=== PATIENT | female | born 1940 | race Caucasian/White ===

== ENCOUNTER 2019-12-26 11:33 | Emergency (ER) | payer MEDICARE, SELFPAY ==
--- NOTE | ~2019-12-26 | XR_ITS ---
EXAMINATION: XR chest 2V DATE: 12/26/2019 12:11 INDICATION: Shortness of breath TECHNIQUE: frontal and lateral views of the chest were obtained. COMPARISON: Chest radiograph dated 05/04/2019 FINDINGS: Minimal streaky bibasilar atelectasis. Calcified nodule at the left lung base consistent with old gra nulomatous disease. No other airspace opacities, pulmonary edema, pleural effusion or pneumothorax. T he cardiomediastinal silhouette is normal. Atherosclerotic thoracic aorta. Mild scattered degenerativ e skeletal changes. IMPRESSION: 1. Minimal bibasilar atelectasis. Reviewed, dictated and finalized at location [facility].
[2019-12-26 11:30] VITALS: BP 100/83; PULSE 89; RESP 15; TEMP 36.7; O2SAT 96
--- NOTE | 2019-12-26 11:37 | ED.SOB ---
HPI - SOB/Dyspnea General Chief Complaint: Shortness of Breath/Dyspnea Stated Complaint: SOB Time Seen by Provider: 12/26/19 11:36 Source: patient and EMS Mode of arrival: EMS Limitations: no limitations History of Present Illness HPI Narrative: Patient is a 79-year-old female with a history of COPD who presents for evaluation of cough and shortness of breath. Patient reports dry cough over the past several days, states that she has been having increased shortness of breath from baseline, is unable to go up even a stair to without becoming severely dyspneic. Patient denies fever, chills, chest pain. No calf pain or lower extremity swelling. Patient states that she does have a history of severe COPD and follows with Dr. Vega. She states she was supposed to see her furnace door tender tomorrow but canceled the appointment since she has been feeling so short of breath. Patient is not currently on any antibiotic therapy. She has tried albuterol nebulizer therapy with improvement in her symptoms. Patient is not on any home oxygen. Related Data Home Medications Medication Instructions Recorded Confirmed blood-glucose meter #1 each 04/24/19 06/28/19 diphenhydramine HCl 25 mg tablet 25 mg PO Q6H PRN 04/24/19 06/28/19 lancets #50 each 04/24/19 06/28/19 lansoprazole 15 mg capsule,delayed 15 mg PO DAILY 04/24/19 06/28/19 release sertraline 100 mg tablet 100 mg PO BID tablet 04/24/19 06/28/19 buspirone 5 mg tablet 5 mg PO TID 07/24/19 Allergies Allergy/AdvReac Type Severity Reaction Status Date / Time cephalexin Allergy Unknown Unknown Verified 12/26/19 11:58 ciprofloxacin Allergy Unknown Unknown Verified 12/26/19 11:58 clindamycin Allergy Unknown Unknown Verified 12/26/19 11:58 influenza virus vaccine, Allergy Unknown Unknown Verified 12/26/19 11:58 specific Influenza Virus Vaccines Allergy Unknown Unknown Verified 12/26/19 11:58 levofloxacin Allergy Unknown Unknown Verified 12/26/19 11:58 Penicillins Allergy Unknown Unknown Verified 12/26/19 11:58 pneumococcal vaccine Allergy Unknown Unknown Verified 12/26/19 11:58 Sulfa (Sulfonamide Allergy Unknown Unknown Verified 12/26/19 11:58 Antibiotics) tetanus and diphtheria Allergy Unknown Unknown Verified 12/26/19 11:58 toxoids tetanus immune globulin Allergy Unknown Unknown Verified 12/26/19 11:58 Tetanus Vaccines and Toxoid Allergy Unknown Unknown Verified 12/26/19 11:58 metformin AdvReac Unknown Verified 12/26/19 11:58 Review of Systems Review of Systems: Narrative: CONSTITUTIONAL: Denies fever, chills, or sweats. ENT: Denies rhinorrhea, congestion, sore throat, or otalgia. CARDIOVASCULAR: Denies chest pain, palpitations, or edema. RESPIRATORY: Reports cough and shortness of breath GASTROINTESTINAL: Denies abdominal pain, nausea, vomiting, or diarrhea. GENITOURINARY: Denies dysuria or hematuria. SKIN: Denies rash or itching. MUSCULOSKELETAL: Denies back pain, joint pain, or myalgia. NEUROLOGIC: Denies headache, numbness, or weakness. [facility] Past Medical History Medical History Bladder cancer Cataract Chronic pain Colitis COPD (chronic obstructive pulmonary disease) Depression Hyperlipidemia Hypertension Hypothyroidism Osteoarthritis Pneumonia Seasonal allergies Type 2 diabetes mellitus Surgical History Surgical History History of cataract removal with insertion of prosthetic lens Family History Family History Mother Hypertension Patient's mother is Family history of thoracic aortic aneurysm Sibling Patient's sister is in good health Acute myocardial infarction Father Family history of diabetes mellitus in first degree relative Family history of malignant neoplasm of brain, Onset Age: 85 Malignant neoplasm of prostate Bone tumor Father Diabetes mellitus Social Histor
--- NOTE | 2019-12-26 11:41 | ECG_ITS ---
Measurements Intervals [place] Rate: 83 P: 63 KS: 150 QRS: -47 QRSD: 82 T: 62 QT: 378 QTc: 445 Interpretive Statements SINUS RHYTHM LEFT ANTERIOR FASCICULAR BLOCK BASELINE ARTIFACT- I, II, III, AVR, AVL, AVF, V6 ABNORMAL ECG Electronically Signed On 12-26-2019 12:43:47 CDT by Parish Del Valle D.O.
[2019-12-26 12:04] LABS: Basophils Absolute Auto 0.1 K/mm3 (0.0-0.1); Basophils Percent Auto 0.8 % (0.2-1.2); Eosinophils Absolute Auto 0.5 K/mm3 (0-0.3); Eosinophils Percent Auto 4.6 % (0-4.4); Hematocrit 40.3 % (37.0-47.0); Hemoglobin 13.3 g/dL (12.0-15.0); Immature Granulocyte Absolute 0.02 K/mm3 (0.00-0.031); Immature Granulocyte Percent A 0.2 % (0-0.5); Lymphocytes Percent Auto 15.9 % (18.3-44.2); Mean Corpuscular Hemoglobin 29.7 pg (26-34); Mean Platelet Volume 9.5 fl (7.4-10.4); Monocytes Absolute Auto 0.7 K/mm3 (0.1-0.6); Monocytes Percent Auto 7.1 % (2.6-8.5); Neutrophils Absolute Auto 7.2 K/mm3 (1.3-6.7); Neutrophils Percent Auto 71.4 % (45.5-73.1); Platelet Count Result 211 k/mm3 (150-375); Red Blood Count 4.48 M/mm3 (4.2-5.4); Red Cell Distribution Width 13.2 % (11.5-14.5); White Blood Count 10.1 K/mm3 (4.5-10.0)
[2019-12-26 12:22] LABS: Blood Urea Nitrogen 19 mg/dL (7-17); Calcium 9.2 mg/dL (8.4-10.2); Carbon Dioxide 25 mmol/L (22-30); Chloride 102 mmol/L (98-107); Estimated CRCL calculation 54 ml/min; Estimated Glomerular Filt Rate > 60; Glucose 193 mg/dL (65-105); Potassium 4.5 mmol/L (3.4-5.0); Sodium 137 mmol/L (137-145)
[2019-12-26 12:48] VITALS: PULSE 83; RESP 21
[2019-12-26 13:15] VITALS: BP 110/89; PULSE 92; RESP 22; O2SAT 94
[2019-12-26 14:19] VITALS: PULSE 84; RESP 20; O2SAT 91
--- NOTE | 2019-12-26 14:40 | PC.NURSE ---
Pt walked devine with 02 monitoring. Pt remained 90-94% while walking and talking. EDP provider made aware
[2019-12-26 14:53] VITALS: BP 118/90; PULSE 92; RESP 21; O2SAT 94
[2019-12-26 23:23] LABS: SARS-CoV-2 RNA PCR Negative
== END 2019-12-26 14:55 | disposition home or self-care (01) ==
PROVIDERS: Emergency Provider Emergency Medicine; PCP Internal Medicine
DX: J44.1 Chronic obstructive pulmonary disease with (acute) exacerbation (principal); Z85.51 Personal history of malignant neoplasm of bladder; Z20.828 Contact with and (suspected) exposure to other viral communicable diseases; E78.5 Hyperlipidemia, unspecified; F32.9 Major depressive disorder, single episode, unspecified; I10 Essential (primary) hypertension; E03.9 Hypothyroidism, unspecified; M19.90 Unspecified osteoarthritis, unspecified site; E11.9 Type 2 diabetes mellitus without complications; Z87.891 Personal history of nicotine dependence; Z98.49 Cataract extraction status, unspecified eye; Z96.1 Presence of intraocular lens; I44.4 Left anterior fascicular block; Z79.84 Long term (current) use of oral hypoglycemic drugs
CPT/HCPCS: 36415; 71046; 80048; 85025; 87635; 93005; 99284; C9803; U0003

== ENCOUNTER 2020-01-21 10:46 | Outpatient (CLI) | payer MEDICARE, SELFPAY ==
[2020-01-21 11:30] LABS: Hemoglobin A1C 7.9 % (<5.7)
== END 2020-01-21 10:47 | disposition home or self-care (01) ==
PROVIDERS: PCP Internal Medicine; Visit Provider Nurse Practitioner
DX: E11.9 Type 2 diabetes mellitus without complications (principal)
CPT/HCPCS: 36415; 83036

== ENCOUNTER 2020-01-24 10:14 | Emergency (ER) | payer MEDICARE, SELFPAY ==
--- NOTE | ~2020-01-24 | CT_ITS ---
EXAMINATION: CT cervical spine wo con DATE: 01/24/2020 11:20 INDICATION: Fall from bed. Head and neck pain. TECHNIQUE: Computed tomography (CT) of the cervical spine was performed without intravenous contrast. Automated exposure control and iterative reconstruction technique were employed. Exam dose: 399.64 mGy-cm total exam DLP. COMPARISON: 04/03/2019 cervical spine FINDINGS: There is straightening of the cervical spine. There is minimal anterolisthesis at C4-5. There is severe degenerative disc disease, posterior spurring and mild retrolisthesis at C5-6. There is severe degenerative disc disease at C6-7. Particular prominent uncovertebral joint spurring is noted on the right at C5-6 and C6-7 and moderate ly probably on the left at C5-6. There is degenerative change of the apophyseal joints. C1 and C2 are normally aligned and the odontoid process is intact. No fracture or dislocation or lock ed facet is evident. No prevertebral soft tissue swelling. IMPRESSION: Extensive degenerative changes; no fracture or dislocation or locked facet Reviewed, dictated and finalized at [facility]. Reviewed, dictated and finalized at location A. IMPRESSION: Extensive degenerative changes; no fracture or dislocation or lock ed facet
--- NOTE | ~2020-01-24 | CT_ITS ---
EXAMINATION: CT chest abdomen pelvis w con DATE: 01/24/2020 11:20 INDICATION: Left rib pain post fall TECHNIQUE: Computed tomography (CT) of the chest, abdomen, and pelvis was performed with 100 mL Omnip aque-350 intravenous contrast. Automated exposure control and iterative reconstruction technique were employed. The dose-length product was 1408.18 mGy-cm. COMPARISON: Chest CT dated 04/06/[address] abdomen and pelvis dated 07/22/2015 FINDINGS: CHEST CT: Small thin-walled cavitary lesion in the right middle lobe. Diffuse mild bronchial wall thickening. B ronchiectasis in the right lower lobe with significant improvement in now minimal tree-in-bud opaciti es likely related to chronic infection. Discoid atelectasis at the posterior sulcus of the right lowe r lobe and mild discoid atelectasis at the posterior right upper lobe. Calcified left lower lobe nodu le consistent with old granulomatous disease. No pulmonary edema, pleural effusion or pneumothorax. H eart size is normal. Atherosclerotic coronary artery calcification. No pericardial effusion. Aortic v alve calcification. Thoracic aorta is normal in caliber with no dissection or traumatic aortic injury . Small sliding-type hiatal hernia. No pathologically enlarged thoracic lymphadenopathy. Mild thoraci c dextrocurvature with mild to moderate spondylosis. No rib fractures identified although acute nondi splaced rib fractures can be occult even on CT. ABDOMEN/PELVIS CT: Multiple small hepatic and splenic calcifications consistent with old granulomatous disease. Subtle g allstone at the neck of the normal-appearing gallbladder. No wall thickening or pericholecystic infla mmatory change to suggest acute cholecystitis. Pancreas and bilateral adrenal glands are normal. Ther e are bilateral renal cysts the larger on the left measuring 1.6 cm. There is moderate colonic divert iculosis with a sigmoid predominance. There is no adjacent inflammatory change to suggest diverticul itis. Small bowel and appendix are normal. Bladder is normal. The uterus is not identified and has radha kohler been surgically resected. Bilateral adnexa are unremarkable. No free intraperitoneal gas or flui d. No pathologically enlarged abdominal or pelvic lymphadenopathy. There is calcified atherosclerosis of the aorta and many of the other arteries. Moderate lumbar spondylosis with grade 1 spondylolisthe sis at L3-L4 through L5-S1 no acute fractures identified. IMPRESSION: 1. No fracture or acute vascular or visceral organ injury in the chest, abdomen or pelvis. 2. Bronchiectasis and significant improvement in prior tree-in-bud pattern in the right lower lobe radha kholer sequela of chronic infection. 3. Small sliding-type hiatal hernia. 4. Moderate diverticulosis. Reviewed, dictated and finalized at location A. IMPRESSION: 1. No fracture or acute vascular or visceral organ injury in the chest, abdomen or pelvis. 2. Bronchiectasis and significant improvement in prior tree-in-bud pattern in t he right lower lobe likely sequela of chronic infection. 3. Small sliding-type hiatal hernia. 4. Moderate diverticulosis.
--- NOTE | ~2020-01-24 | CT_ITS ---
EXAMINATION: CT brain wo con DATE: 01/24/2020 11:20 INDICATION: Fall from bed, striking head on nightstand; head and neck and body injuries. Left rib toney n. TECHNIQUE: Computed tomography (CT) of the head was performed without intravenous contrast. The mA wa s adjusted according to patient size. Iterative reconstruction technique was employed. Exam dose: 60 5.33 mGy-cm total exam DLP. COMPARISON: 04/03/2019 CT brain FINDINGS: There is cerebral atherosclerosis. There is nonspecific diminished attenuation of the cereb ral white matter, likely due to chronic small vessel ischemic changes. No intracranial mass lesion or hemorrhage or cerebrovascular accident is evident. No midline shift or mass effect. No subdural or epidural hematoma. No fracture or bone destruction of the cranial vault. Bilateral hyperostosis frontalis interna, not l ikely of any clinical significance. Minimal mucoperiosteal thickening of the left sphenoid sinus. The paranasal sinuses and mastoid air c ells are otherwise unremarkable. IMPRESSION: No acute intracranial finding or skull fracture Cerebral atherosclerosis and chronic small vessel ischemic changes of the cerebral white matter No significant change since 04/03/2019 Reviewed, dictated and finalized at [facility]. Reviewed, dictated and finalized at location A. IMPRESSION: No acute intracranial finding or skull fracture Cerebral atherosclerosis and chronic small vessel ischemic changes of the cereb ral white matter No significant change since 04/03/2019
[2020-01-24 10:19] VITALS: BP 142/79; PULSE 75; RESP 20; TEMP 36.9; O2SAT 97
[2020-01-24 11:00] LABS: Basophils Absolute Auto 0.1 K/mm3 (0.0-0.1); Basophils Percent Auto 0.5 % (0.2-1.2); Eosinophils Absolute Auto 0.5 K/mm3 (0-0.3); Eosinophils Percent Auto 4.5 % (0-4.4); Hematocrit 39.3 % (37.0-47.0); Hemoglobin 13.1 g/dL (12.0-15.0); Immature Granulocyte Absolute 0.04 K/mm3 (0.00-0.031); Immature Granulocyte Percent A 0.4 % (0-0.5); Lymphocytes Absolute Auto 3.38 K/mm3 (0.9-3.2); Lymphocytes Percent Auto 30.1 % (18.3-44.2); Mean Corpuscular HGB Conc 33.3 g/dl (32-36); Mean Corpuscular Hemoglobin 30.1 pg (26-34); Mean Corpuscular Volume 90.3 fl (80-100); Mean Platelet Volume 9.8 fl (7.4-10.4); Monocytes Absolute Auto 1.3 K/mm3 (0.1-0.6); Monocytes Percent Auto 11.7 % (2.6-8.5); Neutrophils Absolute Auto 5.9 K/mm3 (1.3-6.7); Neutrophils Percent Auto 52.8 % (45.5-73.1); Platelet Count Result 206 k/mm3 (150-375); Red Blood Count 4.35 M/mm3 (4.2-5.4); Red Cell Distribution Width 13.2 % (11.5-14.5); White Blood Count 11.2 K/mm3 (4.5-10.0)
[2020-01-24] MEDS: SODIUM CHLORIDE 0.9% IV 500 ML 999 ML IV CONT (11:00)
[2020-01-24 11:03] VITALS: BP 138/76; PULSE 82; RESP 20; O2SAT 96
[2020-01-24 11:12] LABS: Prothrombin Time 13.2 Seconds (11.1-14.7)
[2020-01-24 11:13] LABS: Estimated CRCL calculation 61 ml/min; Estimated Glomerular Filt Rate > 60
[2020-01-24 11:13] LABS: Partial Thromboplastin Time 24.8 SECONDS (22.3-36.8)
[2020-01-24 11:17] LABS: Alanine Aminotransferase 28 U/L (4-35); Albumin Level 4.3 g/dL (3.5-5.1); Alkaline Phosphatase 64 U/L (38-126); Anion Gap 13.7 mmol/L (7-16); Aspartate Amino Transferase 37 U/L (14-36); Bilirubin,Total 0.5 mg/dL (0.2-1.3); Blood Urea Nitrogen 19 mg/dL (7-17); Calcium 9.2 mg/dL (8.4-10.2); Carbon Dioxide 24 mmol/L (22-30); Chloride 101 mmol/L (98-107); Estimated CRCL calculation 61 ml/min; Estimated Glomerular Filt Rate > 60; Glucose 147 mg/dL (65-105); Potassium 4.7 mmol/L (3.4-5.0); Sodium 134 mmol/L (137-145)
--- NOTE | 2020-01-24 11:37 | ED.ABDPAIN ---
HPI - Abdominal Pain General Chief Complaint: Fall Stated Complaint: L RIB PAIN S/P FALL Time Seen by Provider: 01/24/20 10:16 Source: patient Mode of arrival: ambulatory Limitations: no limitations History of Present Illness HPI narrative: Patient is a 79-year-old female who presents with family after sustaining a ground-level fall in the middle night after slipping when getting out of bed falling into a sharp object striking her in the left ribs patient has had severe pain in the left lateral lower rib region since also struck the head and had a parietal hematoma. Patient denies syncope loss of consciousness lightheadedness dizziness. Patient with pain that has been persistent since the fall was able to get up in a short period of time his family came quickly. Patient has taken Aleve with minimal improvement presents per private vehicle in no distress. Related Data Home Medications Medication Instructions Recorded Confirmed blood-glucose meter #1 each 04/24/19 01/21/20 lansoprazole 15 mg capsule,delayed 15 mg PO DAILY 04/24/19 01/21/20 release buspirone 5 mg tablet 5 mg PO TID 07/24/19 01/21/20 budesonide [Pulmicort] 0.5 mg INHALATION BID 01/24/20 fluticasone propionate [Flonase 2 spray INTRANASAL Q12HR 01/24/20 Allergy Relief] ipratropium-albuterol 3 ml INHALATION Q4H PRN 01/24/20 nebivolol [Bystolic] 10 mg PO DAILY 01/24/20 01/24/20 sertraline 200 mg PO DAILY 01/24/20 01/24/20 Allergies Allergy/AdvReac Type Severity Reaction Status Date / Time cephalexin Allergy Unknown Unknown Verified 01/24/20 10:29 ciprofloxacin Allergy Unknown Unknown Verified 01/24/20 10:29 clindamycin Allergy Unknown Unknown Verified 01/24/20 10:29 influenza virus vaccine, Allergy Unknown Unknown Verified 01/24/20 10:29 specific Influenza Virus Vaccines Allergy Unknown Unknown Verified 01/24/20 10:29 levofloxacin Allergy Unknown Unknown Verified 01/24/20 10:29 Penicillins Allergy Unknown Unknown Verified 01/24/20 10:29 pneumococcal vaccine Allergy Unknown Unknown Verified 01/24/20 10:29 Sulfa (Sulfonamide Allergy Unknown Unknown Verified 01/24/20 10:29 Antibiotics) tetanus and diphtheria Allergy Unknown Unknown Verified 01/24/20 10:29 toxoids tetanus immune globulin Allergy Unknown Unknown Verified 01/24/20 10:29 Tetanus Vaccines and Toxoid Allergy Unknown Unknown Verified 01/24/20 10:29 metformin AdvReac Unknown Verified 01/24/20 10:29 Review of Systems Review of Systems: All systems reviewed & are unremarkable except as noted in HPI and below PMFSH Past Medical History Medical History Bladder cancer Cataract Chronic pain Colitis COPD (chronic obstructive pulmonary disease) COPD with exacerbation Depression Hyperlipidemia Hypertension Hypothyroidism Osteoarthritis Pneumonia Seasonal allergies Type 2 diabetes mellitus Surgical History Surgical History History of cataract removal with insertion of prosthetic lens Family History Family History Mother Hypertension Patient's mother is Family history of thoracic aortic aneurysm Sibling Patient's sister is in good health Acute myocardial infarction Father Family history of diabetes mellitus in first degree relative Family history of malignant neoplasm of brain, Onset Age: 85 Malignant neoplasm of prostate Bone tumor Father Diabetes mellitus Social History Social History Smoking packs per day: 2 Smoking cigarettes per day: 40.0 Years smoked: 58 Smoking pack-years: 116.00 Smoking status: Former smoker Tobacco type: cigarettes Second hand tobacco smoke exposure: Yes Smoking end date: 03/19/19 Alcohol intake: never Substance use: never Substance use type: does not use Gender identity (if verbaliz
[2020-01-24 12:47] LABS: Add Urine Microscopic? YES; Appearance Urine Clear (Clear); Bacteria Urine Trace /hpf; Bilirubin Urine Negative (Negative); Blood Urine Negative (Negative); Color Urine Straw (Yellow); Glucose Urine UA Negative (Negative); Ketones Urine Negative (Negative); Leukocyte Esterase Ur Negative LEU/UL (Negative); Nitrate Urine Negative (Negative); Protein Urine Negative (Negative); RBC Urine 0-2 /hpf (0-2); Urobilinogen Urine Negative mg/dL (<2.0); WBC Urine 0-3 /hpf
[2020-01-24 12:53] LABS: Specific Grav Ur 1.031 (1.001-1.035)
[2020-01-24] MEDS: KETOROLAC 15 MG/ML VIAL (*BKC) 10 MG IV PUSH (13:10)
[2020-01-24 13:33] VITALS: BP 123/85; PULSE 73; RESP 16; TEMP 36.8; O2SAT 97
== END 2020-01-24 13:35 | disposition home or self-care (01) ==
PROVIDERS: Emergency Medicine Emergency Medical Services; Emergency Provider Emergency Medicine; PCP Internal Medicine
DX: S09.90XA Unspecified injury of head, initial encounter (principal); S21.102A Unspecified open wound of left front wall of thorax without penetration into thoracic cavity, initial encounter; J44.9 Chronic obstructive pulmonary disease, unspecified; E11.9 Type 2 diabetes mellitus without complications; E78.5 Hyperlipidemia, unspecified; I10 Essential (primary) hypertension; E03.9 Hypothyroidism, unspecified; M19.90 Unspecified osteoarthritis, unspecified site; Z79.84 Long term (current) use of oral hypoglycemic drugs; F32.9 Major depressive disorder, single episode, unspecified; Z85.51 Personal history of malignant neoplasm of bladder; Z98.49 Cataract extraction status, unspecified eye; Z96.1 Presence of intraocular lens; Z87.891 Personal history of nicotine dependence; W06.XXXA Fall from bed, initial encounter
CPT/HCPCS: 36415; 70450; 71260; 72125; 74177; 80053; 81001; 85025; 85610; 85730; 96365; 96375; 99284; A9270; J0131; J1885; J7040; Q9967

== ENCOUNTER 2020-02-04 13:21 | Emergency (ER) | payer MEDICARE, SELFPAY ==
--- NOTE | ~2020-02-04 | XR_ITS ---
EXAMINATION: XR wrist LT min 3V EXAM DATE: 02/04/2020 13:52 INDICATION: Initial encounter following injury, with pain of the wrist bilaterally. TECHNIQUE: Left wrist frontal, frontal with ulnar deviation, oblique and lateral projections obtained and reviewed. There is no prior study for comparison. FINDINGS: Left wrist scapholunate joint space is maintained. There is mild to moderate 1st carpometac arpal primary osteoarthritis. There are no acute fractures or dislocations identified. There is no s ubcutaneous gas. The soft tissue is unremarkable. There are no radiopaque foreign bodies. IMPRESSION: 1. XR wrist LT min 3V exam without acute osseous findings. Reviewed, dictated and finalized at location B.
--- NOTE | ~2020-02-04 | XR_ITS ---
EXAMINATION: XR wrist RT min 3V EXAM DATE: 02/04/2020 13:52 INDICATION: Initial encounter following injury, with pain of the wrists. TECHNIQUE: Right wrist frontal, frontal with ulnar deviation, oblique and lateral projections obtain ed and reviewed. Comparison is made to prior examination from 03/08/2017. FINDINGS: Right wrist scapholunate joint space is maintained. There are no acute fractures or disloca tions identified. There is no subcutaneous gas. The soft tissue is unremarkable. There are no rad iopaque foreign bodies. IMPRESSION: 1. XR wrist RT min 3V exam without acute osseous findings. Reviewed, dictated and finalized at location B.
--- NOTE | 2020-02-04 13:26 | ED.EXTPRO ---
HPI - Extremity Problem General Chief complaint: Extremity Problem,Nontraumatic Stated complaint: Pain in both hands Source: patient and RN notes reviewed Mode of arrival: ambulatory Limitations: no limitations History of Present Illness HPI Narrative: The left handed patient, on several medications, presents with hand pain. The patient slipped last night, without falling, landing upright striking furnishings with her bilateral palms. She complains of mild pain and bruising of her proximal hand/distal wrist at the thenar eminences. No bleeding, deformity, snuffbox tenderness; symptoms are mild, worse with motion. Related Data Home Medications Medication Instructions Recorded Confirmed blood-glucose meter #1 each 04/24/19 01/21/20 lansoprazole 15 mg capsule,delayed 15 mg PO DAILY 04/24/19 01/21/20 release buspirone 5 mg tablet 5 mg PO TID 07/24/19 01/21/20 budesonide [Pulmicort] 0.5 mg INHALATION BID 01/24/20 fluticasone propionate [Flonase 2 spray INTRANASAL Q12HR 01/24/20 Allergy Relief] ipratropium-albuterol 3 ml INHALATION Q4H PRN 01/24/20 nebivolol [Bystolic] 10 mg PO DAILY 01/24/20 01/24/20 sertraline 200 mg PO DAILY 01/24/20 01/24/20 Allergies Allergy/AdvReac Type Severity Reaction Status Date / Time cephalexin Allergy Unknown Unknown Verified 01/24/20 10:29 ciprofloxacin Allergy Unknown Unknown Verified 01/24/20 10:29 clindamycin Allergy Unknown Unknown Verified 01/24/20 10:29 influenza virus vaccine, Allergy Unknown Unknown Verified 01/24/20 10:29 specific Influenza Virus Vaccines Allergy Unknown Unknown Verified 01/24/20 10:29 levofloxacin Allergy Unknown Unknown Verified 01/24/20 10:29 Penicillins Allergy Unknown Unknown Verified 01/24/20 10:29 pneumococcal vaccine Allergy Unknown Unknown Verified 01/24/20 10:29 Sulfa (Sulfonamide Allergy Unknown Unknown Verified 01/24/20 10:29 Antibiotics) tetanus and diphtheria Allergy Unknown Unknown Verified 01/24/20 10:29 toxoids tetanus immune globulin Allergy Unknown Unknown Verified 01/24/20 10:29 Tetanus Vaccines and Toxoid Allergy Unknown Unknown Verified 01/24/20 10:29 metformin AdvReac Unknown Verified 01/24/20 10:29 Review of Systems Review of Systems: Narrative: During history it is apparent patient has chronic, mild cough for which she says she missed her nebulizer treatment today, and saw her breeding manager with chest x-ray last week General/Constitutional: No weight loss,fever Eyes: N0: Redness,discharge Ears/Nose/Throat: No: Epistaxis,ear discharge Respiratory: Denies: Hemoptysis Gastrointestinal: No Vomiting, Bleeding-rectal Skin: No Lumps, eruption Neurologic: No Focal Weakness,Sz Hematologic: Denies: Petechiae/Purpura Psychiatric: No: Suicida ideationl All Other Systems: Reviewed and Negative PMFSH Social History Social History Smoking packs per day: 2 Smoking cigarettes per day: 40.0 Years smoked: 58 Smoking pack-years: 116.00 Smoking status: Former smoker Tobacco type: cigarettes Second hand tobacco smoke exposure: Yes Smoking end date: 03/19/19 Alcohol intake: never Substance use: never Substance use type: does not use Gender identity (if verbalized by the patient): Female Spiritual care concerns: No Agree to blood products: Yes Comments At time of signature, agree with nursing past medical, surgical, social and family history. There is no relevant family history pertinent to the presenting complaint Exam Narrative: Exam Narrative: General Appearance: Well appearing, Well nourished, No distress EYE: PERRLA, EOMI, Conjunctiva clear Ears: External ear normal Nose: Normal nose, Nares clear Neck: Supple Respiratory: Airway patent, No respiratory distress MS-hand: Normal strength (mostly intact, limited flexion/extension by pain), Tenderness prox thumb MC at thenar eminence , with mild decreased ROM, Swelling/ bruising bila
[2020-02-04 13:29] VITALS: BP 154/125; PULSE 80; RESP 30; TEMP 37.2; O2SAT 98
== END 2020-02-04 14:23 | disposition home or self-care (01) ==
PROVIDERS: Emergency Provider Emergency Medicine; PCP Internal Medicine
DX: S60.222A Contusion of left hand, initial encounter (principal); S60.221A Contusion of right hand, initial encounter; W18.41XA Slipping, tripping and stumbling without falling due to stepping on object, initial encounter; Z87.891 Personal history of nicotine dependence; E78.00 Pure hypercholesterolemia, unspecified; I10 Essential (primary) hypertension; J44.9 Chronic obstructive pulmonary disease, unspecified; K21.9 Gastro-esophageal reflux disease without esophagitis; M19.90 Unspecified osteoarthritis, unspecified site; E11.9 Type 2 diabetes mellitus without complications; F41.9 Anxiety disorder, unspecified; F32.9 Major depressive disorder, single episode, unspecified
CPT/HCPCS: 73110; 99214; G0463

== ENCOUNTER 2020-08-01 22:31 | Emergency (ER) | payer MEDICARE, SELFPAY ==
--- NOTE | ~2020-08-01 | XR_ITS ---
XR chest 1V portable DATE: 08/01/2020 23:34 INDICATION: Shortness of breath TECHNIQUE: Portable AP chest on August 01, 2020 at 2335 COMPARISON: 12/25/2019 PA and lateral chest 01/24/2020 CT chest abdomen pelvis FINDINGS: Normal heart size. Is aortic calcification and mild unfolding. No hilar or mediastinal enla rgement. Bilateral hyperinflation. There is mild infiltrate and/atelectasis in the lower lung zones. No pleural effusion or pulmonary vascular congestion or pneumothorax. Diffuse osteopenia. IMPRESSION: Patchy bilateral lower lung infiltrate and/atelectasis Bilateral hyperinflation Reviewed, dictated and finalized at location A. [employer]
[2020-08-01 22:31] VITALS: BP 141/72; PULSE 101; RESP 20; TEMP 36.7; O2SAT 96
--- NOTE | 2020-08-01 22:57 | ECG_ITS ---
Measurements Intervals [place] Rate: 103 P: 72 DC: 139 QRS: -80 QRSD: 82 T: 69 QT: 345 QTc: 453 Interpretive Statements SINUS TACHYCARDIA LEFT AXIS DEVIATION BORDERLINE R WAVE PROGRESSION, ANTERIOR LEADS BORDERLINE ECG Electronically Signed On 08-02-2020 8:10:27 PREPRESS PROOFER by Parish Del Valle D.O.
--- NOTE | 2020-08-01 22:58 | ED.SOB ---
HPI - SOB/Dyspnea General Chief Complaint: Shortness of Breath/Dyspnea Stated Complaint: high bs and SOB Time Seen by Provider: 08/01/20 22:42 Source: patient Mode of arrival: EMS Limitations: no limitations History of Present Illness HPI Narrative: A 79-year-old female comes into the emergency department with complaints of shortness of breath and pain. Patient states that she has a history of spastic colon and sometimes this can cause pain. She also notes that she has a history of COPD and has been taking breathing treatments for this. She notes that she has been using multiple breathing treatments a day, attributing this to the extreme cold weather. She denies any cough, body aches, headaches or fever/chills. Patient states that she cannot recall when the last time she was tested for Covid. She is not aware that she has been around anybody with Covid. Patient denies any chest pain. She also notes that her blood sugars have been elevated and that this was the other reason for coming in. She stated that when she was picked up her blood pressures were noted to be very high as well. Related Data Home Medications Medication Instructions Recorded Confirmed lansoprazole 15 mg capsule,delayed 15 mg PO DAILY 04/24/19 05/05/20 release buspirone 5 mg tablet 5 mg PO TID 07/24/19 05/05/20 fluticasone propionate [Flonase 2 spray INTRANASAL Q12HR 01/24/20 05/05/20 Allergy Relief] ipratropium-albuterol 3 ml INHALATION Q4H PRN 01/24/20 05/05/20 sertraline 200 mg PO DAILY 01/24/20 05/05/20 Allergies Allergy/AdvReac Type Severity Reaction Status Date / Time cephalexin Allergy Unknown Unknown Verified 05/05/20 10:28 ciprofloxacin Allergy Unknown Unknown Verified 05/05/20 10:28 clindamycin Allergy Unknown Unknown Verified 05/05/20 10:28 influenza virus vaccine, Allergy Unknown Unknown Verified 05/05/20 10:28 specific Influenza Virus Vaccines Allergy Unknown Unknown Verified 05/05/20 10:28 levofloxacin Allergy Unknown Unknown Verified 05/05/20 10:28 Penicillins Allergy Unknown Unknown Verified 05/05/20 10:28 pneumococcal vaccine Allergy Unknown Unknown Verified 05/05/20 10:28 Sulfa (Sulfonamide Allergy Unknown Unknown Verified 05/05/20 10:28 Antibiotics) tetanus and diphtheria Allergy Unknown Unknown Verified 05/05/20 10:28 toxoids tetanus immune globulin Allergy Unknown Unknown Verified 05/05/20 10:28 Tetanus Vaccines and Toxoid Allergy Unknown Unknown Verified 05/05/20 10:28 metformin AdvReac Unknown Verified 05/05/20 10:28 Review of Systems Review of Systems: Narrative: CONSTITUTIONAL: Denies fever, chills, or sweats. EYES: Denies visual changes, redness, or discharge. ENT: Denies rhinorrhea, congestion, sore throat, or otalgia. CARDIOVASCULAR: Denies chest pain, palpitations, or edema. RESPIRATORY: Denies cough or dyspnea. GASTROINTESTINAL: Denies abdominal pain, nausea, vomiting, or diarrhea. GENITOURINARY: Denies dysuria or hematuria. SKIN: Denies rash or itching. MUSCULOSKELETAL: Denies back pain, joint pain, or myalgia. NEUROLOGIC: Denies headache, numbness, dizziness, or weakness. PSYCHIATRIC: Denies anxiety or depression. [facility] Past Medical History Medical History (Updated 08/02/20 @ 00:07 by Francisco Knott DO) Bladder cancer Cataract Chronic pain Colitis COPD (chronic obstructive pulmonary disease) COPD with exacerbation Depression Hyperlipidemia Hypertension Hypothyroidism Osteoarthritis Pneumonia Seasonal allergies Type 2 diabetes mellitus Surgical History Surgical History History of cataract removal with insertion of prosthetic lens Family History Family History Mother Hypertension Patient's mother is Family history of thoracic aortic aneurysm Sibling Patient's sister is in good health Acute myocardial infarction Father Family history of diabetes mellitus in first degre
[2020-08-01] MEDS: methylPREDNISolone SOD SUCC 125 MG VIAL IV PUSH (23:09)
[2020-08-01] MEDS: ALBUTEROL SULFATE NEB 2.5 MG/0.5 ML INH 5 MG INHALATION (23:26)
[2020-08-01] MEDS: IPRATROPIUM BR 0.02% INH SOLN 0.5 MG/2.5 ML VIAL INHALATION (23:26)
[2020-08-01 23:27] VITALS: PULSE 102; RESP 16
[2020-08-01 23:33] LABS: Basophils Absolute Auto 0.1 K/mm3 (0.0-0.1); Basophils Percent Auto 0.7 % (0.2-1.2); Eosinophils Absolute Auto 0.5 K/mm3 (0-0.3); Eosinophils Percent Auto 5.4 % (0-4.4); Hematocrit 40.4 % (37.0-47.0); Hemoglobin 13.3 g/dL (12.0-15.0); Immature Granulocyte Absolute 0.02 K/mm3 (0.00-0.031); Immature Granulocyte Percent A 0.2 % (0-0.5); Lymphocytes Absolute Auto 2.81 K/mm3 (0.9-3.2); Lymphocytes Percent Auto 30.5 % (18.3-44.2); Mean Corpuscular HGB Conc 32.9 g/dl (32-36); Mean Corpuscular Hemoglobin 29.8 pg (26-34); Mean Corpuscular Volume 90.6 fl (80-100); Monocytes Percent Auto 10.4 % (2.6-8.5); Neutrophils Absolute Auto 4.9 K/mm3 (1.3-6.7); Neutrophils Percent Auto 52.8 % (45.5-73.1); Platelet Count Result 198 k/mm3 (150-375); Red Blood Count 4.46 M/mm3 (4.2-5.4); Red Cell Distribution Width 13.4 % (11.5-14.5); White Blood Count 9.2 K/mm3 (4.5-10.0)
[2020-08-01 23:34] VITALS: PULSE 104; RESP 14
[2020-08-01 23:43] LABS: Alanine Aminotransferase 25 U/L (4-35); Alkaline Phosphatase 81 U/L (38-126); Anion Gap 6 mmol/L (8-16); Aspartate Amino Transferase 33 U/L (14-36); Bilirubin,Total 0.5 mg/dL (0.2-1.3); Blood Urea Nitrogen 19 mg/dL (7-17); Calcium 9.3 mg/dL (8.4-10.2); Carbon Dioxide 27 mmol/L (22-30); Chloride 102 mmol/L (98-107); Estimated CRCL calculation 69 ml/min; Estimated Glomerular Filt Rate > 60; Glucose 384 mg/dL (65-105); Potassium 4.4 mmol/L (3.4-5.0); Sodium 135 mmol/L (137-145)
[2020-08-02 00:23] VITALS: BP 136/84; PULSE 102; RESP 20; TEMP 36.7; O2SAT 98
== END 2020-08-02 00:23 | disposition home or self-care (01) ==
PROVIDERS: Emergency Provider Emergency Medicine; PCP Internal Medicine
DX: J44.1 Chronic obstructive pulmonary disease with (acute) exacerbation (principal); E11.65 Type 2 diabetes mellitus with hyperglycemia; E78.5 Hyperlipidemia, unspecified; I10 Essential (primary) hypertension; E03.9 Hypothyroidism, unspecified; Z85.51 Personal history of malignant neoplasm of bladder; M19.90 Unspecified osteoarthritis, unspecified site; F32.9 Major depressive disorder, single episode, unspecified; Z98.49 Cataract extraction status, unspecified eye; Z96.1 Presence of intraocular lens; Z87.891 Personal history of nicotine dependence; R00.0 Tachycardia, unspecified; R94.31 Abnormal electrocardiogram [ECG] [EKG]; Z79.84 Long term (current) use of oral hypoglycemic drugs
CPT/HCPCS: 36415; 71045; 80053; 85025; 93005; 94640; 96374; 99284; J2930

== ENCOUNTER 2020-09-01 11:34 | Outpatient (CLI) | payer MEDICARE, SELFPAY ==
[2020-09-01 12:00] LABS: Basophils Absolute Auto 0.1 K/mm3 (0.0-0.1); Basophils Percent Auto 0.8 % (0.2-1.2); Eosinophils Absolute Auto 0.6 K/mm3 (0-0.3); Eosinophils Percent Auto 6.2 % (0-4.4); Hematocrit 43.4 % (37.0-47.0); Hemoglobin 14.2 g/dL (12.0-15.0); Immature Granulocyte Absolute 0.03 K/mm3 (0.00-0.031); Immature Granulocyte Percent A 0.3 % (0-0.5); Lymphocytes Absolute Auto 2.61 K/mm3 (0.9-3.2); Mean Corpuscular HGB Conc 32.7 g/dl (32-36); Mean Corpuscular Hemoglobin 29.3 pg (26-34); Mean Corpuscular Volume 89.5 fl (80-100); Mean Platelet Volume 9.5 fl (7.4-10.4); Monocytes Absolute Auto 0.9 K/mm3 (0.1-0.6); Monocytes Percent Auto 8.9 % (2.6-8.5); Neutrophils Absolute Auto 5.5 K/mm3 (1.3-6.7); Neutrophils Percent Auto 56.8 % (45.5-73.1); Platelet Count Result 211 k/mm3 (150-375); Red Blood Count 4.85 M/mm3 (4.2-5.4); Red Cell Distribution Width 13.4 % (11.5-14.5); White Blood Count 9.7 K/mm3 (4.5-10.0)
[2020-09-01 12:13] LABS: Alanine Aminotransferase 23 U/L (4-35); Albumin Level 4.4 g/dL (3.5-5.1); Alkaline Phosphatase 71 U/L (38-126); Anion Gap 7 mmol/L (8-16); Aspartate Amino Transferase 31 U/L (14-36); Bilirubin,Total 0.5 mg/dL (0.2-1.3); Blood Urea Nitrogen 17 mg/dL (7-17); Calcium 9.6 mg/dL (8.4-10.2); Carbon Dioxide 29 mmol/L (22-30); Chloride 103 mmol/L (98-107); Cholesterol 162 mg/dL (0-200); Estimated Glomerular Filt Rate 60; Glucose 258 mg/dL (65-105); HDL Direct 53 mg/dL; Potassium 4.3 mmol/L (3.4-5.0); Sodium 139 mmol/L (137-145); Triglycerides 179 mg/dL (<150)
[2020-09-01 12:23] LABS: LDL Cholesterol Direct 81 mg/dL
[2020-09-01 17:51] LABS: Hemoglobin A1C 9.7 % (<5.7)
== END 2020-09-01 11:35 | disposition home or self-care (01) ==
LOC: ANHLAB 17:32
PROVIDERS: Nurse Practitioner; PCP Internal Medicine; Visit Provider Nurse Practitioner
DX: E78.5 Hyperlipidemia, unspecified (principal); I10 Essential (primary) hypertension; E11.9 Type 2 diabetes mellitus without complications
CPT/HCPCS: 36415; 80053; 80061; 83036; 85025

== ENCOUNTER 2021-01-25 10:09 | Emergency (ER) | payer MEDICARE, SELFPAY ==
--- NOTE | 2021-01-25 10:14 | ED.GENADULT ---
HPI - General Adult General Chief complaint: Extremity Injury, Upper Stated complaint: pos finger infection Time Seen by Provider: 01/25/21 10:13 Source: patient Mode of arrival: ambulatory Limitations: no limitations History of Present Illness HPI narrative: Pleasant 80 y/o female. PMHx YOHANA, MDD, GERD, HTN, DM. Presents to [facility] this AM with acute complaints of possible finger infection . Pt reports increased erythema and tenderness located to her RT pointer finger. She denies acute upper extremity injury or trauma. Client reports to have been picking at a hang nail prior to manifestation onset. No fever, myalgia. No bony or joint pain. She has not yet sought out medical evaluation until today, now. She reports 'soaking her finger at home', with minimal relief. Client is w/o additional acute c/o illnesses upon PE. Related Data Home Medications Medication Instructions Recorded Confirmed lansoprazole 15 mg capsule,delayed 15 mg PO DAILY 04/24/19 01/25/21 release buspirone 5 mg tablet 5 mg PO TID 07/24/19 01/25/21 fluticasone propionate [Flonase 2 spray INTRANASAL Q12HR 01/24/20 01/25/21 Allergy Relief] sertraline 200 mg PO DAILY 01/24/20 01/25/21 Allergies Allergy/AdvReac Type Severity Reaction Status Date / Time cephalexin Allergy Unknown Unknown Verified 01/25/21 10:15 ciprofloxacin Allergy Unknown Unknown Verified 01/25/21 10:15 clindamycin Allergy Unknown Unknown Verified 01/25/21 10:15 influenza virus vaccine, Allergy Unknown Unknown Verified 01/25/21 10:15 specific Influenza Virus Vaccines Allergy Unknown Unknown Verified 01/25/21 10:15 levofloxacin Allergy Unknown Unknown Verified 01/25/21 10:15 Penicillins Allergy Unknown Unknown Verified 01/25/21 10:15 pneumococcal vaccine Allergy Unknown Unknown Verified 01/25/21 10:15 Sulfa (Sulfonamide Allergy Unknown Unknown Verified 01/25/21 10:15 Antibiotics) tetanus and diphtheria Allergy Unknown Unknown Verified 01/25/21 10:15 toxoids tetanus immune globulin Allergy Unknown Unknown Verified 01/25/21 10:15 Tetanus Vaccines and Toxoid Allergy Unknown Unknown Verified 01/25/21 10:15 metformin AdvReac Unknown Verified 01/25/21 10:15 Review of Systems Review of Systems: CONSTITUTIONAL: Denies fever, chills, sweats. EYES: Denies visual changes, redness, discharge. ENT: Denies rhinorrhea, congestion, sore throat, otalgia. CARDIOVASCULAR: Denies chest pain, palpitations, edema. RESPIRATORY: Denies dyspnea, wheezing, cough GASTROINTESTINAL: Denies abdominal pain, nausea, vomiting, diarrhea. GENITOURINARY: Denies dysuria, hematuria, abnormal discharge SKIN: Denies rash or itching. Finger redness. MUSCULOSKELETAL: Denies acute back pain, joint pain, or myalgia. NEUROLOGIC: Denies numbness, or focal weakness. PSYCHIATRIC: Denies anxiety or depression. All systems reviewed & are unremarkable except as noted in HPI and below PMFSH Past Medical History Medical History (Updated 01/25/21 @ 10:38 by STEPHANIE Nava) Bladder cancer Cataract Chronic pain Colitis COPD (chronic obstructive pulmonary disease) COPD with exacerbation Depression Hyperlipidemia Hypertension Hypothyroidism Osteoarthritis Pneumonia Seasonal allergies Type 2 diabetes mellitus Surgical History Surgical History History of cataract removal with insertion of prosthetic lens Family History Family History Mother Hypertension Patient's mother is Family history of thoracic aortic aneurysm Sibling Patient's sister is in good health Acute myocardial infarction Father Family history of diabetes mellitus in first degree relative Family history of malignant neoplasm of brain, Onset Age: 85 Malignant neoplasm of prostate Bone tumor Father Diabetes mellitus Social History Social History (Reviewed 01/25/21 @ 10:18 b
[2021-01-25 10:15] VITALS: BP 122/89; PULSE 91; RESP 20; TEMP 36.3; O2SAT 96
[2021-01-25 10:22] VITALS: BP 122/89; PULSE 91; RESP 20; TEMP 36.3; O2SAT 96
[2021-01-25] MEDS: LIDOCAINE, EPINEPHRINE, TETRACAINE VISCOUS SOLN 3 ML TOPICAL (10:48)
== END 2021-01-25 10:46 | disposition home or self-care (01) ==
PROVIDERS: Emergency Provider Nurse Practitioner Adult Health; PCP Internal Medicine
DX: L03.011 Cellulitis of right finger (principal); Z87.891 Personal history of nicotine dependence; J44.9 Chronic obstructive pulmonary disease, unspecified; F32.9 Major depressive disorder, single episode, unspecified; E78.5 Hyperlipidemia, unspecified; E03.9 Hypothyroidism, unspecified; M19.90 Unspecified osteoarthritis, unspecified site; E11.9 Type 2 diabetes mellitus without complications; Z98.49 Cataract extraction status, unspecified eye; Z96.1 Presence of intraocular lens
CPT/HCPCS: 10160; 99213; G0463

== ENCOUNTER 2021-04-23 10:14 | Outpatient (CLI) | payer MEDICARE, SELFPAY ==
[2021-04-23 11:01] LABS: Hemoglobin A1C 7.6 % (<5.7)
[2021-04-23 11:05] LABS: Anion Gap 9 mmol/L (8-16); Blood Urea Nitrogen 21 mg/dL (7-17); Calcium 9.9 mg/dL (8.4-10.2); Carbon Dioxide 28 mmol/L (22-30); Chloride 103 mmol/L (98-107); Estimated Glomerular Filt Rate 60; Glucose 166 mg/dL (65-110); Potassium 4.5 mmol/L (3.4-5.0); Sodium 140 mmol/L (137-145)
[2021-04-23 11:18] LABS: Creatinine Urine 65.9 mg/dL
[2021-04-23 11:23] LABS: MALB Creatinine Ratio 10.9 mg/g (0-30); Microalbumin Urine Random 7.2 mg/L (0-16.7)
== END 2021-04-23 10:15 | disposition home or self-care (01) ==
PROVIDERS: PCP Internal Medicine; Visit Provider Clinical Nurse Specialist
DX: E11.9 Type 2 diabetes mellitus without complications (principal)
CPT/HCPCS: 36415; 80048; 82043; 83036

== ENCOUNTER 2021-05-03 16:56 | Emergency (ER) | payer MEDICARE, SELFPAY ==
--- NOTE | 2021-05-03 16:58 | ED.SKABFB ---
HPI - Skin/Abscess/Foreign Bdy General Chief complaint: Skin/Abscess/Foreign Body Stated complaint: rash Time Seen by Provider: 05/03/21 16:58 Source: patient and RN notes reviewed History of Present Illness HPI narrative: Patient is an 80-year-old female who presents the urgent care with complaints of a rash. Patient states that she noticed it on her right arm yesterday which is now spread to her abdomen, legs and bilateral arms. Patient states that her dentist put her on clindamycin last , which was noted on her allergy medication, and she developed the rest as of yesterday. Patient has not taken anything [id number] for her symptoms. States that she was prescribed Flagyl after the clindamycin gave her severe diarrhea and she has not yet taken the Flagyl. No other complaints. Distress noted. Patient aware of the plan of care. Some parts of this dictation were generated by voice recognition software and may contain typographical and/or grammatical inaccuracies. Related Data Home Medications Medication Instructions Recorded Confirmed lansoprazole 15 mg capsule,delayed 15 mg PO DAILY 04/24/19 05/03/21 release buspirone 5 mg tablet 5 mg PO TID 07/24/19 05/03/21 fluticasone propionate [Flonase 2 spray INTRANASAL Q12HR 01/24/20 05/03/21 Allergy Relief] sertraline 200 mg PO DAILY 01/24/20 05/03/21 Allergies Allergy/AdvReac Type Severity Reaction Status Date / Time cephalexin Allergy Unknown Unknown Verified 05/03/21 16:59 ciprofloxacin Allergy Unknown Unknown Verified 05/03/21 16:59 clindamycin Allergy Unknown Unknown Verified 05/03/21 16:59 influenza virus vaccine, Allergy Unknown Unknown Verified 05/03/21 16:59 specific Influenza Virus Vaccines Allergy Unknown Unknown Verified 05/03/21 16:59 levofloxacin Allergy Unknown Unknown Verified 05/03/21 16:59 Penicillins Allergy Unknown Unknown Verified 05/03/21 16:59 pneumococcal vaccine Allergy Unknown Unknown Verified 05/03/21 16:59 Sulfa (Sulfonamide Allergy Unknown Unknown Verified 05/03/21 16:59 Antibiotics) tetanus and diphtheria Allergy Unknown Unknown Verified 05/03/21 16:59 toxoids tetanus immune globulin Allergy Unknown Unknown Verified 05/03/21 16:59 Tetanus Vaccines and Toxoid Allergy Unknown Unknown Verified 05/03/21 16:59 metformin AdvReac Unknown Verified 05/03/21 16:59 Review of Systems Review of Systems: CONSTITUTIONAL: Denies fever, chills, or sweats. EYES: Denies visual changes, redness, or discharge. ENT: Denies rhinorrhea, congestion, sore throat, or otalgia. CARDIOVASCULAR: Denies chest pain, palpitations, or edema. RESPIRATORY: Denies cough or dyspnea. GASTROINTESTINAL: Denies abdominal pain, nausea, vomiting, or diarrhea. GENITOURINARY: Denies dysuria or hematuria. SKIN: Reports of an itchy red rash throughout the body MUSCULOSKELETAL: Denies back pain, joint pain, or myalgia. NEUROLOGIC: Denies headache, numbness, or weakness. All other systems reviewed are negative, except as documented in HPI. [facility] Past Medical History Medical History (Updated 05/03/21 @ 17:13 by ISMAEL Wetzel) Bladder cancer Cataract Chronic pain Colitis COPD (chronic obstructive pulmonary disease) COPD with exacerbation Depression Hyperlipidemia Hypertension Hypothyroidism Osteoarthritis Pneumonia Seasonal allergies Type 2 diabetes mellitus Surgical History Surgical History History of cataract removal with insertion of prosthetic lens Family History Family History Mother Hypertension Patient's mother is Family history of thoracic aortic aneurysm Sibling Patient's sister is in good health Acute myocardial infarction Father Family history of diabetes mellitus in first degree relative Family history of malignant neoplasm of brain, Onset Age: 85 Malignant neoplasm of prostate Bone tumor Father Oseas
[2021-05-03 17:00] VITALS: BP 135/88; PULSE 89; RESP 16; TEMP 36.6; O2SAT 95
== END 2021-05-03 17:22 | disposition home or self-care (01) ==
PROVIDERS: Emergency Provider Nurse Practitioner Family; PCP Internal Medicine
DX: R21 Rash and other nonspecific skin eruption (principal); T78.40XA Allergy, unspecified, initial encounter; J44.9 Chronic obstructive pulmonary disease, unspecified; E78.5 Hyperlipidemia, unspecified; I10 Essential (primary) hypertension; E03.9 Hypothyroidism, unspecified; M19.90 Unspecified osteoarthritis, unspecified site; E11.9 Type 2 diabetes mellitus without complications; Z85.51 Personal history of malignant neoplasm of bladder; Z98.49 Cataract extraction status, unspecified eye; Z96.1 Presence of intraocular lens; F32.A Depression, unspecified
CPT/HCPCS: 99213; G0463

== ENCOUNTER 2021-05-24 17:30 | Emergency (ER) | payer MEDICARE, SELFPAY ==
--- NOTE | ~2021-05-24 | XR_ITS ---
EXAMINATION: XR chest 2V EXAM DATE: 05/24/2021 22:05 INDICATION: Lt Side Chest Pain, left upper quadrant Pain,X30 Mins,Hx Bladder Cancer, COPD. TECHNIQUE: Frontal and lateral projections of the chest obtained and reviewed. Comparison is made to prior examination from 08/29/2020. FINDINGS: The lungs are clear. There are no pleural effusions. The cardiomediastinal silhouette i s within normal limits. There is no pneumothorax suspected. The bones and soft tissues are unremark able. IMPRESSION: No acute cardiopulmonary findings. Reviewed, dictated and finalized at location A. [employer]
[2021-05-24 17:34] VITALS: BP 143/73; PULSE 94; RESP 18; TEMP 36.1; O2SAT 96
--- NOTE | 2021-05-24 17:40 | ECG_ITS ---
Measurements Intervals [place] Rate: 83 P: 66 UT: 134 QRS: -32 QRSD: 90 T: 59 QT: 377 QTc: 445 Interpretive Statements SINUS RHYTHM LEFT AXIS DEVIATION BORDERLINE R WAVE PROGRESSION, ANTERIOR LEADS BASELINE ARTIFACT- III BORDERLINE ECG Electronically Signed On 05-24-2021 20:06:02 [employer] by Parish Del Valle D.O.
--- NOTE | 2021-05-24 20:58 | ED.ABDPAIN ---
HPI - Abdominal Pain General Chief Complaint: Abdominal Pain Stated Complaint: pain under left breast Time Seen by Provider: 05/24/21 20:58 Source: patient Mode of arrival: ambulatory Limitations: no limitations History of Present Illness HPI narrative: Patient is an 80 year old female history of COPD, Type II DM, Spinal stenosis, presenting for evaluation of left lower chest pain. Stabbing in nature, located underneath left breast. No inciting events; no recent heavy bending or lifting. Patient was at rest when the pain began. Patient does report pain wrapping around to left back. Pt called EMS due to severity of the pain. Exacerbating factors worsened with touch. Patient denies rash. She has a chronic cough, which is not worse than normal. No vomiting or abdominal pain. No back pain or flank pain. No calf swelling or calf pain. No rashes. Related Data Home Medications Medication Instructions Recorded Confirmed lansoprazole 15 mg capsule,delayed 15 mg PO DAILY 04/24/19 05/03/21 release buspirone 5 mg tablet 5 mg PO TID 07/24/19 05/03/21 fluticasone propionate [Flonase 2 spray INTRANASAL Q12HR 01/24/20 05/03/21 Allergy Relief] sertraline 200 mg PO DAILY 01/24/20 05/03/21 Allergies Allergy/AdvReac Type Severity Reaction Status Date / Time cephalexin Allergy Unknown Unknown Verified 05/24/21 21:52 ciprofloxacin Allergy Unknown Unknown Verified 05/24/21 21:52 clindamycin Allergy Unknown Unknown Verified 05/24/21 21:52 influenza virus vaccine, Allergy Unknown Unknown Verified 05/24/21 21:52 specific Influenza Virus Vaccines Allergy Unknown Unknown Verified 05/24/21 21:52 levofloxacin Allergy Unknown Unknown Verified 05/24/21 21:52 Penicillins Allergy Unknown Unknown Verified 05/24/21 21:52 pneumococcal vaccine Allergy Unknown Unknown Verified 05/24/21 21:52 Sulfa (Sulfonamide Allergy Unknown Unknown Verified 05/24/21 21:52 Antibiotics) tetanus and diphtheria Allergy Unknown Unknown Verified 05/24/21 21:52 toxoids tetanus immune globulin Allergy Unknown Unknown Verified 05/24/21 21:52 Tetanus Vaccines and Toxoid Allergy Unknown Unknown Verified 05/24/21 21:52 metformin AdvReac Unknown Verified 05/24/21 21:52 Review of Systems Review of Systems: CONSTITUTIONAL: Denies fever, chills, or sweats. EYES: Denies visual changes, redness, or discharge. ENT: Denies rhinorrhea, congestion, sore throat, or otalgia. CARDIOVASCULAR: Reports left chest pain, denies palpitations RESPIRATORY: Reports chronic cough without dyspnea. GASTROINTESTINAL: Denies abdominal pain, nausea, vomiting, or diarrhea. GENITOURINARY: Denies dysuria or hematuria. SKIN: Denies rash or itching. MUSCULOSKELETAL: Denies back pain, joint pain, or myalgia. NEUROLOGIC: Denies headache, numbness, or weakness. [facility] Past Medical History Medical History (Updated 05/25/21 @ 00:39 by Ignacia Tenorio MD) Bladder cancer Cataract Chronic pain Colitis COPD (chronic obstructive pulmonary disease) COPD with exacerbation Depression Hyperlipidemia Hypertension Hypothyroidism Osteoarthritis Pneumonia Seasonal allergies Type 2 diabetes mellitus Surgical History Surgical History History of cataract removal with insertion of prosthetic lens Family History Family History Mother Hypertension Patient's mother is Family history of thoracic aortic aneurysm Sibling Patient's sister is in good health Acute myocardial infarction Father Family history of diabetes mellitus in first degree relative Family history of malignant neoplasm of brain, Onset Age: 85 Malignant neoplasm of prostate Bone tumor Father Diabetes mellitus Social History Social History Smoking packs per day: 2 Smoking cigarettes per day: 40.0 Years smoked: 58 Smoking pack-years: 116.00 S
[2021-05-24 21:52] VITALS: BP 134/77; PULSE 85; RESP 18; O2SAT 96
[2021-05-24] MEDS: SODIUM CHLORIDE 0.9% IV 1,000 ML 999 ML IV CONT (21:54)
[2021-05-24] MEDS: KETOROLAC (*BKC) 60 MG/2 ML VIAL 15 MG IM (21:54)
[2021-05-24 22:38] LABS: Basophils Absolute Auto 0.1 K/mm3 (0.0-0.1); Basophils Percent Auto 0.6 % (0.2-1.2); Eosinophils Absolute Auto 0.1 K/mm3 (0-0.3); Eosinophils Percent Auto 1.3 % (0-4.4); Hematocrit 39.3 % (37.0-47.0); Hemoglobin 13.3 g/dL (12.0-15.0); Immature Granulocyte Absolute 0.03 K/mm3 (0.00-0.031); Immature Granulocyte Percent A 0.3 % (0-0.5); Lymphocytes Absolute Auto 2.73 K/mm3 (0.9-3.2); Mean Corpuscular HGB Conc 33.8 g/dl (32-36); Mean Corpuscular Hemoglobin 31.1 pg (26-34); Mean Corpuscular Volume 91.8 fl (80-100); Mean Platelet Volume 9.8 fl (7.4-10.4); Monocytes Absolute Auto 0.9 K/mm3 (0.1-0.6); Neutrophils Absolute Auto 5.3 K/mm3 (1.3-6.7); Neutrophils Percent Auto 57.8 % (45.5-73.1); Platelet Count Result 169 k/mm3 (150-375); Red Blood Count 4.28 M/mm3 (4.2-5.4); Red Cell Distribution Width 13.2 % (11.5-14.5); White Blood Count 9.1 K/mm3 (4.5-10.0)
[2021-05-24 22:41] LABS: Anion Gap 8 mmol/L (8-16); Blood Urea Nitrogen 23 mg/dL (7-17); Calcium 9.3 mg/dL (8.4-10.2); Carbon Dioxide 26 mmol/L (22-30); Chloride 103 mmol/L (98-107); Estimated CRCL calculation 48 ml/min; Estimated Glomerular Filt Rate > 60; Glucose 198 mg/dL (65-110); Potassium 4.2 mmol/L (3.4-5.0); Sodium 137 mmol/L (137-145)
[2021-05-24 22:44] LABS: D Dimer 0.42 ug/mL (<0.48)
[2021-05-24 22:52] LABS: INR 0.9; Prothrombin Time 12.5 Seconds (11.1-14.7)
[2021-05-24 22:53] LABS: Partial Thromboplastin Time 23.9 SECONDS (22.3-36.8); Troponin I < 0.012 ng/mL (0.000-0.034)
[2021-05-24] MEDS: ACETAMINOPHEN 500 MG TABLET 1000 MG PO (23:56)
[2021-05-24 23:59] VITALS: BP 137/68; PULSE 80; RESP 18; O2SAT 95
[2021-05-25 00:26] VITALS: TEMP 36.1
--- NOTE | 2021-05-25 00:29 | PC.NURSE ---
Pt refuses repeat troponin and is wishing to be discharged. Dr. Tenorio made aware.
--- NOTE | 2021-05-25 00:46 | PC.NURSE ---
Narinder, ERP student at bedside discussing plan of care. Pt was requesting IV be taken out and be discharged, and IV removed cath intact. Pt now states she wants the lab to be drawn.
--- NOTE | 2021-05-25 01:57 | PC.NURSE ---
Call to lab regarding troponin result we'll probably releasing it shortly .
[2021-05-25 01:58] LABS: Troponin I < 0.012 ng/mL (0.000-0.034)
== END 2021-05-25 02:17 | disposition home or self-care (01) ==
PROVIDERS: Emergency Provider Emergency Medicine; PCP Internal Medicine
DX: R07.89 Other chest pain (principal); J44.9 Chronic obstructive pulmonary disease, unspecified; E11.9 Type 2 diabetes mellitus without complications; E78.5 Hyperlipidemia, unspecified; E03.9 Hypothyroidism, unspecified; M19.90 Unspecified osteoarthritis, unspecified site; I10 Essential (primary) hypertension; F32.A Depression, unspecified; Z87.01 Personal history of pneumonia (recurrent); Z85.51 Personal history of malignant neoplasm of bladder; Z98.49 Cataract extraction status, unspecified eye; Z96.1 Presence of intraocular lens; Z87.891 Personal history of nicotine dependence; R94.31 Abnormal electrocardiogram [ECG] [EKG]
CPT/HCPCS: 36415; 71046; 80048; 84484; 85025; 85380; 85610; 85730; 93005; 96360; 96372; 99284; A9270; J1885; J7030

== ENCOUNTER 2021-06-04 05:00 | Emergency (ER) | payer MEDICARE, SELFPAY ==
[2021-06-04] VITALS (8 sets, daily range): BP systolic 94–126; BP diastolic 56–81; PULSE 76–88; RESP 16–22; TEMP 36.8; O2SAT 96–100
--- NOTE | ~2021-06-04 | CT_ITS ---
EXAMINATION: CT brain wo con, CT cervical spine wo con EXAM DATE: 06/04/2021 06:08 INDICATION: Left-sided head injury, possible syncope. TECHNIQUE: Spiral CT of the head was performed without contrast. Axial, coronal and sagittal images were reviewed. Spiral CT of the cervical spine was performed without contrast. Axial images were rev iewed. Coronal and sagittal reformatted images were also reviewed. The dose-length product (DLP) fo r this examination was 605.33 (accession [id number]), 271.67 (accession [id number]) mGy-cm. The exposure was tailored according to patient size, and iterative reconstruction (ASIR) was used as additional dose reduction technique. Comparison is made to prior examination from 01/24/2020. FINDINGS: HEAD CT: There is no acute intraparenchymal hemorrhage. No evidence of intraparenchymal brain mass l esion. No evidence of acute infarction. There is mild periventricular and subcortical hypodensity, n onspecific but probably related to small vessel ischemic disease. There is mild prominence of the s ulci and ventricles related to cerebral atrophy. There is no mass effect or midline shift. There i s no obstructive hydrocephalus suspected. There are no extra-axial collections. There are no acute calvarial fractures. The orbits are unremarkable. Small left posterior scalp swelling. The visualiz ed sinuses and mastoid air cells are well aerated. CERVICAL CT: There is no evidence of acute cervical fracture. The odontoid process is intact. Pre- dens space is normal. Prevertebral soft tissue is normal. There are no soft tissue abnormalities id entified. There is no disc space widening or traumatic vertebral body subluxation suspected. Modera te to severe loss of the disc height at C5-6 and C6-7. There is 2-3 mm degenerative anterolisthesis C 4 on C5. Moderate cervical arthropathy. A detailed level by level evaluation of spondylosis can be a dded as addendum if requested. IMPRESSION: 1. No acute intracranial findings or cervical fracture. 2. Small posterior scalp swelling. 3. Cervical spondylosis. Reviewed, dictated and finalized at location D. TRONIC WIRER IMPRESSION: 1. No acute intracranial findings or cervical fracture. 2. Small posterior scalp swelling. 3. Cervical spondylosis.
--- NOTE | ~2021-06-04 | XR_ITS ---
EXAMINATION: XR wrist RT min 3V INDICATION: Right wrist pain TECHNIQUE: Three views of the right wrist are obtained. COMPARISON: 02/04/2020 FINDINGS: There is a subtle oblique lucency of the distal radius. There is soft tissue swelling of th e wrist. No dislocation or subluxation is identified. There is mild osteoarthritis at the first carpo metacarpal joint. IMPRESSION: 1. Subtle oblique lucency of the distal radius which could reflect a nondisplaced fracture. Reviewed, dictated and finalized at location A. TECHNICIAN IMPRESSION: 1. Subtle oblique lucency of the distal radius which could reflect a nondisplac ed fracture.
--- NOTE | ~2021-06-04 | XR_ITS ---
EXAMINATION: XR foot RT min 3V DATE: 06/04/2021 07:07 INDICATION: Right foot pain TECHNIQUE: Dorsoplantar, lateral, and 2 oblique views of the right foot were obtained. COMPARISON: 02/13/2015 FINDINGS: Bone alignment is normal. There is no fracture. There is mild osteoarthritis at the first m etatarsophalangeal joint and in multiple interphalangeal joints. Soft tissues are unremarkable. A lorna ntar calcaneal enthesophyte is noted. IMPRESSION: 1. No acute osseous abnormality. Reviewed, dictated and finalized at location A. E MAKER
--- NOTE | ~2021-06-04 | XR_ITS ---
EXAMINATION: XR hand LT min 3V INDICATION: Left hand pain TECHNIQUE: Three views of the left hand are obtained. COMPARISON: 02/04/2020 FINDINGS: There is no fracture, dislocation, or subluxation. Moderate osteoarthritis is noted at the first carpometacarpal joint and in multiple interphalangeal joints. The soft tissues are unremarkable . IMPRESSION: 1. No acute osseous abnormality. Reviewed, dictated and finalized at location A. COORDINATOR
--- NOTE | 2021-06-04 05:10 | PC.NURSE ---
Pt reports neck pain to ERP, C-collar applied.
--- NOTE | 2021-06-04 05:19 | ECG_ITS ---
Measurements Intervals [place] Rate: 82 P: 39 ME: 140 QRS: -6 QRSD: 84 T: 39 QT: 391 QTc: 457 Interpretive Statements SINUS RHYTHM VENTRICULAR PREMATURE COMPLEX BORDERLINE R WAVE PROGRESSION, ANTERIOR LEADS BASELINE ARTIFACT- I, II, III, AVR, AVL, V6 BORDERLINE ECG Electronically Signed On 06-04-2021 6:09:12 SOFTWARE QUALITY ASSURANCE ANALYST by Parish Del Valle D.O.
--- NOTE | 2021-06-04 05:45 | ED.GENADULT ---
HPI - General Adult General Chief complaint: Syncope Stated complaint: GLF Time Seen by Provider: 06/04/21 05:05 History of Present Illness HPI narrative: Patient 80-year-old female presents to emergency department with chief complaint of fall and possible syncope. Patient reports that earlier today she was sitting in a chair fell asleep and fell out of the chair. Patient states that she has pain in her right knee and right foot after that fall this evening she was at home was adjusting the sheets on her bed and was leaning forward and then proceeded to fall again. Patient states he is unsure if she passed out reports she has pain in her right wrist or left hand her neck and reports that she struck her head whenever she fell. Patient states she is not on blood thinners but was unsure whether she passed out. The patient reports that her right wrist is tender and hurts worse with movement. Related Data Home Medications Medication Instructions Recorded Confirmed lansoprazole 15 mg capsule,delayed 15 mg PO DAILY 04/24/19 05/03/21 release buspirone 5 mg tablet 5 mg PO TID 07/24/19 05/03/21 fluticasone propionate [Flonase 2 spray INTRANASAL Q12HR 01/24/20 05/03/21 Allergy Relief] sertraline 200 mg PO DAILY 01/24/20 05/03/21 Allergies Allergy/AdvReac Type Severity Reaction Status Date / Time cephalexin Allergy Unknown Unknown Verified 06/04/21 05:16 ciprofloxacin Allergy Unknown Unknown Verified 06/04/21 05:16 clindamycin Allergy Unknown Unknown Verified 06/04/21 05:16 influenza virus vaccine, Allergy Unknown Unknown Verified 06/04/21 05:16 specific Influenza Virus Vaccines Allergy Unknown Unknown Verified 06/04/21 05:16 levofloxacin Allergy Unknown Unknown Verified 06/04/21 05:16 Penicillins Allergy Unknown Unknown Verified 06/04/21 05:16 pneumococcal vaccine Allergy Unknown Unknown Verified 06/04/21 05:16 Sulfa (Sulfonamide Allergy Unknown Unknown Verified 06/04/21 05:16 Antibiotics) tetanus and diphtheria Allergy Unknown Unknown Verified 06/04/21 05:16 toxoids tetanus immune globulin Allergy Unknown Unknown Verified 06/04/21 05:16 Tetanus Vaccines and Toxoid Allergy Unknown Unknown Verified 06/04/21 05:16 metformin AdvReac Unknown Verified 06/04/21 05:16 Review of Systems Review of Systems: A 10 system review of systems was completed on the patient and is negative except for what is stated in the HPI. Nursing and ancillary documentation was reviewed. [facility] Past Medical History Medical History Bladder cancer Cataract Chronic pain Colitis COPD (chronic obstructive pulmonary disease) COPD with exacerbation Depression Hyperlipidemia Hypertension Hypothyroidism Osteoarthritis Pneumonia Seasonal allergies Type 2 diabetes mellitus Surgical History Surgical History History of cataract removal with insertion of prosthetic lens Family History Family History Mother Hypertension Patient's mother is Family history of thoracic aortic aneurysm Sibling Patient's sister is in good health Acute myocardial infarction Father Family history of diabetes mellitus in first degree relative Family history of malignant neoplasm of brain, Onset Age: 85 Malignant neoplasm of prostate Bone tumor Father Diabetes mellitus Social History Social History Smoking packs per day: 2 Smoking cigarettes per day: 40.0 Years smoked: 58 Smoking pack-years: 116.00 Smoking status: Former smoker Tobacco type: cigarettes Second hand tobacco smoke exposure: Yes Smoking end date: 03/19/19 Alcohol intake: never Substance use: never Substance use type: does not use Gender identity (if verbalized by the patient): Female Spiritual care concerns:
[2021-06-04 05:56] LABS: Basophils Absolute Auto 0.1 K/mm3 (0.0-0.1); Basophils Percent Auto 0.7 % (0.2-1.2); Eosinophils Absolute Auto 0.2 K/mm3 (0-0.3); Eosinophils Percent Auto 1.8 % (0-4.4); Hematocrit 42.3 % (37.0-47.0); Hemoglobin 14.1 g/dL (12.0-15.0); Immature Granulocyte Absolute 0.03 K/mm3 (0.00-0.031); Immature Granulocyte Percent A 0.3 % (0-0.5); Lymphocytes Absolute Auto 2.15 K/mm3 (0.9-3.2); Lymphocytes Percent Auto 23.7 % (18.3-44.2); Mean Corpuscular HGB Conc 33.3 g/dl (32-36); Mean Corpuscular Hemoglobin 31.2 pg (26-34); Mean Corpuscular Volume 93.6 fl (80-100); Mean Platelet Volume 9.8 fl (7.4-10.4); Monocytes Absolute Auto 1.1 K/mm3 (0.1-0.6); Monocytes Percent Auto 11.8 % (2.6-8.5); Neutrophils Absolute Auto 5.6 K/mm3 (1.3-6.7); Neutrophils Percent Auto 61.7 % (45.5-73.1); Platelet Count Result 183 k/mm3 (150-375); Red Blood Count 4.52 M/mm3 (4.2-5.4); Red Cell Distribution Width 13.6 % (11.5-14.5); White Blood Count 9.1 K/mm3 (4.5-10.0)
[2021-06-04 06:13] LABS: Lactic Acid Reflex 1.3 mmol/L (0.7-2.1); Partial Thromboplastin Time 20.8 SECONDS (22.3-36.8); Prothrombin Time 13.4 Seconds (11.1-14.7)
[2021-06-04 06:14] LABS: Alanine Aminotransferase 27 U/L (4-35); Albumin Level 4.3 g/dL (3.5-5.1); Alkaline Phosphatase 66 U/L (38-126); Anion Gap 8 mmol/L (8-16); Aspartate Amino Transferase 37 U/L (14-36); Bilirubin,Total 0.5 mg/dL (0.2-1.3); Blood Urea Nitrogen 30 mg/dL (7-17); Calcium 9.3 mg/dL (8.4-10.2); Carbon Dioxide 26 mmol/L (22-30); Chloride 101 mmol/L (98-107); Estimated CRCL calculation 55 ml/min; Estimated Glomerular Filt Rate > 60; Glucose 239 mg/dL (65-110); Magnesium 2.2 mg/dL (1.6-2.3); Potassium 4.5 mmol/L (3.4-5.0); Sodium 135 mmol/L (137-145)
[2021-06-04 06:26] LABS: Troponin I < 0.012 ng/mL (0.000-0.034)
[2021-06-04 07:38] LABS: Add Urine Microscopic? YES; Appearance Urine Clear (Clear); Bacteria Urine Trace /hpf; Bilirubin Urine Negative (Negative); Blood Urine Negative (Negative); Color Urine Yellow (Yellow); Glucose Urine UA 3+ mg/dL (Negative); Ketones Urine Trace mg/dL (Negative); Leukocyte Esterase Ur Negative LEU/UL (Negative); Mucus Urine Rare /lpf; Nitrate Urine Negative (Negative); Protein Urine Negative (Negative); RBC Urine 0-2 /hpf (0-2); Specific Grav Ur 1.039 (1.001-1.035); Squamous Epithelial Cell Urine Occasional /hpf (Few); Urobilinogen Urine Negative mg/dL (<2.0); WBC Urine 0-3 /hpf
[2021-06-04] MEDS: SODIUM CHLORIDE 0.9% IV 1,000 ML 999 ML IV CONT (08:37)
== END 2021-06-04 09:50 | disposition home or self-care (01) ==
PROVIDERS: Emergency Medicine; Emergency Provider General Practice; PCP Internal Medicine
DX: S52.501A Unspecified fracture of the lower end of right radius, initial encounter for closed fracture (principal); S09.90XA Unspecified injury of head, initial encounter; E86.0 Dehydration; M79.671 Pain in right foot; J44.9 Chronic obstructive pulmonary disease, unspecified; E78.5 Hyperlipidemia, unspecified; I10 Essential (primary) hypertension; E11.9 Type 2 diabetes mellitus without complications; E03.9 Hypothyroidism, unspecified; M19.90 Unspecified osteoarthritis, unspecified site; Z85.51 Personal history of malignant neoplasm of bladder; Z87.01 Personal history of pneumonia (recurrent); F32.A Depression, unspecified; Z96.1 Presence of intraocular lens; Z87.891 Personal history of nicotine dependence; Z98.49 Cataract extraction status, unspecified eye; I49.3 Ventricular premature depolarization; R94.31 Abnormal electrocardiogram [ECG] [EKG]; M47.812 Spondylosis without myelopathy or radiculopathy, cervical region; M79.672 Pain in left foot; Z79.84 Long term (current) use of oral hypoglycemic drugs; W07.XXXA Fall from chair, initial encounter
CPT/HCPCS: 29125; 36415; 70450; 72125; 73110; 73130; 73630; 80053; 81001; 83605; 83735; 84484; 85025; 85610; 85730; 93005; 96360; 99284; J7030; L0140

== ENCOUNTER 2021-07-20 11:43 | Outpatient (CLI) | payer MEDICARE, SELFPAY ==
[2021-07-20 12:36] LABS: Anion Gap 7 mmol/L (8-16); Blood Urea Nitrogen 19 mg/dL (7-17); Calcium 9.5 mg/dL (8.4-10.2); Carbon Dioxide 22 mmol/L (22-30); Chloride 108 mmol/L (98-107); Estimated Glomerular Filt Rate > 60; Glucose 224 mg/dL (65-110); Potassium 4.3 mmol/L (3.4-5.0); Sodium 137 mmol/L (137-145)
== END 2021-07-20 11:44 | disposition home or self-care (01) ==
LOC: ANHLAB 11:44
PROVIDERS: PCP Internal Medicine; Visit Provider Clinical Nurse Specialist
DX: E11.9 Type 2 diabetes mellitus without complications (principal); I10 Essential (primary) hypertension; R41.3 Other amnesia
CPT/HCPCS: 36415; 80048; 82607; 83036; 84443

== ENCOUNTER 2021-10-08 08:20 | Emergency (ER) | payer MEDICARE, SELFPAY ==
[2021-10-08] VITALS (12 sets, daily range): BP systolic 105–135; BP diastolic 58–81; PULSE 90–96; RESP 13–23; TEMP 36.9; O2SAT 93–99
--- NOTE | ~2021-10-08 | XR_ITS ---
EXAMINATION: XR chest 1V portable DATE: 10/08/2021 09:27 INDICATION: Shortness of breath. Wheezing. Cough. TECHNIQUE: A single frontal view of the chest was obtained. COMPARISON: Chest 2 views 05/24/2021, chest CT 01/24/2020 FINDINGS: Calcified left lung nodules are consistent with old granulomas disc disease. No pleural eff usion or pneumothorax. The heart size is normal. IMPRESSION: 1. No acute cardiopulmonary disease. Reviewed, dictated and finalized at location B.
--- NOTE | 2021-10-08 08:29 | PC.NURSE ---
Dr. Cameron at bedside to assess pt.
--- NOTE | 2021-10-08 08:31 | ED.GENADULT ---
HPI - General Adult General Chief complaint: Shortness of Breath/Dyspnea Stated complaint: difficulty breathing Time Seen by Provider: 10/08/21 08:23 Source: patient and EMS Mode of arrival: EMS Limitations: no limitations History of Present Illness HPI narrative: 80-year-old female history of COPD, pneumonia, hypertension, high cholesterol and diabetes presenting to the emergency department for evaluation of increased shortness of breath and cough over the past 5 days. Patient states for the past 5 days she has had increased cough and increased mucus production. Patient does use and a butyryl inhaler for wheeze. Patient states when she woke this morning that she had worsening shortness of breath and found that her albuterol inhaler was empty. Patient called EMS. EMS found the patient was 90% on room air at rest. Patient was treated with 125 mg IV Solu-Medrol and given a breathing treatment. This did help the patient's saturation and symptoms. Patient was satting at 94% on room air upon arrival to the ED. Patient denies any associated nausea vomiting or diarrhea. Patient denies any chest pain. Patient does report increased generalized fatigue and shortness of breath. Related Data Home Medications Medication Instructions Recorded Confirmed lansoprazole 15 mg capsule,delayed 15 mg PO DAILY 04/24/19 10/07/21 release sertraline 200 mg PO DAILY 01/24/20 10/07/21 aripiprazole 2 mg tablet 2 mg PO QHS 08/25/21 10/07/21 buspirone 5 mg tablet 10 mg PO TID tablet 08/25/21 10/07/21 memantine 5 mg tablet 5 mg PO BID 08/25/21 10/07/21 blood sugar diagnostic each 09/21/21 10/07/21 blood-glucose meter each 09/21/21 10/07/21 lancets 33 gauge ea 09/21/21 10/07/21 Allergies Allergy/AdvReac Type Severity Reaction Status Date / Time cephalexin Allergy Unknown Unknown Verified 10/07/21 11:30 ciprofloxacin Allergy Unknown Unknown Verified 10/07/21 11:30 clindamycin Allergy Unknown Unknown Verified 10/07/21 11:30 influenza virus vaccine, Allergy Unknown Unknown Verified 10/07/21 11:30 specific Influenza Virus Vaccines Allergy Unknown Unknown Verified 10/07/21 11:30 levofloxacin Allergy Unknown Unknown Verified 10/07/21 11:30 Penicillins Allergy Unknown Unknown Verified 10/07/21 11:30 pneumococcal vaccine Allergy Unknown Unknown Verified 10/07/21 11:30 Sulfa (Sulfonamide Allergy Unknown Unknown Verified 10/07/21 11:30 Antibiotics) tetanus and diphtheria Allergy Unknown Unknown Verified 10/07/21 11:30 toxoids tetanus immune globulin Allergy Unknown Unknown Verified 10/07/21 11:30 Tetanus Vaccines and Toxoid Allergy Unknown Unknown Verified 10/07/21 11:30 metformin AdvReac Unknown Verified 10/07/21 11:30 Review of Systems Review of Systems: CONSTITUTIONAL: See HPI EYES: Denies visual changes, redness, or discharge. ENT: Denies rhinorrhea, congestion, sore throat, or otalgia. CARDIOVASCULAR: Denies chest pain, palpitations, or edema. RESPIRATORY: See HPI GASTROINTESTINAL: Denies abdominal pain, nausea, vomiting, or diarrhea. GENITOURINARY: Denies dysuria or hematuria. SKIN: Denies rash or itching. MUSCULOSKELETAL: Denies back pain, joint pain, or myalgia. NEUROLOGIC: Denies headache, numbness, or weakness. COUNT INCLUDES THE [facility] Past Medical History Medical History Bladder cancer Broken wrist Right 06/04/2021 Cataract Chronic pain Colitis COPD (chronic obstructive pulmonary disease) COPD with exacerbation Depression Fractured hand Left 05/2021 Hyperlipidemia Hypertension Hypothyroidism Osteoarthritis Pneumonia Seasonal allergies Type 2 diabetes mellitus Surgical History Surgical History History of cataract removal with insertion of prosthetic lens Family History Family History Mother Hypertension Patient's mother is Family history of thoracic aortic ane
[2021-10-08 08:41] LABS: Basophils Absolute Auto 0.1 K/mm3 (0.0-0.1); Basophils Percent Auto 0.9 % (0.2-1.2); Eosinophils Absolute Auto 0.6 K/mm3 (0-0.3); Eosinophils Percent Auto 5.7 % (0-4.4); Hematocrit 45.4 % (37.0-47.0); Hemoglobin 14.5 g/dL (12.0-15.0); Immature Granulocyte Absolute 0.03 K/mm3 (0.00-0.031); Immature Granulocyte Percent A 0.3 % (0-0.5); Lymphocytes Absolute Auto 5.09 K/mm3 (0.9-3.2); Lymphocytes Percent Auto 45.7 % (18.3-44.2); Mean Corpuscular HGB Conc 31.9 g/dl (32-36); Mean Corpuscular Hemoglobin 29.9 pg (26-34); Mean Corpuscular Volume 93.6 fl (80-100); Monocytes Absolute Auto 1.1 K/mm3 (0.1-0.6); Monocytes Percent Auto 10.1 % (2.6-8.5); Neutrophils Absolute Auto 4.2 K/mm3 (1.3-6.7); Neutrophils Percent Auto 37.3 % (45.5-73.1); Platelet Count Result 182 k/mm3 (150-375); Red Blood Count 4.85 M/mm3 (4.2-5.4); Red Cell Distribution Width 13.6 % (11.5-14.5); White Blood Count 11.1 K/mm3 (4.5-10.0)
[2021-10-08] MEDS: ALBUTEROL SULFATE NEB 2.5 MG/0.5 ML INH 5 MG INHALATION (08:42)
[2021-10-08 08:56] LABS: Alanine Aminotransferase 21 U/L (4-35); Albumin Level 4.6 g/dL (3.5-5.1); Alkaline Phosphatase 65 U/L (38-126); Anion Gap 9 mmol/L (8-16); Aspartate Amino Transferase 22 U/L (14-36); Bilirubin,Total 0.4 mg/dL (0.2-1.3); Blood Urea Nitrogen 17 mg/dL (7-17); Calcium 9.3 mg/dL (8.4-10.2); Carbon Dioxide 25 mmol/L (22-30); Chloride 106 mmol/L (98-107); Estimated CRCL calculation 60 ml/min; Estimated Glomerular Filt Rate > 60; Glucose 253 mg/dL (65-110); Potassium 4.3 mmol/L (3.4-5.0); Sodium 140 mmol/L (137-145)
--- NOTE | 2021-10-08 08:59 | PC.NURSE ---
RT at bedside to administer breathing treatment.
--- NOTE | 2021-10-08 09:21 | ECG_ITS ---
Measurements Intervals [place] Rate: 90 P: 69 NE: 151 QRS: -5 QRSD: 74 T: 60 QT: 358 QTc: 439 Interpretive Statements SINUS RHYTHM POOR R-WAVE PROGRESSION NONSPECIFIC T-WAVE ABNORMALITY COMPARED TO ECG 06/04/2021 05:31:51 PVCS ARE NOT SEEN Electronically Signed On 10-08-2021 15:09:57 CDT by Amadou Patel M.D.
[2021-10-08 09:22] LABS: Influenza A QL RT-PCR Negative (Negative); Influenza B QL RT-PCR Negative (Negative); SARS-CoV-2 RNA PCR Negative
--- NOTE | 2021-10-08 10:55 | PC.NURSE ---
Patient ambulated in hallway with cytology technologist to assess oxygen saturation while ambulating. Dr. Cameron made aware of the results.
--- NOTE | 2021-10-08 11:11 | PC.NURSE ---
Dr. Cameron back at bedside to update patient on results and plan of care.
[2021-10-08] MEDS: AZITHROMYCIN 250 MG TABLET 500 MG PO (11:18)
== END 2021-10-08 11:32 | disposition home or self-care (01) ==
PROVIDERS: Emergency Provider Emergency Medicine; PCP Internal Medicine
DX: J44.1 Chronic obstructive pulmonary disease with (acute) exacerbation (principal); Z20.822 Contact with and (suspected) exposure to COVID-19; E11.9 Type 2 diabetes mellitus without complications; E78.5 Hyperlipidemia, unspecified; I10 Essential (primary) hypertension; E03.9 Hypothyroidism, unspecified; M19.90 Unspecified osteoarthritis, unspecified site; F32.A Depression, unspecified; Z87.01 Personal history of pneumonia (recurrent); Z85.51 Personal history of malignant neoplasm of bladder; Z98.49 Cataract extraction status, unspecified eye; Z96.1 Presence of intraocular lens; R94.31 Abnormal electrocardiogram [ECG] [EKG]; Z87.891 Personal history of nicotine dependence; Z79.84 Long term (current) use of oral hypoglycemic drugs
CPT/HCPCS: 36415; 71045; 80053; 85025; 87502; 93005; 94640; 99284; A9270; C9803; U0003; U0005

== ENCOUNTER → 2021-10-29 10:26 | Outpatient (CLI) | payer MEDICARE, SELFPAY ==
--- NOTE | ~2021-10-29 | XR_ITS ---
XR knee RT min 4V DATE: 10/29/2021 11:09 INDICATION: Right knee pain TECHNIQUE: 4 views including sunrise COMPARISON: None FINDINGS: Osteopenia. No fracture or dislocation or joint effusion is evident. No periosteal reaction or bone destruction. No radiopaque intra-articular loose body or chondrocalcinosis. Mild loss of height of medial joint space. IMPRESSION: No fracture or dislocation or joint effusion Osteopenia Reviewed, dictated and finalized at location B.
== END ==
PROVIDERS: PCP Internal Medicine; Visit Provider Internal Medicine Endocrinology, Diabetes & Metabolism
DX: M85.861 Other specified disorders of bone density and structure, right lower leg (principal)
CPT/HCPCS: 73564

== ENCOUNTER 2021-10-30 17:37 | Emergency (ER) | payer MEDICARE, SELFPAY ==
[2021-10-30 17:48] VITALS: BP 139/56; PULSE 77; RESP 18; TEMP 36; O2SAT 95
--- NOTE | 2021-10-30 19:17 | ED.LOWEXIN ---
HPI - Extremity Injury (Lower) General Chief Complaint: Extremity Injury, Lower Stated Complaint: RLE injury Time Seen by Provider: 10/30/21 18:40 Source: patient Mode of arrival: ambulatory History of Present Illness HPI Narrative: 81-year-old female presents today with complaints of right knee pain and right lower extremity swelling for approximately 2 weeks. Patient states she fell out of bed about 2 weeks ago and has had continued pain. Patient saw primary and x-ray was ordered for yesterday. X-ray of the knee shows no acute abnormalities. Right lower extremity bigger than left. Swelling noted to entire leg. Patient with calf tenderness and positive Homans' sign. Patient denies long trips, but does endorse a sedentary lifestyle at home. Patient denies chest pain, shortness of breath, palpitations, fevers, body aches, or chills. Related Data Home Medications Medication Instructions Recorded Confirmed lansoprazole 15 mg capsule,delayed 15 mg PO DAILY 04/24/19 10/28/21 release sertraline 200 mg PO DAILY 01/24/20 10/28/21 aripiprazole 2 mg tablet 2 mg PO QHS 08/25/21 10/28/21 buspirone 5 mg tablet 10 mg PO TID tablet 08/25/21 10/28/21 memantine 5 mg tablet 5 mg PO BID 08/25/21 10/28/21 blood sugar diagnostic each 09/21/21 10/28/21 blood-glucose meter each 09/21/21 10/28/21 lancets 33 gauge ea 09/21/21 10/28/21 Allergies Allergy/AdvReac Type Severity Reaction Status Date / Time cephalexin Allergy Unknown Unknown Verified 10/28/21 09:31 ciprofloxacin Allergy Unknown Unknown Verified 10/28/21 09:31 clindamycin Allergy Unknown Unknown Verified 10/28/21 09:31 influenza virus vaccine, Allergy Unknown Unknown Verified 10/28/21 09:31 specific Influenza Virus Vaccines Allergy Unknown Unknown Verified 10/28/21 09:31 levofloxacin Allergy Unknown Unknown Verified 10/28/21 09:31 Penicillins Allergy Unknown Unknown Verified 10/28/21 09:31 pneumococcal vaccine Allergy Unknown Unknown Verified 10/28/21 09:31 Sulfa (Sulfonamide Allergy Unknown Unknown Verified 10/28/21 09:31 Antibiotics) tetanus and diphtheria Allergy Unknown Unknown Verified 10/28/21 09:31 toxoids tetanus immune globulin Allergy Unknown Unknown Verified 10/28/21 09:31 Tetanus Vaccines and Toxoid Allergy Unknown Unknown Verified 10/28/21 09:31 metformin AdvReac Unknown Verified 10/28/21 09:31 Review of Systems Review of Systems: CONSTITUTIONAL: Denies fever, chills, or sweats. EYES: Denies visual changes, redness, or discharge. ENT: Denies rhinorrhea, congestion, sore throat, or otalgia. CARDIOVASCULAR: Denies chest pain, palpitations, or edema. RESPIRATORY: Denies cough or dyspnea. GASTROINTESTINAL: Denies abdominal pain, nausea, vomiting, or diarrhea. GENITOURINARY: Denies dysuria or hematuria. SKIN: Denies rash or itching. MUSCULOSKELETAL: Right knee pain with right leg swelling. Denies back pain, or myalgia. NEUROLOGIC: Denies headache, numbness, dizziness, or weakness. PSYCHIATRIC: Denies anxiety or depression. [facility] Past Medical History Medical History Bladder cancer Broken wrist Right 06/04/2021 Cataract Chronic pain Colitis COPD (chronic obstructive pulmonary disease) COPD with exacerbation Depression Fractured hand Left 05/2021 Hyperlipidemia Hypertension Hypothyroidism Osteoarthritis Pneumonia Seasonal allergies Type 2 diabetes mellitus Surgical History Surgical History History of cataract removal with insertion of prosthetic lens Family History Family History Mother Hypertension Patient's mother is Family history of thoracic aortic aneurysm Sibling Patient's sister is in good health Acute myocardial infarction TIA (transient ischemic attack) Father Family history of diabetes mellitus in first degree relative Family history of malignant neopla
[2021-10-30] MEDS: KETOROLAC 30 MG/ML VIAL (*BKC) IM (19:50)
[2021-10-30 19:59] LABS: Alanine Aminotransferase 18 U/L (6-35); Albumin Level 3.7 g/dL (3.5-5.1); Alkaline Phosphatase 61 U/L (38-126); Anion Gap 6 mmol/L (8-16); Aspartate Amino Transferase 25 U/L (14-36); Basophils Percent Auto 0.4 % (0.2-1.2); Bilirubin,Total 0.3 mg/dL (0.2-1.3); Blood Urea Nitrogen 20 mg/dL (7-17); Calcium 8.7 mg/dL (8.4-10.2); Carbon Dioxide 25 mmol/L (22-30); Chloride 108 mmol/L (98-107); Eosinophils Absolute Auto 0.2 K/mm3 (0-0.3); Eosinophils Percent Auto 1.9 % (0-4.4); Estimated CRCL calculation 64 ml/min; Estimated Glomerular Filt Rate > 60; Glucose 133 mg/dL (65-110); Hemoglobin 12.7 g/dL (12.0-15.0); Immature Granulocyte Absolute 0.03 K/mm3 (0.00-0.031); Immature Granulocyte Percent A 0.4 % (0-0.5); Lymphocytes Absolute Auto 2.48 K/mm3 (0.9-3.2); Lymphocytes Percent Auto 29.1 % (18.3-44.2); Mean Corpuscular HGB Conc 32.6 g/dl (32-36); Mean Corpuscular Hemoglobin 30.4 pg (26-34); Mean Corpuscular Volume 93.3 fl (80-100); Monocytes Absolute Auto 0.8 K/mm3 (0.1-0.6); Neutrophils Percent Auto 59.2 % (45.5-73.1); Platelet Count Result 162 k/mm3 (150-375); Potassium 4.4 mmol/L (3.4-5.0); Red Blood Count 4.18 M/mm3 (4.2-5.4); Red Cell Distribution Width 13.8 % (11.5-14.5); Sodium 139 mmol/L (137-145); White Blood Count 8.5 K/mm3 (4.5-10.0)
[2021-10-30 20:13] LABS: INR 1.1; Prothrombin Time 13.5 Seconds (11.1-14.7)
[2021-10-30 20:14] LABS: Partial Thromboplastin Time 25.5 SECONDS (22.3-36.8)
[2021-10-30] MEDS: traMADol HCL (*CRX) 50 MG TABLET 25 MG PO (21:35)
[2021-10-30 21:50] VITALS: RESP 18; O2SAT 97
[2021-10-30] MEDS: ENOXAPARIN 100 MG/ML SYRINGE SUB-Q (21:51)
== END 2021-10-30 21:50 | disposition home or self-care (01) ==
PROVIDERS: Emergency Provider Nurse Practitioner Family; PCP Internal Medicine
DX: M25.561 Pain in right knee (principal); M79.661 Pain in right lower leg; R60.0 Localized edema; J44.9 Chronic obstructive pulmonary disease, unspecified; E78.5 Hyperlipidemia, unspecified; I10 Essential (primary) hypertension; E11.9 Type 2 diabetes mellitus without complications; M19.90 Unspecified osteoarthritis, unspecified site; F32.A Depression, unspecified; Z85.51 Personal history of malignant neoplasm of bladder; Z87.01 Personal history of pneumonia (recurrent); Z98.49 Cataract extraction status, unspecified eye; Z96.1 Presence of intraocular lens; Z87.891 Personal history of nicotine dependence; Z79.84 Long term (current) use of oral hypoglycemic drugs
CPT/HCPCS: 36415; 80053; 85025; 85610; 85730; 96372; 99284; A9270; J1650; J1885

== ENCOUNTER 2021-10-31 07:10 | Outpatient (CLI) | payer MEDICARE, SELFPAY ==
--- NOTE | ~2021-10-31 | US_ITS ---
US venous doppler LE RT DATE: 10/31/2021 08:08 INDICATION: Right lower extremity swelling TECHNIQUE: Real-time imaging, color flow imaging and Doppler analysis of the right lower extremity ve ins COMPARISON: None FINDINGS: There is spontaneous and phasic flow and normal augmentation and color flow signal and norm al compression of the deep veins of the right lower extremity IMPRESSION: No evidence of deep venous thrombosis of right lower extremity Reviewed, dictated and finalized at Location [facility]. Reviewed, dictated and finalized at location A.
== END 2021-10-31 07:11 | disposition home or self-care (01) ==
PROVIDERS: PCP Internal Medicine; Visit Provider Internal Medicine
DX: M79.604 Pain in right leg (principal)
CPT/HCPCS: 93971

== ENCOUNTER 2021-11-30 07:20 | Outpatient (RCR) | payer MEDICARE, SELFPAY | END 2022-01-13 11:45 | disposition home or self-care (01) | LOC: ANHDMC 07:20 | PROVIDERS: PCP Internal Medicine; Visit Provider Internal Medicine Endocrinology, Diabetes & Metabolism | DX: E11.65 Type 2 diabetes mellitus with hyperglycemia (principal) | CPT/HCPCS: 99199 ==

== ENCOUNTER 2021-12-08 10:28 | Emergency (ER) | payer MEDICARE, SELFPAY ==
[2021-12-08] VITALS (25 sets, daily range): BP systolic 127–134; BP diastolic 57–89; PULSE 82–98; RESP 14–26; TEMP 36.6–37; O2SAT 92–97
--- NOTE | ~2021-12-08 | XR_ITS ---
EXAMINATION: XR chest 2V DATE: 12/08/2021 11:25 INDICATION: Shortness of breath TECHNIQUE: AP and lateral views of the chest are obtained. COMPARISON: 10/08/2021 FINDINGS: There are minimal airspace opacities of the right lower lobe. There is no pleural effusion or pneumothorax. The cardiomediastinal silhouette is normal. There is moderate thoracic spondylosis. IMPRESSION: 1. Right lower lobe airspace opacities, consistent with atelectasis versus pneumonia. Reviewed, dictated and finalized at location A. IMPRESSION: 1. Right lower lobe airspace opacities, consistent with atelectasis versus pneu monia.
--- NOTE | 2021-12-08 10:38 | ECG_ITS ---
Measurements Intervals [place] Rate: 90 P: 40 GA: 139 QRS: 6 QRSD: 86 T: 53 QT: 369 QTc: 452 Interpretive Statements SINUS RHYTHM BASELINE ARTIFACT PATTERN CONSISTENT WITH PULMONARY DISEASE BORDERLINE ECG COMPARED TO ECG 10/08/2021 08:25:10 NO SIGNIFICANT CHANGES Electronically Signed On 12-08-2021 14:52:59 CDT by Mateo John M.D.
--- NOTE | 2021-12-08 10:41 | ED.SOB ---
HPI - SOB/Dyspnea General Chief Complaint: Shortness of Breath/Dyspnea Stated Complaint: SOB Time Seen by Provider: 12/08/21 10:41 History of Present Illness HPI Narrative: Patient is an 81-year-old female with a history of type 2 diabetes, COPD, mild dementia, hypertension, presenting to the emergency department for evaluation of persistent cough. Patient has been diagnosed with pneumonia 3 times recently, has required inpatient admission also thought to be related to her chronic obstructive obstructive pulmonary disease. Patient follows with Dr. Chavez. Patient has had home oximetry recently which did not show any significant hypoxia that would require at home oxygen with nasal cannula. Patient states she continues with dry cough without hemoptysis. She denies fever, chills, times she does report significant wheezing and shortness of breath. Patient states that she was given a DuoNeb treatment in route by EMS which helped improve her wheezing. At the time of assessment, she denies any chest pain, nausea, vomiting, abdominal pain. She denies leg swelling or calf pain. She does report chronic right knee pain and per chart review does have a history of osteoarthritis. Related Data Home Medications Medication Instructions Recorded Confirmed lansoprazole 15 mg capsule,delayed 15 mg PO DAILY 04/24/19 11/19/21 release sertraline 100 mg tablet 200 mg PO DAILY 01/24/20 11/19/21 aripiprazole 2 mg tablet 2 mg PO QHS 08/25/21 11/19/21 buspirone 5 mg tablet 10 mg PO TID 08/25/21 11/19/21 memantine 5 mg tablet (Namenda) 5 mg PO BID 08/25/21 11/19/21 blood sugar diagnostic 09/21/21 11/19/21 blood-glucose meter 09/21/21 11/19/21 lancets 33 gauge (OneTouch Delica 09/21/21 11/19/21 Plus Lancet) pregabalin 50 mg capsule 50 mg PO QHS 11/11/21 11/19/21 Allergies Allergy/AdvReac Type Severity Reaction Status Date / Time cephalexin Allergy Unknown Unknown Verified 12/08/21 10:40 ciprofloxacin Allergy Unknown Unknown Verified 12/08/21 10:40 clindamycin Allergy Unknown Unknown Verified 12/08/21 10:40 influenza virus vaccine, Allergy Unknown Unknown Verified 12/08/21 10:40 specific Influenza Virus Vaccines Allergy Unknown Unknown Verified 12/08/21 10:40 levofloxacin Allergy Unknown Unknown Verified 12/08/21 10:40 Penicillins Allergy Unknown Unknown Verified 12/08/21 10:40 pneumococcal vaccine Allergy Unknown Unknown Verified 12/08/21 10:40 Sulfa (Sulfonamide Allergy Unknown Unknown Verified 12/08/21 10:40 Antibiotics) tetanus and diphtheria Allergy Unknown Unknown Verified 12/08/21 10:40 toxoids tetanus immune globulin Allergy Unknown Unknown Verified 12/08/21 10:40 Tetanus Vaccines and Toxoid Allergy Unknown Unknown Verified 12/08/21 10:40 metformin AdvReac Unknown Verified 12/08/21 10:40 Review of Systems Review of Systems: CONSTITUTIONAL: Denies fever, chills, or sweats. EYES: Denies visual changes, redness, or discharge. ENT: Denies rhinorrhea, congestion, sore throat, or otalgia. CARDIOVASCULAR: Denies chest pain, palpitations, or edema. RESPIRATORY: Reports cough, shortness of breath, wheezing GASTROINTESTINAL: Denies abdominal pain, nausea, vomiting, or diarrhea. GENITOURINARY: Denies dysuria or hematuria. SKIN: Denies rash or itching. MUSCULOSKELETAL: Denies back pain, reports chronic bilateral knee pain, right greater than left NEUROLOGIC: Denies headache, numbness, or weakness. [facility] Past Medical History Medical History Anxiety Bladder cancer Broken wrist Right 06/04/2021 Cataract Chronic pain Colitis COPD (chronic obstructive pulmonary disease) COPD with exacerbation Dementia Depression Fractured hand Left 05/2021 Hyperlipidemia Hypertension Hypothyroidism Osteoarthritis Pneumonia Seasonal allergies Type 2 diabetes mellitus Wears glasses Weight gain Surgical History Surgical History H
[2021-12-08 10:46] LABS: Basophils Absolute Auto 0.1 K/mm3 (0.0-0.1); Basophils Percent Auto 0.6 % (0.2-1.2); Eosinophils Absolute Auto 0.2 K/mm3 (0-0.3); Eosinophils Percent Auto 2.3 % (0-4.4); Hemoglobin 12.6 g/dL (12.0-15.0); Immature Granulocyte Absolute 0.06 K/mm3 (0.00-0.031); Immature Granulocyte Percent A 0.6 % (0-0.5); Lymphocytes Absolute Auto 3.25 K/mm3 (0.9-3.2); Lymphocytes Percent Auto 32.7 % (18.3-44.2); Mean Corpuscular HGB Conc 32.3 g/dl (32-36); Mean Corpuscular Hemoglobin 29.9 pg (26-34); Mean Corpuscular Volume 92.6 fl (80-100); Mean Platelet Volume 9.8 fl (7.4-10.4); Monocytes Absolute Auto 0.8 K/mm3 (0.1-0.6); Monocytes Percent Auto 7.6 % (2.6-8.5); Neutrophils Absolute Auto 5.6 K/mm3 (1.3-6.7); Neutrophils Percent Auto 56.2 % (45.5-73.1); Platelet Count Result 213 k/mm3 (150-375); Red Blood Count 4.21 M/mm3 (4.2-5.4); Red Cell Distribution Width 13.7 % (11.5-14.5); White Blood Count 9.9 K/mm3 (4.5-10.0)
[2021-12-08 10:55] LABS: Alanine Aminotransferase 15 U/L (6-35); Albumin Level 4.1 g/dL (3.5-5.1); Alkaline Phosphatase 78 U/L (38-126); Anion Gap 9 mmol/L (8-16); Aspartate Amino Transferase 17 U/L (14-36); Bilirubin,Total 0.2 mg/dL (0.2-1.3); Blood Urea Nitrogen 12 mg/dL (7-17); Calcium 8.9 mg/dL (8.4-10.2); Carbon Dioxide 24 mmol/L (22-30); Chloride 106 mmol/L (98-107); Estimated CRCL calculation 72 ml/min; Estimated Glomerular Filt Rate > 60; Glucose 249 mg/dL (65-110); Potassium 3.9 mmol/L (3.4-5.0); Sodium 139 mmol/L (137-145)
[2021-12-08 10:57] LABS: INR 1.1; Prothrombin Time 13.6 Seconds (11.1-14.7)
[2021-12-08 10:58] LABS: Partial Thromboplastin Time 29.3 SECONDS (22.3-36.8)
[2021-12-08] MEDS: methylPREDNISolone SOD SUCC 125 MG VIAL IV PUSH (11:02)
[2021-12-08] MEDS: SODIUM CHLORIDE 0.9% IV 500 ML 999 ML IV CONT (11:02)
[2021-12-08 11:11] LABS: Base Excess ABG -0.5 mEq/l (+/-2.0); Carboxyhemoglobin 0.8 % THb (0-2.0); Fractional Inspired Oxygen 28 %; HCO3 ABG 23.7 mEq/l (22.0-26.0); Methemoglobin ABG 0.3 %THb (0-1.5); Oxygen Content ABG 17.6 %vol (16.0-22.0); Oxygen Saturation ABG 95.9 % (95.0-100.0); Oxyhemoglobin 94.4 % THb (90.0-100.0); PCO2 ABG 37.5 mmHg (35.0-45.0); PO2 ABG 78.4 mmHg (80.0-100.0); Reduced Hemoglobin 4.5 %THb (0-5.0); Total Hemoglobin 13.2 g/dL (12.0-18.0); pH ABG 7.419 (7.350-7.450)
[2021-12-08 11:13] LABS: Device NASAL CANNULA; Modified Allen's Test Pass; Site Drawn RIGHT RADIAL
== END 2021-12-08 14:57 | disposition home or self-care (01) ==
PROVIDERS: Emergency Provider Emergency Medicine; PCP Internal Medicine
DX: J44.1 Chronic obstructive pulmonary disease with (acute) exacerbation (principal); F41.9 Anxiety disorder, unspecified; F03.90 Unspecified dementia, unspecified severity, without behavioral disturbance, psychotic disturbance, mood disturbance, and anxiety; F32.9 Major depressive disorder, single episode, unspecified; I10 Essential (primary) hypertension; E03.9 Hypothyroidism, unspecified; M19.90 Unspecified osteoarthritis, unspecified site; E11.9 Type 2 diabetes mellitus without complications
CPT/HCPCS: 36415; 36600; 71046; 80053; 82375; 82805; 83050; 85025; 85610; 85730; 93005; 96361; 96365; 96366; 96375; 99284; J2930; J3370; J7040

== ENCOUNTER 2022-02-25 10:42 | Observation (INO) | payer MEDICARE, SELFPAY ==
[2022-02-25] VITALS (30 sets, daily range): BP systolic 101–137; BP diastolic 53–86; PULSE 83–114; RESP 14–22; TEMP 36.3–36.8; O2SAT 94–99; BMI 35.4
--- NOTE | ~2022-02-25 | XR_ITS ---
EXAMINATION: XR chest 1V portable INDICATION: Cough and shortness of breath TECHNIQUE: Portable AP chest at 1145 hours COMPARISON: 12/08/2021 FINDINGS: There are patchy airspace opacities of the lung bases. No pleural effusion or pneumothorax. The cardiomediastinal silhouette is normal. IMPRESSION: 1. Patchy airspace opacities of the lung bases, consistent with atelectasis versus pneumonia. Reviewed, dictated and finalized at location B. IMPRESSION: 1. Patchy airspace opacities of the lung bases, consistent with atelectasis gallo sana pneumonia.
--- NOTE | 2022-02-25 10:52 | ECG_ITS ---
Measurements Intervals [place] Rate: 93 P: 56 [place]: 135 QRS: -28 QRSD: 105 T: 51 QT: 377 QTc: 470 Interpretive Statements SINUS RHYTHM BORDERLINE R WAVE PROGRESSION, ANTERIOR LEADS BORDERLINE ECG COMPARED TO ECG 12/08/2021 10:45:50 NO SIGNIFICANT CHANGES Electronically Signed On 02-25-2022 12:38:38 CDT by Parish Del Valle D.O.
--- NOTE | 2022-02-25 10:54 | ED.GENADULT ---
HPI - General Adult General Chief complaint: Shortness of Breath/Dyspnea Stated complaint: SOB Time Seen by Provider: 02/25/22 10:45 History of Present Illness HPI narrative: 81-year-old female with history of COPD diabetes presenting the emergency department for evaluation of worsening shortness of breath. Patient states that the symptoms started last night. Patient did attempt to use her home nebulizers but patient had no improvement. Worsening symptoms patient called EMS. Patient was treated with a nebulizer in route. Upon arrival to the emergency department patient was saturating at 95 to 96% on room air. Patient does have a prior history of smoking but denies any current smoking. Patient states she is not currently on steroids or taking any antibiotics. Patient denies any chest pain denies any prior history of [place]. Related Data Home Medications Medication Instructions Recorded Confirmed lansoprazole 15 mg capsule,delayed 15 mg PO DAILY 04/24/19 01/11/22 release sertraline 100 mg tablet 200 mg PO DAILY 01/24/20 01/11/22 aripiprazole 2 mg tablet 2 mg PO QHS 08/25/21 01/11/22 buspirone 5 mg tablet 10 mg PO TID 08/25/21 01/11/22 memantine 5 mg tablet (Namenda) 5 mg PO BID 08/25/21 01/11/22 blood sugar diagnostic 09/21/21 01/11/22 blood-glucose meter 09/21/21 01/11/22 lancets 33 gauge (OneTouch Delica 09/21/21 01/11/22 Plus Lancet) Allergies Allergy/AdvReac Type Severity Reaction Status Date / Time cephalexin Allergy Unknown Unknown Verified 01/11/22 11:08 ciprofloxacin Allergy Unknown Unknown Verified 01/11/22 11:08 clindamycin Allergy Unknown Unknown Verified 01/11/22 11:08 influenza virus vaccine, Allergy Unknown Unknown Verified 01/11/22 11:08 specific Influenza Virus Vaccines Allergy Unknown Unknown Verified 01/11/22 11:08 levofloxacin Allergy Unknown Unknown Verified 01/11/22 11:08 Penicillins Allergy Unknown Unknown Verified 01/11/22 11:08 pneumococcal vaccine Allergy Unknown Unknown Verified 01/11/22 11:08 Sulfa (Sulfonamide Allergy Unknown Unknown Verified 01/11/22 11:08 Antibiotics) tetanus and diphtheria Allergy Unknown Unknown Verified 01/11/22 11:08 toxoids tetanus immune globulin Allergy Unknown Unknown Verified 01/11/22 11:08 Tetanus Vaccines and Toxoid Allergy Unknown Unknown Verified 01/11/22 11:08 metformin AdvReac Unknown Verified 01/11/22 11:08 Review of Systems Review of Systems: CONSTITUTIONAL: Denies fever, chills, or sweats. EYES: Denies visual changes, redness, or discharge. ENT: Denies rhinorrhea, congestion, sore throat, or otalgia. CARDIOVASCULAR: Denies chest pain, palpitations, or edema. RESPIRATORY: See HPI GASTROINTESTINAL: Denies abdominal pain, nausea, vomiting, or diarrhea. GENITOURINARY: Denies dysuria or hematuria. SKIN: Denies rash or itching. MUSCULOSKELETAL: Denies back pain, joint pain, or myalgia. NEUROLOGIC: Denies headache, numbness, or weakness. [facility] Past Medical History Medical History Anxiety Bladder cancer Broken wrist Right 06/04/2021 Cataract Chronic pain Colitis COPD (chronic obstructive pulmonary disease) COPD with exacerbation Dementia Depression Fractured hand Left 05/2021 Hyperlipidemia Hypertension Hypothyroidism Osteoarthritis Pneumonia Seasonal allergies Type 2 diabetes mellitus Wears glasses Weight gain Surgical History Surgical History History of bladder surgery History of cataract removal with insertion of prosthetic lens Family History Family History Mother Hypertension Patient's mother is Family history of thoracic aortic aneurysm Sibling Patient's sister is in good health Acute myocardial infarction TIA (transient ischemic attack) Father Family history of diabetes mellitus in first degree relative Family history of mal
[2022-02-25] MEDS: IPRATROPIUM BR 0.02% INH SOLN 0.5 MG/2.5 ML VIAL 1 MG INHALATION (11:03)
[2022-02-25] MEDS: ALBUTEROL SULFATE NEB 2.5 MG/3 ML INH 5 MG INHALATION ×2 (11:03→21:30)
[2022-02-25] MEDS: methylPREDNISolone SOD SUCC 125 MG VIAL IV PUSH (11:17)
[2022-02-25 12:26] LABS: SARS-CoV-2 RNA PCR Negative
[2022-02-25 13:28] LABS: Basophils Absolute Auto 0.1 K/mm3 (0.0-0.1); Basophils Percent Auto 0.6 % (0.2-1.2); Eosinophils Absolute Auto 0.1 K/mm3 (0-0.3); Eosinophils Percent Auto 1.6 % (0-4.4); Hematocrit 42.2 % (37.0-47.0); Hemoglobin 13.4 g/dL (12.0-15.0); Immature Granulocyte Absolute 0.04 K/mm3 (0.00-0.031); Immature Granulocyte Percent A 0.5 % (0-0.5); Mean Corpuscular HGB Conc 31.8 g/dl (32-36); Mean Corpuscular Hemoglobin 29.4 pg (26-34); Mean Corpuscular Volume 92.5 fl (80-100); Mean Platelet Volume 9.9 fl (7.4-10.4); Monocytes Absolute Auto 0.3 K/mm3 (0.1-0.6); Monocytes Percent Auto 3.5 % (2.6-8.5); Neutrophils Absolute Auto 6.8 K/mm3 (1.3-6.7); Neutrophils Percent Auto 82.8 % (45.5-73.1); Platelet Count Result 185 k/mm3 (150-375); Red Blood Count 4.56 M/mm3 (4.2-5.4); Red Cell Distribution Width 13.8 % (11.5-14.5); White Blood Count 8.2 K/mm3 (4.5-10.0)
[2022-02-25 13:33] LABS: Alanine Aminotransferase 20 U/L (6-35); Albumin Level 4.3 g/dL (3.5-5.1); Alkaline Phosphatase 77 U/L (38-126); Anion Gap 13 mmol/L (8-16); Aspartate Amino Transferase 22 U/L (14-36); Bilirubin,Total 0.4 mg/dL (0.2-1.3); Blood Urea Nitrogen 18 mg/dL (7-17); Calcium 8.9 mg/dL (8.4-10.2); Carbon Dioxide 23 mmol/L (22-30); Chloride 103 mmol/L (98-107); Estimated CRCL calculation 59 ml/min; Estimated Glomerular Filt Rate > 60; Glucose 334 mg/dL (65-110); Potassium 4.2 mmol/L (3.4-5.0); Sodium 139 mmol/L (137-145)
--- NOTE | 2022-02-25 17:30 | PM.IMHP ---
H&P: HPI History of Present Illness Date/Time: 02/25/22 17:30 Chief Complaint: Shortness of breath. Narrative: This is an 81-year-old female with COPD, type 2 diabetes mellitus, hypertension, dementia, depression, and anxiety presented to the emergency department via EMS from home for evaluation of shortness of breath. She has chronic dyspnea on exertion however the past 4 to 5 days she has had increasing shortness of breath from baseline. Despite using her inhalers and nebulizer she continues to have pretty significant wheezing as well as a cough which has been productive of clear phlegm. She slept poorly last night due to shortness of breath and this morning she felt as though she could hardly breath despite using nebulizers x2 and she called 911. On EMS arrival her SpO2 was 90% on room air and on arrival to the emergency department she was given a stat nebulizer and Solu-Medrol 125 mg x 1. While she does feel a bit better she still feels quite short of breath and is frequently coughing and wheezing and she is being admitted for further treatment. She denies fever, chills, sweats, sinus congestion, sore throat, chest pain, pleuritic pain, palpitations, dysphagia, concerns for aspiration, nausea, vomiting, and diarrhea. Review of Systems Review of Systems: Twelve systems were reviewed. She has not been on steroids or antibiotics for quite some time. She is always hesitant to take steroids as it causes her sugar to go up quite a bit. She denies blurry vision, polydipsia, and polyuria. Except as documented, all other systems were reviewed and are negative. [facility] Past Medical History Medical History (Updated 02/25/22 @ 22:28 by Sandy Thompson PA-C) Anxiety Bladder cancer Chronic obstructive pulmonary disease Dementia Depression Hyperlipidemia Hypertension Hypothyroidism Osteoarthritis Seasonal allergies Type 2 diabetes mellitus Surgical History Surgical History (Updated 02/25/22 @ 22:20 by Sandy Thompson PA-C) History of bladder surgery (06/17/14) Transurethral resection of bladder tumor which showed noninvasive low-grade papillary urothelial carcinoma. History of cataract removal with insertion of prosthetic lens Family History Family History Mother Hypertension Patient's mother is Family history of thoracic aortic aneurysm Sibling Patient's sister is in good health Acute myocardial infarction TIA (transient ischemic attack) Father Family history of diabetes mellitus in first degree relative Family history of malignant neoplasm of brain, Onset Age: 85 Malignant neoplasm of prostate Bone tumor Father Diabetes mellitus Other Arthritis Brain cancer Social History Social History (Updated 02/25/22 @ 22:20 by Sandy Thompson PA-C) Social History: Surrogate medical decision maker: Kristine Code status: Full code. Smoking packs per day: 2 Smoking cigarettes per day: 40.0 Years smoked: 58 Smoking pack-years: 116.00 Smoking status: Former smoker Tobacco type: cigarettes Second hand tobacco smoke exposure: Yes Smoking end date: 03/19/19 Alcohol intake: never Substance use: never Substance use type: does not use Additional living arrangements comments: The patient lives in her own home in [place] with her 2 cats. Spiritual care concerns: No Agree to blood products: Yes Meds Home Medications and Allergies Home Medications Medication Instructions Recorded Confirmed Type lansoprazole 15 mg capsule,delayed 15 mg PO DAILY PRN Abdominal 04/24/19 02/25/22 History release Discomfort nebulizer and compressor (Home #1 ea 05/14/19 02/25/22 Rx Nebulizer Plus Sidestream) sertraline 100 mg tablet 200 mg PO DAILY 01/24/20 02/25/22 History aripiprazole 2 mg tablet 2 mg PO QHS 08/25/21 02/25/22 History buspirone 5 mg tablet 10 mg PO TID 08/25/21 02/25/22 History memantine 5 mg tablet (N
[2022-02-25 21:31] LABS: Glucose Point of Care 426 mg/dl (65-105)
[2022-02-25] MEDS: AZITHROMYCIN 250 MG TABLET 500 MG PO (23:03)
[2022-02-25] MEDS: ARIPiprazole 2 MG TABLET PO (23:04)
[2022-02-25] MEDS: PREGABALIN (*CRX) 50 MG CAPSULE PO (23:07)
[2022-02-25] MEDS: INSULIN ASPART (*BKC) 100 UNITS/ML 10 UNITS SUB-Q (23:30)
[2022-02-26] VITALS (14 sets, daily range): BP systolic 127–142; BP diastolic 73–87; PULSE 70–107; RESP 16–20; TEMP 36.5–36.7; O2SAT 94–96
[2022-02-26] MEDS: ALBUTEROL SULFATE (*SP) AEROSOL 1 PUFF 2 PUFF INHALATION (01:02)
[2022-02-26] MEDS: traMADol HCL (*CRX) 50 MG TABLET PO ×2 (01:04→21:03)
[2022-02-26 01:16] LABS: Glucose Point of Care 363 mg/dl (65-105)
[2022-02-26] MEDS: INSULIN ASPART (*BKC) 100 UNITS/ML 6 UNITS SUB-Q (02:17)
[2022-02-26] MEDS: IPRATROPIUM BR 0.02% INH SOLN 0.5 MG/2.5 ML VIAL INHALATION ×4 (02:33→20:12)
[2022-02-26] MEDS: ALBUTEROL SULFATE NEB 2.5 MG/3 ML INH 5 MG INHALATION ×4 (02:33→20:11)
[2022-02-26 04:28] LABS: Glucose Point of Care 212 mg/dl (65-105)
[2022-02-26 05:52] LABS: Hematocrit 37.5 % (37.0-47.0); Hemoglobin 12.3 g/dL (12.0-15.0); Mean Corpuscular HGB Conc 32.8 g/dl (32-36); Mean Corpuscular Hemoglobin 29.4 pg (26-34); Mean Corpuscular Volume 89.7 fl (80-100); Mean Platelet Volume 9.9 fl (7.4-10.4); Platelet Count Result 204 k/mm3 (150-375); Red Blood Count 4.18 M/mm3 (4.2-5.4); Red Cell Distribution Width 13.6 % (11.5-14.5); White Blood Count 10.7 K/mm3 (4.5-10.0)
[2022-02-26 05:55] LABS: Hemoglobin A1C 8.7 % (<5.7)
[2022-02-26 06:04] LABS: Anion Gap 12 mmol/L (8-16); Blood Urea Nitrogen 25 mg/dL (7-17); Calcium 8.8 mg/dL (8.4-10.2); Carbon Dioxide 21 mmol/L (22-30); Chloride 100 mmol/L (98-107); Estimated CRCL calculation 69 ml/min; Estimated Glomerular Filt Rate > 60; Glucose 189 mg/dL (65-110); Magnesium 2.1 mg/dL (1.6-2.3); Potassium 4.2 mmol/L (3.4-5.0); Sodium 133 mmol/L (137-145)
[2022-02-26] MEDS: FLUTICASONE/UMECLIDIN/VILANTER 100-62.5-25 MCG ELLIPTA 1 PUFF INHALATION (08:20)
[2022-02-26 08:38] LABS: Glucose Point of Care 170 mg/dl (65-105)
[2022-02-26] MEDS: busPIRone HCL 5 MG TABLET 10 MG PO ×3 (08:55→17:47)
[2022-02-26] MEDS: AZELASTINE HCL NASAL 0.1% 137 MCG/SPR 30 ML BTL 1 SPRAY NASAL ×2 (08:55→21:04)
[2022-02-26] MEDS: MEMANTINE 5 MG TABLET PO ×2 (08:55→21:04)
[2022-02-26] MEDS: ATORVASTATIN 10 MG TABLET PO (08:55)
[2022-02-26] MEDS: AZITHROMYCIN 250 MG TABLET PO (08:55)
[2022-02-26] MEDS: predniSONE 20 MG TABLET 40 MG PO (08:55)
[2022-02-26] MEDS: CANAGLIFLOZIN 100 MG TABLET 300 MG PO (08:56)
[2022-02-26] MEDS: ENOXAPARIN 40 MG/0.4 ML SYRINGE SUB-Q (08:56)
[2022-02-26] MEDS: NEBIVOLOL HCL 5 MG TABLET 10 MG PO (08:56)
[2022-02-26] MEDS: SERTRALINE HCL 50 MG TABLET 200 MG PO (08:58)
[2022-02-26] MEDS: glipiZIDE 5 MG TABLET 10 MG PO (08:58)
[2022-02-26] MEDS: MELOXICAM 7.5 MG TABLET PO (08:58)
--- NOTE | 2022-02-26 11:24 | PM.IMPN ---
Progress Note: A&P Assessment and Plan (1) Acute exacerbation of chronic obstructive pulmonary disease (COPD): Code(s): J44.1 - Chronic obstructive pulmonary disease with (acute) exacerbation Status: Acute Assessment and Plan: Patient admitted with increasing shortness of breath, hypoxia requiring 2L O2, and wheezing on physical exam. Chest x-ray with bilateral patchy airspace opacities concerning for atelectasis versus pneumonia. No leukocytosis or fever. Continue prednisone 40 mg PO daily x 5 days, duonebs Q6 hours scheduled Add mucinex BID Started on Trelegy inhaler daily Empiric Azithromycin PO x 5 days started 02/25/22 (2) Hypoxia: Code(s): R09.02 - Hypoxemia Status: Acute Assessment and Plan: As above. Wean O2 as tolerated. Patient may need home O2 eval prior to discharge if unable to wean. (3) Type 2 diabetes mellitus with hyperglycemia: Qualifiers: Diabetes mellitus adjunct faculty for medical terminology insulin use: without adjunct faculty for medical terminology use Qualified Code(s): E11.65 - Type 2 diabetes mellitus with hyperglycemia Code(s): E11.65 - Type 2 diabetes mellitus with hyperglycemia Status: Acute Assessment and Plan: Blood glucose 332 on admission. A1c 8.7% Accu-checks AC/HS, aspart moderate dose sliding scale insulin with hypoglycemia protocol Continue glipizide, Invokana, and Januvia at home doses. Continue pregabalin at HS Consistent carb diet. (4) Hypertension: Qualifiers: Hypertension type: essential hypertension Qualified Code(s): I10 - Essential (primary) hypertension Code(s): I10 - Essential (primary) hypertension Status: Chronic Assessment and Plan: Chronic, blood pressures reviewed and stable. Nebivolol at home dose (5) Depression: Qualifiers: Depression Type: major depressive disorder Major depression recurrence: unspecified whether recurrent Active/Remission status: in remission of unspecified degree Qualified Code(s): F32.5 - Major depressive disorder, single episode, in full remission Code(s): F32.9 - Major depressive disorder, single episode, unspecified Status: Chronic Assessment and Plan: Chronic, with anxiety, in remission. Mood assessed. Continue Abilify, buspirone, and sertraline Plan CODE STATUS: FULL CODE Disposition: Home when stable. Time Spent With Patient Time with patient: 15 - 25 minutes Subjective Date/time seen: 02/26/22 11:24 Patient is an?81-year-old female with COPD, type 2 diabetes mellitus, hypertension, dementia, depression, and anxiety presented to the emergency department via EMS from home for evaluation of shortness of breath. Admitted for acute COPD exacerbation. Patient is sitting up in the bed. She reports persistent SOB and cough. Her sputum is thick and white. No chest pain, fever, chills or diaphoresis. Review of Systems Review of Systems: All systems reviewed & are unremarkable except as noted in HPI and below Exam Narrative: General: no acute distress. Non-toxic appearing. HEENT: Normocephalic. PERRL, EOM intact. Sclera anicteric. Moist mucous membranes. Tongue midline. Neck: Supple. No lymphadenopathy or jugular venous distention. Respiratory: Respirations are nonlabored and she is speaking in full sentences. Lung sounds are diminished throughout with prolonged expiratory phase. Speaking in full sentences. Cardiovascular: Regular rate and rhythm with S1-S2. No murmur, gallop or rubs. Gastrointestinal: Abdomen soft, round, mildly tender to palpation epigastric region, normoactive bowel sounds. Skin: Warm and dry. No rash or lesions on limited exam. Fair turgor. Extremities: No cyanosis, clubbing, or edema. Radial and pedal pulses intact. Neurological: Alert. Oriented x4. Cranial nerves 2-12 are grossly intact. No focal deficits. Psychiatric: Pleasant and cooperative. Appropriate mood, odd affect. [place]
[2022-02-26 12:08] LABS: Glucose Point of Care 225 mg/dl (65-105)
[2022-02-26] MEDS: INSULIN ASPART (*BKC) 100 UNITS/ML SUB-Q ×2 (12:24→17:46)
[2022-02-26] MEDS: guaiFENesin 12 HR 600 MG TABCR PO ×2 (12:27→21:04)
[2022-02-26 17:34] LABS: Glucose Point of Care 316 mg/dl (65-105)
[2022-02-26] MEDS: PRAMIPEXOLE 0.25 MG TABLET PO (17:47)
[2022-02-26 20:42] LABS: Glucose Point of Care 274 mg/dl (65-105)
[2022-02-26] MEDS: ARIPiprazole 2 MG TABLET PO (21:03)
[2022-02-26] MEDS: PREGABALIN (*CRX) 50 MG CAPSULE PO (21:04)
[2022-02-27] MEDS: ALBUTEROL SULFATE NEB 2.5 MG/3 ML INH 5 MG INHALATION (02:37)
[2022-02-27 02:38] VITALS: PULSE 78; RESP 16
[2022-02-27] MEDS: IPRATROPIUM BR 0.02% INH SOLN 0.5 MG/2.5 ML VIAL INHALATION ×2 (02:38→07:37)
[2022-02-27 02:45] VITALS: PULSE 76; RESP 16
[2022-02-27 06:00] VITALS: BP 131/53; PULSE 84; RESP 20; TEMP 36.6; O2SAT 93
[2022-02-27 06:12] LABS: Hematocrit 38.3 % (37.0-47.0); Hemoglobin 12.2 g/dL (12.0-15.0); Mean Corpuscular HGB Conc 31.9 g/dl (32-36); Mean Corpuscular Hemoglobin 29.5 pg (26-34); Mean Corpuscular Volume 92.7 fl (80-100); Mean Platelet Volume 10.1 fl (7.4-10.4); Platelet Count Result 182 k/mm3 (150-375); Red Blood Count 4.13 M/mm3 (4.2-5.4); Red Cell Distribution Width 13.9 % (11.5-14.5); White Blood Count 8.6 K/mm3 (4.5-10.0)
[2022-02-27 06:28] LABS: Anion Gap 11 mmol/L (8-16); Blood Urea Nitrogen 22 mg/dL (7-17); Calcium 8.4 mg/dL (8.4-10.2); Carbon Dioxide 23 mmol/L (22-30); Chloride 105 mmol/L (98-107); Estimated CRCL calculation 69 ml/min; Estimated Glomerular Filt Rate > 60; Glucose 157 mg/dL (65-110); Sodium 139 mmol/L (137-145)
[2022-02-27 07:38] VITALS: PULSE 75; RESP 16
[2022-02-27] MEDS: ALBUTEROL SULFATE NEB 2.5 MG/0.5 ML INH (07:38)
[2022-02-27] MEDS: FLUTICASONE/UMECLIDIN/VILANTER 100-62.5-25 MCG ELLIPTA 1 PUFF INHALATION (07:42)
[2022-02-27] MEDS: CANAGLIFLOZIN 100 MG TABLET 300 MG PO (08:02)
[2022-02-27 08:03] LABS: Glucose Point of Care 132 mg/dl (65-105)
[2022-02-27] MEDS: predniSONE 20 MG TABLET 40 MG PO (08:03)
[2022-02-27] MEDS: MELOXICAM 7.5 MG TABLET PO (08:03)
[2022-02-27] MEDS: glipiZIDE 5 MG TABLET 10 MG PO (08:03)
[2022-02-27] MEDS: AZITHROMYCIN 250 MG TABLET PO (08:04)
[2022-02-27] MEDS: AZELASTINE HCL NASAL 0.1% 137 MCG/SPR 30 ML BTL 1 SPRAY NASAL (08:04)
[2022-02-27] MEDS: ATORVASTATIN 10 MG TABLET PO (08:04)
[2022-02-27] MEDS: busPIRone HCL 5 MG TABLET 10 MG PO (08:05)
[2022-02-27] MEDS: ENOXAPARIN 40 MG/0.4 ML SYRINGE SUB-Q (08:05)
[2022-02-27] MEDS: MEMANTINE 5 MG TABLET PO (08:06)
[2022-02-27] MEDS: guaiFENesin 12 HR 600 MG TABCR PO (08:06)
[2022-02-27 08:07] VITALS: PULSE 86
[2022-02-27] MEDS: NEBIVOLOL HCL 5 MG TABLET 10 MG PO (08:07)
[2022-02-27] MEDS: SERTRALINE HCL 50 MG TABLET 200 MG PO (08:08)
--- NOTE | 2022-02-27 09:47 | PM.DS ---
DS: Admitting Diagnosis Discharge Date 02/27/2022 0947 Admitting Diagnosis Hypoxia Acute COPD exacerbation Abnormal chest x-ray DS: Discharge Diagnosis Discharge Diagnosis (1) Acute exacerbation of chronic obstructive pulmonary disease (COPD): Code(s): J44.1 - Chronic obstructive pulmonary disease with (acute) exacerbation Status: Acute Assessment and Plan: Patient admitted with increasing shortness of breath, hypoxia requiring 2L O2, and wheezing on physical exam. Chest x-ray with bilateral patchy airspace opacities concerning for atelectasis versus pneumonia. No leukocytosis or fever. Continue prednisone 40 mg PO daily x 5 days, duonebs Q6 hours scheduled mucinex BID Trelegy inhaler daily Empiric Azithromycin PO x 5 days started 02/25/22 (2) Hypoxia: Code(s): R09.02 - Hypoxemia Status: Acute Assessment and Plan: As above. Weaned O2 to room air. (3) Type 2 diabetes mellitus with hyperglycemia: Qualifiers: Diabetes mellitus intermediate accountant insulin use: without group home use Qualified Code(s): E11.65 - Type 2 diabetes mellitus with hyperglycemia Code(s): E11.65 - Type 2 diabetes mellitus with hyperglycemia Status: Acute Assessment and Plan: Acute worsening of chronic disease. Blood glucose 332 on admission. A1c 8.7% Accu-checks AC/HS, aspart moderate dose sliding scale insulin with hypoglycemia protocol Continue glipizide, Invokana, and Januvia at home doses. Continue pregabalin at HS Consistent carb diet. (4) Hypertension: Qualifiers: Hypertension type: essential hypertension Qualified Code(s): I10 - Essential (primary) hypertension Code(s): I10 - Essential (primary) hypertension Status: Chronic Assessment and Plan: Chronic, blood pressures reviewed and stable. Nebivolol at home dose (5) Depression: Qualifiers: Active/Remission status: in remission of unspecified degree Depression Type: major depressive disorder Major depression recurrence: unspecified whether recurrent Qualified Code(s): F32.5 - Major depressive disorder, single episode, in full remission Code(s): F32.9 - Major depressive disorder, single episode, unspecified Status: Chronic Assessment and Plan: Chronic, with anxiety, in remission. Continue Abilify, buspirone, and sertraline DS: Summary Hospital Course Reason for hospitalization: Shortness of breath Hospital Course: Patient is an 81-year-old female with COPD, type 2 diabetes mellitus, hypertension, dementia, depression, and anxiety, who presented to the emergency department via EMS from home for evaluation of shortness of breath. She has chronic dyspnea on exertion however, for 4 to 5 days prior to admission she has had increasing shortness of breath from baseline. Despite using her inhalers and nebulizer she continued to have significant wheezing as well as a cough which has been productive with clear phlegm. She has had poor sleep due to shortness of breath. On EMS arrival her SpO2 was 90% on room air and on arrival to the emergency department she was given a stat nebulizer and Solu-Medrol 125 mg x 1. She denies fever, chills, sweats, sinus congestion, sore throat, chest pain, pleuritic pain, palpitations, dysphagia, concerns for aspiration, nausea, vomiting, and diarrhea. Patient was admitted to the medical floor and treated for acute COPD exacerbation. She was started on prednisone 40 mg PO daily, scheduled duonebs, mucinex and empiric azithromycin. Chest X-ray showed patchy airspace opacities of bilateral lung bases concerning for atelectasis versus pneumonia. Although she did have increased dyspnea and sputum. She did not have changes in sputum color or quantity from her usual. Pneumonia was thought to be less likely, however, she was empirically treated with azithromycin. She was weaned to room air with adequate saturations and im
== END 2022-02-27 12:05 | disposition home or self-care (01) ==
LOC: ANHED 11:00 → ANH2MED 19:25
PROVIDERS: Physician Assistant; Admitting Provider Internal Medicine; Emergency Provider Emergency Medicine; PCP Internal Medicine; Visit Provider Nurse Practitioner Family
DX: J44.1 Chronic obstructive pulmonary disease with (acute) exacerbation (principal); R09.02 Hypoxemia; E11.65 Type 2 diabetes mellitus with hyperglycemia; I10 Essential (primary) hypertension; F41.9 Anxiety disorder, unspecified; F32.5 Major depressive disorder, single episode, in full remission; F03.90 Unspecified dementia, unspecified severity, without behavioral disturbance, psychotic disturbance, mood disturbance, and anxiety; G89.29 Other chronic pain; E78.5 Hyperlipidemia, unspecified; E03.9 Hypothyroidism, unspecified; Z20.822 Contact with and (suspected) exposure to COVID-19; Z87.891 Personal history of nicotine dependence; Z79.84 Long term (current) use of oral hypoglycemic drugs; Z79.51 Long term (current) use of inhaled steroids; Z79.891 Long term (current) use of opiate analgesic; Z79.899 Other long term (current) drug therapy; Z83.3 Family history of diabetes mellitus
CPT/HCPCS: 36415; 71045; 80048; 80053; 82948; 83036; 83735; 84443; 85025; 85027; 87070; 87205; 93005; 94640; 96372; 96374; 99285; A9270; C9803; G0378; J1650; J1815; J2930; J7512; U0003; U0005

== ENCOUNTER 2022-04-28 08:10 | Outpatient (CLI) | payer MEDICARE, SELFPAY ==
[2022-04-28 08:30] VITALS: PULSE 89; O2SAT 95
[2022-04-28 08:32] VITALS: PULSE 122; O2SAT 91
[2022-04-28 08:45] VITALS: PULSE 86; O2SAT 95
[2022-04-28 09:04] VITALS: PULSE 123; O2SAT 93
--- NOTE | 2022-04-28 09:10 | HOMEO2EVAL ---
Evaluation was performed at [facility] Home Oxygen Evaluation RC: Home Oxygen (O2) Evaluation Start: 04/28/22 09:03 Freq: Status: Active Protocol: RPE Activity Type Activity Date Activity User E-sign Co-sign Detail Recorded Client Recorded Date Recorded By Document 04/28/22 08:30 TEMITOPE [email or web address] 04/28/22 09:10 TEMITOPE Document 04/28/22 08:32 TEMITOPE [email or web address] 04/28/22 09:10 TEMITOPE Document 04/28/22 08:45 TEMITOPE [email or web address] 04/28/22 09:10 TEMITOPE Document 04/28/22 09:04 TEMITOPE [email or web address] 04/28/22 09:10 TEMITOPE 04/28/22 04/28/22 04/28/22 08:30 08:32 08:45 Home O2 Evaluation [Oxygen] -Test Phase Resting Exercise Resting -Oxygen Delivery Room Air Room Air Room Air [Pulse Oximetry] -Pulse Oximetry (90-100 %) 95 91 95 [Pulse Rate] -Pulse Rate (60-100 beats/min) 89 122 H 86 [Evaluation] -Activity Tolerance Good -Rate of Perceived Exertion (PE) 13 Somewhat Query Text:Click the Protocol Button Hard to View the RPE Scale [Exercise] -Ambulation Distance (feet) 250 -Ambulation Distance (meters) 76.19 [Comments] -Home Oxygen Evaluation Comments Eval completed with wheeled walker, also I repeated this test with second distance approx 125 feet per patient/family request. No O2 needed. Patient walked until she felt unable to continue. [Charges] -Treatment Charges O2 Evaluation - Outpatient 04/28/22 09:04 Home O2 Evaluation [Oxygen] -Test Phase Exercise -Oxygen Delivery Room Air [Pulse Oximetry] -Pulse Oximetry (90-100 %) 93 [Pulse Rate] -Pulse Rate (60-100 beats/min) 123 H [Evaluation] -Activity Tolerance -Rate of Perceived Exertion (PE) Query Text:Click the Protocol Button to View the RPE Scale [Exercise] -Ambulation Distance (feet) -Ambulation Distance (meters) [Comments] -Home Oxygen Evaluation Comments [Charges] -Treatment Charges
== END 2022-04-28 08:11 | disposition home or self-care (01) ==
LOC: ANHPFT 08:15
PROVIDERS: PCP Internal Medicine; Visit Provider Nurse Practitioner Family
DX: R06.09 Other forms of dyspnea (principal)
CPT/HCPCS: 94618

== ENCOUNTER 2022-07-25 09:47 | Outpatient (CLI) | payer MEDICARE, SELFPAY ==
[2022-07-25 12:51] LABS: Alanine Aminotransferase 23 U/L (6-35); Albumin Level 4.2 g/dL (3.5-5.1); Alkaline Phosphatase 78 U/L (38-126); Anion Gap 8 mmol/L (8-16); Aspartate Amino Transferase 36 U/L (14-36); Bilirubin,Total 0.6 mg/dL (0.2-1.3); Blood Urea Nitrogen 19 mg/dL (7-17); Calcium 9.6 mg/dL (8.4-10.2); Carbon Dioxide 28 mmol/L (22-30); Chloride 104 mmol/L (98-107); Cholesterol 181 mg/dL (0-200); Estimated Glomerular Filt Rate 60; Glucose 238 mg/dL (65-110); HDL Direct 58 mg/dL; Potassium 4.7 mmol/L (3.4-5.0); Sodium 140 mmol/L (137-145); Triglycerides 138 mg/dL (<150)
[2022-07-25 13:02] LABS: LDL Cholesterol Direct 81 mg/dL
[2022-07-25 13:08] LABS: Creatinine Urine 52.2 mg/dL
[2022-07-25 13:16] LABS: MALB Creatinine Ratio < 11.5 mg/g (0-30); Microalbumin Urine Random < 6.0 mg/L (0-16.7)
== END 2022-07-25 09:48 | disposition home or self-care (01) ==
LOC: ANHWCLAB 09:51
PROVIDERS: PCP Internal Medicine; Visit Provider Internal Medicine Endocrinology, Diabetes & Metabolism
DX: E11.65 Type 2 diabetes mellitus with hyperglycemia (principal); E78.5 Hyperlipidemia, unspecified; F02.80 Dementia in other diseases classified elsewhere, unspecified severity, without behavioral disturbance, psychotic disturbance, mood disturbance, and anxiety; G30.9 Alzheimer's disease, unspecified; Z71.3 Dietary counseling and surveillance
CPT/HCPCS: 36415; 80053; 80061; 82043; 84443

== ENCOUNTER 2022-08-30 09:01 | Emergency (ER) | payer MEDICARE, SELFPAY ==
[2022-08-30] VITALS (11 sets, daily range): BP systolic 133–135; BP diastolic 61–77; PULSE 85–98; RESP 17–29; TEMP 36.3; O2SAT 93–100
--- NOTE | ~2022-08-30 | XR_ITS ---
Clinical Indication: COPD, cough AP and lateral views of the chest: Comparison: 02/25/2022 Findings: The lungs are clear, without evidence of focal consolidation or pleural effusion. Probable COPD PA Cardiomediastinal silhouette is within normal limits. Bones and soft tissues are unremarkable . Impression: COPD. Clear lungs. Reviewed, dictated and finalized at location . Impression: COPD. Clear lungs.
--- NOTE | 2022-08-30 09:06 | ECG_ITS ---
Measurements Intervals [place] Rate: 90 P: 73 [place]: 152 QRS: -74 QRSD: 76 T: 76 QT: 358 QTc: 439 Interpretive Statements SINUS RHYTHM LEFT AXIS DEVIATION CANNOT RULE OUT SEPTAL INFARCT, AGE INDETERMINATE BASELINE ARTIFACT- I, III, AVR, AVL ABNORMAL ECG COMPARED TO ECG 02/25/2022 11:18:16 MYOCARDIAL INFARCT FINDING NOW PRESENT Electronically Signed On 08-30-2022 9:15:22 CDT by Parish Del Valle D.O.
[2022-08-30 09:50] LABS: Basophils Absolute Auto 0.1 K/mm3 (0.0-0.1); Basophils Percent Auto 0.5 % (0.2-1.2); Eosinophils Absolute Auto 0.1 K/mm3 (0-0.3); Eosinophils Percent Auto 0.8 % (0-4.4); Hematocrit 43.3 % (37.0-47.0); Immature Granulocyte Absolute 0.04 K/mm3 (0.00-0.031); Immature Granulocyte Percent A 0.3 % (0-0.5); Lymphocytes Absolute Auto 1.57 K/mm3 (0.9-3.2); Lymphocytes Percent Auto 11.9 % (18.3-44.2); Mean Corpuscular HGB Conc 32.3 g/dl (32-36); Mean Corpuscular Hemoglobin 30.5 pg (26-34); Mean Corpuscular Volume 94.3 fl (80-100); Mean Platelet Volume 10.1 fl (7.4-10.4); Monocytes Absolute Auto 1.5 K/mm3 (0.1-0.6); Monocytes Percent Auto 11.2 % (2.6-8.5); Neutrophils Absolute Auto 9.9 K/mm3 (1.3-6.7); Neutrophils Percent Auto 75.3 % (45.5-73.1); Platelet Count Result 165 k/mm3 (150-375); Red Blood Count 4.59 M/mm3 (4.2-5.4); Red Cell Distribution Width 13.5 % (11.5-14.5); White Blood Count 13.2 K/mm3 (4.5-10.0)
[2022-08-30] MEDS: methylPREDNISolone SOD SUCC 125 MG VIAL IV PUSH (09:55)
--- NOTE | 2022-08-30 09:56 | ED.URI ---
HPI - URI/Sore Throat General Chief Complaint: Upper Respiratory Infection Stated Complaint: weakness Time Seen by Provider: 08/30/22 09:09 Source: patient Mode of arrival: ambulatory Limitations: no limitations History of Present Illness HPI Narrative: This is a 81-year-old female that presents to the emergency department for cold symptoms present over the last couple of days. Reports productive cough, shortness of breath, and wheezing. Does report history of COPD. Reports she has been taking her inhalers as prescribed without relief. Denies fevers or chest pain. Related Data Home Medications Medication Instructions Recorded Confirmed lansoprazole 15 mg capsule,delayed 15 mg PO DAILY PRN Abdominal 04/24/19 07/25/22 release Discomfort sertraline 100 mg tablet 200 mg PO DAILY 01/24/20 07/25/22 aripiprazole 2 mg tablet 2 mg PO QHS 08/25/21 07/25/22 buspirone 5 mg tablet 10 mg PO TID 08/25/21 07/25/22 memantine 5 mg tablet (Namenda) 5 mg PO BID 08/25/21 07/25/22 blood sugar diagnostic 09/21/21 07/25/22 blood-glucose meter 09/21/21 07/25/22 lancets 33 gauge (OneTouch Delica 09/21/21 07/25/22 Plus Lancet) atorvastatin 10 mg tablet 10 mg PO DAILY 02/25/22 07/25/22 Allergies Allergy/AdvReac Type Severity Reaction Status Date / Time cephalexin Allergy Unknown Unknown Verified 07/25/22 08:56 ciprofloxacin Allergy Unknown Unknown Verified 07/25/22 08:56 clindamycin Allergy Unknown Unknown Verified 07/25/22 08:56 influenza virus vaccine, Allergy Unknown Unknown Verified 08/30/22 09:12 specific Influenza Virus Vaccines Allergy Unknown Unknown Verified 08/30/22 09:12 levofloxacin Allergy Unknown Unknown Verified 08/30/22 09:12 Penicillins Allergy Unknown Unknown Verified 08/30/22 09:12 pneumococcal vaccine Allergy Unknown Unknown Verified 08/30/22 09:12 Sulfa (Sulfonamide Allergy Unknown Unknown Verified 08/30/22 09:12 Antibiotics) tetanus and diphtheria Allergy Unknown Unknown Verified 08/30/22 09:12 toxoids tetanus immune globulin Allergy Unknown Unknown Verified 08/30/22 09:12 Tetanus Vaccines and Toxoid Allergy Unknown Unknown Verified 08/30/22 09:12 metformin AdvReac Unknown Verified 08/30/22 09:12 Review of Systems Review of Systems: CONSTITUTIONAL: Denies fever ENT: Reports rhinorrhea, congestion. Denies sore throat CARDIOVASCULAR: Denies chest pain, or edema. RESPIRATORY: Reports cough and dyspnea. All systems reviewed & are unremarkable except as noted in HPI and below PMFSH Past Medical History Medical History Anxiety Bladder cancer Chronic obstructive pulmonary disease Dementia Depression Hyperlipidemia Hypertension Hypothyroidism Osteoarthritis Seasonal allergies Type 2 diabetes mellitus Surgical History Surgical History History of bladder surgery (06/17/14) Transurethral resection of bladder tumor which showed noninvasive low-grade papillary urothelial carcinoma. History of cataract removal with insertion of prosthetic lens Family History Family History Mother Hypertension Patient's mother is Family history of thoracic aortic aneurysm Sibling Patient's sister is in good health Acute myocardial infarction TIA (transient ischemic attack) Father Family history of diabetes mellitus in first degree relative Family history of malignant neoplasm of brain, Onset Age: 85 Malignant neoplasm of prostate Bone tumor Father Diabetes mellitus Other Arthritis Brain cancer Social History Social History Social History: Surrogate medical decision maker: Kristine Kirkpatrick status: Full code. Smoking packs per day: 2 Smoking cigarettes per day: 40.0 Years smoked: 58 Smoking pack-years: 116.00 Smoking status: Former smoker Tobacco type
[2022-08-30 10:01] LABS: Alanine Aminotransferase 18 U/L (6-35); Albumin Level 4.4 g/dL (3.5-5.1); Alkaline Phosphatase 86 U/L (38-126); Anion Gap 12 mmol/L (8-16); Aspartate Amino Transferase 20 U/L (14-36); Bilirubin,Total 1.2 mg/dL (0.2-1.3); Blood Urea Nitrogen 28 mg/dL (7-17); Calcium 8.9 mg/dL (8.4-10.2); Carbon Dioxide 20 mmol/L (22-30); Chloride 104 mmol/L (98-107); Estimated CRCL calculation 60 ml/min; Estimated Glomerular Filt Rate > 60; Glucose 179 mg/dL (65-110); Potassium 4.2 mmol/L (3.4-5.0); Sodium 136 mmol/L (137-145)
[2022-08-30] MEDS: IPRATROPIUM BR 0.02% INH SOLN 0.5 MG/2.5 ML VIAL INHALATION (10:10)
[2022-08-30] MEDS: ALBUTEROL SULFATE NEB 2.5 MG/3 ML INH INHALATION (10:10)
[2022-08-30 10:25] LABS: Influenza A QL RT-PCR Negative (Negative); Influenza B QL RT-PCR Negative (Negative); SARS-CoV-2 RNA PCR Negative
--- NOTE | 2022-08-30 10:57 | PC.NURSE ---
Pt removed IV and took her monitor off. Pt states I'm ready to get sprung out of here.
== END 2022-08-30 11:24 | disposition home or self-care (01) ==
PROVIDERS: Emergency Medicine; Emergency Provider Physician Assistant; PCP Internal Medicine
DX: J44.1 Chronic obstructive pulmonary disease with (acute) exacerbation (principal); Z20.822 Contact with and (suspected) exposure to COVID-19; F03.90 Unspecified dementia, unspecified severity, without behavioral disturbance, psychotic disturbance, mood disturbance, and anxiety; I10 Essential (primary) hypertension; E78.5 Hyperlipidemia, unspecified; E11.9 Type 2 diabetes mellitus without complications; E03.9 Hypothyroidism, unspecified; M19.90 Unspecified osteoarthritis, unspecified site; F41.9 Anxiety disorder, unspecified; F32.A Depression, unspecified; Z79.4 Long term (current) use of insulin; Z79.84 Long term (current) use of oral hypoglycemic drugs
CPT/HCPCS: 36415; 71046; 80053; 85025; 87636; 93005; 94640; 96374; 99284; J2930

== ENCOUNTER 2022-09-04 04:51 | Observation (INO) | payer MEDICARE, SELFPAY ==
[2022-09-04] VITALS (15 sets, daily range): BP systolic 97–156; BP diastolic 71–88; PULSE 90–113; RESP 14–29; TEMP 36.3–37.1; O2SAT 88–97
--- NOTE | ~2022-09-04 | US_ITS ---
Duplex Sonography of the bilateral lower extremities: Indication: Pain Sagittal and transverse B-mode images as well as color-flow imaging were performed on the right and l eft femoral and popliteal veins. B-mode examination was done without and with compression in the tra nsverse plane. There is good visualization of the bilateral common femoral, proximal profunda femora l, superficial femoral, greater saphenous, and popliteal veins. Normal flow was seen on color-flow im aging. Normal compressibility was demonstrated. Visualized calf veins are also patent. Impression: No evidence of deep vein thrombosis involving either lower extremity. Reviewed, dictated and finalized at location M. Impression: No evidence of deep vein thrombosis involving either lower extremit y.
--- NOTE | ~2022-09-04 | XR_ITS ---
XR chest 1V portable INDICATION: Dyspnea TECHNIQUE: 2 view chest. FINDINGS: Comparison to multiple prior studies sequentially, with oldest reviewed study dated 022. There is mild bilateral interstitial prominence and peribronchial cuffing. There is no focal consoli dation, pleural effusion, or pneumothorax. The cardiomediastinal silhouette is normal. IMPRESSION: 1. Findings most consistent with bronchiolitis versus an atypical or viral pneumonia. Reviewed, dictated and finalized at location A. IMPRESSION: 1. Findings most consistent with bronchiolitis versus an atypical or viral pne [facility].
--- NOTE | ~2022-09-04 | XR_ITS ---
Clinical Indication: Shortness of breath AP and lateral views of the chest: Comparison: 09/04/2022 Findings: Focal airspace opacity present in the medial right lung base. Stable calcified left basilar granuloma. Cardiomediastinal silhouette is within normal limits. Bones and soft tissues are unremar kable. Impression: Possible focal pneumonia versus atelectatic change at the medial right lung base. Reviewed, dictated and finalized at location . Impression: Possible focal pneumonia versus atelectatic change at the medial right lung bas e.
--- NOTE | ~2022-09-04 | XR_ITS ---
XR chest 1V portable DATE: 09/07/2022 09:58 INDICATION: COPD TECHNIQUE: Portable upright AP chest on 09/07/2022 at 0954 hours COMPARISON: 09/05/2022 AP and lateral chest FINDINGS: Heart size is within normal range. Is aortic calcification and unfolding. No hilar or media stinal enlargement. 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 No pulmonary infiltrate or consolidation, pleural effusion or pulmonary vascular congestion or pneumo thorax is detected. IMPRESSION: No active cardiac pulmonary disease Aortic atherosclerosis Reviewed, dictated and finalized at location B.
--- NOTE | 2022-09-04 05:03 | ECG_ITS ---
Measurements Intervals [place] Rate: 91 P: 70 [place]: 135 QRS: -66 QRSD: 86 T: 59 QT: 348 QTc: 428 Interpretive Statements SINUS RHYTHM LEFT AXIS DEVIATION CANNOT RULE OUT SEPTAL INFARCT, AGE INDETERMINATE BASELINE ARTIFACT- V6 ABNORMAL ECG COMPARED TO ECG 08/30/2022 09:06:48 NO SIGNIFICANT CHANGES Electronically Signed On 09-04-2022 8:12:08 CDT by Parish Del Valle D.O.
[2022-09-04 05:23] LABS: Basophils Absolute Auto 0.1 K/mm3 (0.0-0.1); Basophils Percent Auto 0.6 % (0.2-1.2); Eosinophils Absolute Auto 0.3 K/mm3 (0-0.3); Eosinophils Percent Auto 2.3 % (0-4.4); Hematocrit 40.1 % (37.0-47.0); Hemoglobin 12.9 g/dL (12.0-15.0); Immature Granulocyte Absolute 0.11 K/mm3 (0.00-0.031); Immature Granulocyte Percent A 0.8 % (0-0.5); Lymphocytes Absolute Auto 2.66 K/mm3 (0.9-3.2); Lymphocytes Percent Auto 19.2 % (18.3-44.2); Mean Corpuscular HGB Conc 32.2 g/dl (32-36); Mean Corpuscular Hemoglobin 30.4 pg (26-34); Mean Corpuscular Volume 94.6 fl (80-100); Monocytes Absolute Auto 1.3 K/mm3 (0.1-0.6); Monocytes Percent Auto 9.3 % (2.6-8.5); Neutrophils Absolute Auto 9.4 K/mm3 (1.3-6.7); Neutrophils Percent Auto 67.8 % (45.5-73.1); Platelet Count Result 202 k/mm3 (150-375); Red Blood Count 4.24 M/mm3 (4.2-5.4); Red Cell Distribution Width 13.6 % (11.5-14.5); White Blood Count 13.8 K/mm3 (4.5-10.0)
[2022-09-04 05:37] LABS: Alanine Aminotransferase 21 U/L (6-35); Albumin Level 3.8 g/dL (3.5-5.1); Alkaline Phosphatase 88 U/L (38-126); Anion Gap 4 mmol/L (8-16); Aspartate Amino Transferase 22 U/L (14-36); Bilirubin,Total 0.5 mg/dL (0.2-1.3); Blood Urea Nitrogen 16 mg/dL (7-17); Carbon Dioxide 30 mmol/L (22-30); Chloride 104 mmol/L (98-107); Estimated CRCL calculation 68 ml/min; Estimated Glomerular Filt Rate > 60; Glucose 231 mg/dL (65-110); Potassium 4.7 mmol/L (3.4-5.0); Sodium 138 mmol/L (137-145)
[2022-09-04 05:45] LABS: Troponin I < 0.012 ng/mL (0.000-0.034)
[2022-09-04] MEDS: IPRATROPIUM BR 0.02% INH SOLN 0.5 MG/2.5 ML VIAL 2 MG INHALATION (05:52)
[2022-09-04] MEDS: ALBUTEROL SULFATE NEB 2.5 MG/3 ML INH 10 MG INHALATION (05:52)
[2022-09-04] MEDS: methylPREDNISolone SOD SUCC 125 MG VIAL IV PUSH (06:12)
[2022-09-04] MEDS: MAGNESIUM SULF 2 GM/WATER 50ML 2 GM/50 ML BAG IVPB (06:15)
[2022-09-04] MEDS: SODIUM CHLORIDE 0.9% IV 1,000 ML 999 ML IV CONT (06:15)
[2022-09-04 06:35] LABS: Basophils Absolute Auto 0.1 K/mm3 (0.0-0.1); Basophils Percent Auto 0.5 % (0.2-1.2); Eosinophils Absolute Auto 0.3 K/mm3 (0-0.3); Eosinophils Percent Auto 2.1 % (0-4.4); Hemoglobin 13.3 g/dL (12.0-15.0); Immature Granulocyte Absolute 0.13 K/mm3 (0.00-0.031); Immature Granulocyte Percent A 0.8 % (0-0.5); Lymphocytes Absolute Auto 3.48 K/mm3 (0.9-3.2); Lymphocytes Percent Auto 22.6 % (18.3-44.2); Mean Corpuscular HGB Conc 32.4 g/dl (32-36); Mean Corpuscular Hemoglobin 30.6 pg (26-34); Mean Corpuscular Volume 94.5 fl (80-100); Mean Platelet Volume 9.8 fl (7.4-10.4); Monocytes Absolute Auto 1.6 K/mm3 (0.1-0.6); Monocytes Percent Auto 10.1 % (2.6-8.5); Neutrophils Absolute Auto 9.8 K/mm3 (1.3-6.7); Neutrophils Percent Auto 63.9 % (45.5-73.1); Platelet Count Result 201 k/mm3 (150-375); Red Blood Count 4.34 M/mm3 (4.2-5.4); Red Cell Distribution Width 13.5 % (11.5-14.5); White Blood Count 15.4 K/mm3 (4.5-10.0)
[2022-09-04 06:42] LABS: Magnesium 2.3 mg/dL (1.6-2.3)
[2022-09-04 06:43] LABS: Anion Gap 5 mmol/L (8-16); Blood Urea Nitrogen 16 mg/dL (7-17); Calcium 8.7 mg/dL (8.4-10.2); Carbon Dioxide 27 mmol/L (22-30); Chloride 103 mmol/L (98-107); Estimated CRCL calculation 68 ml/min; Estimated Glomerular Filt Rate > 60; Glucose 236 mg/dL (65-110); Potassium 4.8 mmol/L (3.4-5.0); Sodium 135 mmol/L (137-145)
--- NOTE | 2022-09-04 06:54 | ED.GENADULT ---
HPI - General Adult General Chief complaint: Shortness of Breath/Dyspnea <Evelio Salinas MD - Last Filed: 09/04/22 07:14> Stated complaint: short of breath <Evelio Salinas MD - Last Filed: 09/04/22 07:14> Time Seen by Provider: 09/04/22 05:26 <Evelio Salinas MD - Last Filed: 09/04/22 07:14> History of Present Illness HPI narrative: This is an 81-year-old female with history of COPD presenting ED with shortness of breath. patient has poor respiratory status at baseline. She says it became acutely worse this afternoon. Associated with her chronic cough. patient is unable to walk to the bathroom without becoming dyspneic. Patient was seen here in the emergency room 3 days ago after COPD exacerbation precipitated by URI symptoms. Patient denies chest pain, fever, chills, nausea vomiting diarrhea or weakness. My interview the patient started when I found her in the restroom. She tried to walk to the bathroom and she became so short of breath she required a wheelchair to get back to her room. <Evelio Salinas MD - Last Filed: 09/04/22 07:14> Related Data Home medications: Home Medications Medication Instructions Recorded Confirmed lansoprazole 15 mg capsule,delayed 15 mg PO DAILY PRN Abdominal 04/24/19 07/25/22 release Discomfort sertraline 100 mg tablet 200 mg PO DAILY 01/24/20 07/25/22 aripiprazole 2 mg tablet 2 mg PO QHS 08/25/21 07/25/22 buspirone 5 mg tablet 10 mg PO TID 08/25/21 07/25/22 memantine 5 mg tablet (Namenda) 5 mg PO BID 08/25/21 07/25/22 blood sugar diagnostic 09/21/21 07/25/22 blood-glucose meter 09/21/21 07/25/22 lancets 33 gauge (OneTouch Delica 09/21/21 07/25/22 Plus Lancet) atorvastatin 10 mg tablet 10 mg PO DAILY 02/25/22 07/25/22 <Evelio Salinas MD - Last Filed: 09/04/22 07:14> Allergies/adverse reactions: Allergies Allergy/AdvReac Type Severity Reaction Status Date / Time cephalexin Allergy Unknown Unknown Verified 07/25/22 08:56 ciprofloxacin Allergy Unknown Unknown Verified 07/25/22 08:56 clindamycin Allergy Unknown Unknown Verified 07/25/22 08:56 influenza virus vaccine, Allergy Unknown Unknown Verified 08/30/22 09:12 specific Influenza Virus Vaccines Allergy Unknown Unknown Verified 08/30/22 09:12 levofloxacin Allergy Unknown Unknown Verified 08/30/22 09:12 Penicillins Allergy Unknown Unknown Verified 08/30/22 09:12 pneumococcal vaccine Allergy Unknown Unknown Verified 08/30/22 09:12 Sulfa (Sulfonamide Allergy Unknown Unknown Verified 08/30/22 09:12 Antibiotics) tetanus and diphtheria Allergy Unknown Unknown Verified 08/30/22 09:12 toxoids tetanus immune globulin Allergy Unknown Unknown Verified 08/30/22 09:12 Tetanus Vaccines and Toxoid Allergy Unknown Unknown Verified 08/30/22 09:12 metformin AdvReac Unknown Verified 08/30/22 09:12 <Evelio Salinas MD - Last Filed: 09/04/22 07:14> [facility] Past Medical History Medical History: Medical History Anxiety Bladder cancer Chronic obstructive pulmonary disease Dementia Depression Hyperlipidemia Hypertension Hypothyroidism Osteoarthritis Seasonal allergies Type 2 diabetes mellitus <Evelio Salinas MD - Last Filed: 09/04/22 07:14> Surgical History Surgical History: Surgical History History of bladder surgery (06/17/14) Transurethral resection of bladder tumor which showed noninvasive low-grade papillary urothelial carcinoma. History of cataract removal with insertion of prosthetic lens <Evelio Salinas MD - Last Filed: 09/04/22 07:14> Family History Family History: Family History Mother Hypertension Patient's mother is Family history of thoracic aortic aneurysm Sibling Patient's sister is in good health Acute myocardial infarction TIA (transient ischemic attack) Father Family h
--- NOTE | 2022-09-04 07:19 | PC.NURSE ---
Patient report received from ZARINA Childs. All questions answered and care of patient assumed. Patient resting quietly in stretcher with call-light in reach. Requesting that this RN notify her sister that she is in the ED. VSS. Sating 92% on RA. Slightly tachycardic with rate of 110s. Awaiting disposition.
--- NOTE | 2022-09-04 08:24 | PC.NURSE ---
Pt talked about ripping out her IV, and taking her blood pressure cuff off and throwing it across the room because it hurts . Pt educated on the need for both IV and blood pressure cuff. Pt still removed own blood pressure cuff, does not want to be monitored.
[2022-09-04 12:23] LABS: Glucose Point of Care > 500 mg/dl (65-105)
[2022-09-04] MEDS: INSULIN ASPART (*BKC) 100 UNITS/ML 10 UNITS SUB-Q ×2 (12:55→14:33)
[2022-09-04] MEDS: ACETAMINOPHEN 325 MG TABLET 650 MG PO (12:56)
[2022-09-04 14:22] LABS: Glucose Point of Care > 500 mg/dl (65-105)
[2022-09-04 16:47] LABS: Glucose Point of Care 195 mg/dl (65-105)
--- NOTE | 2022-09-04 19:23 | PM.IMHP ---
H&P: HPI History of Present Illness Date/Time: 09/04/22 19:23 Chief Complaint: Shortness of breath Narrative: 81yo female with COPD, dementia, DM and HTN here for shortness of breath. Patient presented to the ED on 08/30 with a 2 day hx of cold symptoms and weakness. Also with cough, wheezing and SOB. She was using her inhaler without much benefit. CXR was clear. COVID/RSV/Influenza negative. She was treated with Solu-medrol and neb treatments. She was discharged on Prednisone 40mg for 4 days. A few days later, she called EMS for SOB. A neb treatment was given and she had improvement. She does have a nebulizer machine at home and states she has been using it 3x/day. She has been having increasing NG prompting her to present again to the ED. She is having cough productive of brown sputum. No fever or chills. No headaches but had one since admission. She has chronic vision changes and hearing loss. No n/v. No CP or palpation. No odynophagia or dyspaghia. Does not wear O2 at home. Does not wear bipap at home. No hx of EDMOND. In the ED, her BP was soft at 97/83 and RR 28. She was on 2L. COVID not repeated. Troponin negative. EKG showing no acute findings. She was treated with albuterol and atrovent nebs, solu-medrol x1 and Magnesium. Since admission, her glucose became extremely high (>500) requiring frequent testing and treatment. Review of Systems Review of Systems: All systems reviewed & are unremarkable except as noted in HPI and below PMFSH Past Medical History Medical History (Updated 09/04/22 @ 19:43 by Sundar Washington MD) Anxiety Bladder cancer Chronic obstructive pulmonary disease Dementia Depression Hyperlipidemia Hypertension Hypothyroidism Osteoarthritis Seasonal allergies Type 2 diabetes mellitus Surgical History Surgical History History of bladder surgery (06/17/14) Transurethral resection of bladder tumor which showed noninvasive low-grade papillary urothelial carcinoma. History of cataract removal with insertion of prosthetic lens Family History Family History Mother Hypertension Patient's mother is Family history of thoracic aortic aneurysm Sibling Patient's sister is in good health Acute myocardial infarction TIA (transient ischemic attack) Father Family history of diabetes mellitus in first degree relative Family history of malignant neoplasm of brain, Onset Age: 85 Malignant neoplasm of prostate Bone tumor Father Diabetes mellitus Other Arthritis Brain cancer Social History Social History Social History: Surrogate medical decision maker: Kristine Code status: Full code. Smoking packs per day: 2 Smoking cigarettes per day: 40.0 Years smoked: 58 Smoking pack-years: 116.00 Smoking status: Former smoker Tobacco type: cigarettes Second hand tobacco smoke exposure: Yes Smoking end date: 03/19/19 Alcohol intake: never Substance use: never Substance use type: does not use Lack of Transportation: No Lack of Food: Never True Current Housing: I Have Housing Concerned About Future Housing: No Difficulty Paying Gas/Electric Bills: No Difficulty Paying for Meds: No Currently Unemployed: No Education: Bachelor's Degree Difficulty w/ Childcare or Family Care: No Additional living arrangements comments: The patient lives in her own home in [place] with her 2 cats. Gender identity (if verbalized by the patient): Female Spiritual care concerns: No Agree to blood products: Yes Meds Home Medications and Allergies Home Medications Medication Instructions Recorded Confirmed Type lansoprazole 15 mg capsule,delayed 15 mg PO DAILY PRN Abdominal 04/24/19 09/04/22 History release Discomfort nebulizer and compressor (Home #1 ea 05/14/19 07/25/22 Rx Nebuli
[2022-09-04] MEDS: busPIRone HCL 5 MG TABLET 10 MG PO (20:54)
[2022-09-04] MEDS: MEMANTINE 5 MG TABLET PO (20:55)
[2022-09-04] MEDS: NEBIVOLOL HCL 5 MG TABLET 10 MG PO (20:55)
[2022-09-04] MEDS: ARIPiprazole 2 MG TABLET PO (20:56)
[2022-09-04] MEDS: guaiFENesin 12 HR 600 MG TABCR 1200 MG PO (20:56)
[2022-09-04] MEDS: AZELASTINE HCL NASAL 0.1% 137 MCG/SPR 30 ML BTL 1 SPRAY NASAL (20:56)
[2022-09-04] MEDS: ALBUTEROL SULFATE NEB 2.5 MG/3 ML INH INHALATION (21:37)
[2022-09-04] MEDS: IPRATROPIUM BR 0.02% INH SOLN 0.5 MG/2.5 ML VIAL INHALATION (21:37)
[2022-09-04] MEDS: guaiFENesin/DEXTROMETHORPHAN 10 ML UDC 5 ML PO (21:48)
[2022-09-04] MEDS: PREGABALIN (*CRX) 50 MG CAPSULE PO (22:18)
[2022-09-04 22:54] LABS: Glucose Point of Care 278 mg/dl (65-105)
[2022-09-04 23:43] LABS: Glucose Point of Care 263 mg/dl (65-105)
[2022-09-05] VITALS (15 sets, daily range): BP systolic 108–144; BP diastolic 55–97; PULSE 76–110; RESP 16–22; TEMP 36.6–36.9; O2SAT 92–96
--- NOTE | 2022-09-05 | ECHO_ITS ---
Patient Info Name: Viola Dominguez Age: 81 years : 1940 Gender: Female Ht: 64 in Wt: 198 lbs BSA: 2.05 m2 HR: 88 bpm BP: 116 / 75 mmHg Technical Quality: Fair Exam Date: 09/05/2022 1:13 PM Exam Location: [facility] Pulmonary Patient Status: Inpatient Admit Date: 09/04/2022 Staff Ordering Physician: Sundar Washington MD Library Page: Erich Peralta, SONA, RT Attending Provider: Lily Cagle MD Exam Type: CA echo doppler color flow Study Info Indications R06.02 - Shortness of breath Complete two-dimensional, color flow and Doppler transthoracic echocardiogram is performed. Strain analysis performed. Summary 1. Complete two-dimensional, color flow and Doppler transthoracic echocardiogram is performed. 2. Left ventricular chamber dimension is normal. 3. Left ventricular systolic function is normal, estimated at 60-65%. 4. There is mild concentric increased left ventricular wall thickness. 5. The left ventricular diastolic function is grade I diastolic dysfunction. 6. E/e' 10 is mildly elevated. 7. Global longitudinal strain is normal at -21.2%. 8. Left atrial chamber dimension is mildly enlarged. 9. No pulmonary hypertension, estimated pulmonary arterial systolic pressure is 35 mmHg. 10. Dilated inferior vena cava with >50% collapse upon inspiration consistent with elevated right atrial pressure, 10 mmHg. Left Ventricle E/e' 10 is mildly elevated. Global longitudinal strain is normal at -21.2%. Left ventricular chamber dimension is normal. Left ventricular systolic function is normal, estimated at 60-65%. There is mild concentric increased left ventricular wall thickness. The left ventricular diastolic function is grade I diastolic dysfunction. Right Ventricle Right ventricular chamber dimension is normal. Right ventricular systolic function is normal. Left Atria Left atrial chamber dimension is mildly enlarged. Right Atria Right atrial chamber dimension is normal. Aortic Valve There is no aortic valve stenosis based on valve area and gradients. The aortic valve is not well visualized. Cannot determine number of aortic valve leaflets. There is no aortic valve regurgitation. Pulmonic Valve There is no pulmonic regurgitation. Mitral Valve There is no mitral valve stenosis. There is no mitral valve regurgitation. Tricuspid Valve There is no tricuspid valve regurgitation. No pulmonary hypertension, estimated pulmonary arterial systolic pressure is 35 mmHg. Pericardium/Pleural There is no pericardial effusion. Inferior Vena Cava Dilated inferior vena cava with >50% collapse upon inspiration consistent with elevated right atrial pressure, 10 mmHg. Aorta The aortic root size at the sinus of Valsalva is normal. Left Ventricular Outflow Tract Name Value Normal LVOT 2D LVOT Diameter 2.0 cm LVOT Doppler LVOT Peak Gradient 7 mmHg LVOT Mean Gradient 4 mmHg LVOT VTI 27 cm LVOT VTI/AV VTI Ratio 0.9 LVOT Stroke Volume 82 ml
[2022-09-05 00:38] LABS: Glucose Point of Care 206 mg/dl (65-105)
[2022-09-05] MEDS: ALBUTEROL SULFATE NEB 2.5 MG/3 ML INH INHALATION ×4 (02:56→20:00)
[2022-09-05] MEDS: IPRATROPIUM BR 0.02% INH SOLN 0.5 MG/2.5 ML VIAL INHALATION ×4 (02:56→20:00)
[2022-09-05] MEDS: FLUTICASONE/UMECLIDIN/VILANTER 100-62.5-25 MCG ELLIPTA 2 PUFF INHALATION (08:04)
[2022-09-05 08:22] LABS: Glucose Point of Care 202 mg/dl (65-105)
--- NOTE | 2022-09-05 08:39 | PM.IMPN ---
Progress Note: A&P Assessment and Plan (1) Acute exacerbation of chronic obstructive pulmonary disease (COPD): Code(s): J44.1 - Chronic obstructive pulmonary disease with (acute) exacerbation Status: Acute Assessment and Plan: Less wheezy today. LE venous dopplers negative for DVT. Speech therapy felt patient could swallow safely. Echo pending. Continue nebulizer treatments. Continue prednisone. Cultures obtained and they are pending. Continue Azihromycin. Repeat CXR. Follow. Pulmonary consulted. (2) Pneumonia: Code(s): J18.9 - Pneumonia, unspecified organism Status: Acute Assessment and Plan: CXR on 08/30 was clear. Repeat CXR on this admission showing bronchiolitis vs PNA. Repeat COVID/RSV/Influenza negative. Probably PNA present on admission. Azithro was started. Repeat CXR. Check MRSA nasal swab (3) Type 2 diabetes mellitus with hyperglycemia: Qualifiers: Diabetes mellitus medical terminologist insulin use: without senior care use Qualified Code(s): E11.65 - Type 2 diabetes mellitus with hyperglycemia Code(s): E11.65 - Type 2 diabetes mellitus with hyperglycemia Status: Acute Assessment and Plan: The patient's blood glucose was reviewed on 09/05 Glucose remains elevated into the 200's consistently but better since admission. Continue AccuCheks covering with sliding scale. Hypoglycemia protocol available as needed. Advance Lantus if glucose remains elevated. (4) Hypertension: Qualifiers: Hypertension type: essential hypertension Qualified Code(s): I10 - Essential (primary) hypertension Code(s): I10 - Essential (primary) hypertension Status: Chronic Assessment and Plan: Patient's blood pressure was reviewed on 09/05 Blood pressure remains well controlled. Will continue current medications. (5) Dementia: Code(s): F03.90 - Unspecified dementia, unspecified severity, without behavioral disturbance, psychotic disturbance, mood disturbance, and anxiety Status: Acute Assessment and Plan: Mood stable. Continue Namenda. Subjective Date/time seen: 09/05/22 08:39 Interval history: 81yo female with COPD, dementia, DM and HTN here for shortness of breath. cough is less productive today but still having yellow sputum. Her shortness of breath is unchanged. No chest pain. She did sleep well last. Exam Narrative: AF 108/80 86 20 92% ra Gen - NARD Sitting up in bed receiving a breathing treatment Chest - bibasilar inspiratory crackles. No wheezing. CV - RRR. S1-S2. Abd - soft. NT/ND. Positive bowel sounds. No organomegaly or masses. Ext - no pedal edema. Psych - normal mood and affect. Skin - warm and dry. Objective Data Vital Signs Vital Signs: Vital Signs - 24 hr 09/04/22 09:15 09/04/22 09:09 09/04/22 14:00 Temperature 97.8 F 97.3 F L Pulse Rate 105 H 101 H Respiratory Rate 20 14 Blood Pressure 143/88 H 156/74 H Pulse Oximetry 93 93 Oxygen Delivery Room Air 09/04/22 20:55 09/04/22 21:21 09/04/22 21:51 Temperature 98 F Pulse Rate 101 H 90 95 Respiratory Rate 16 22 H Blood Pressure 116/75 Pulse Oximetry 93 Oxygen Delivery 09/05/22 02:58 09/04/22 20:00 09/05/22 03:15 Temperature Pulse Rate 96 92 Respiratory Rate 20 22 H Blood Pressure Pulse Oximetry Oxygen Delivery Room Air 09/04/22 22:05 09/05/22 06:00 09/05/22 07:58 Temperature 98.4 F Pulse Rate 95 86 Respiratory Rate 20 20 Blood Pressure 108/80 Pulse Oximetry 92 92 Oxygen Delivery Room Air 09/05/22 07:55 09/05/22 08:16 Temperature Pulse Rate 89 86 Respiratory Rate 20 20 Blood Pressure Pulse Oximetry Oxygen Delivery Intake/Output Intake/Output: Intake & Output 09/02/22 09/03/22 09/04/22 09/05/22 23:59 23:59 23:59 23:59 Intake Total 7203 613 Balance 0147 280 Meds/Results Medications: Active Medications Generic Name
[2022-09-05] MEDS: predniSONE 20 MG TABLET 40 MG PO (08:50)
[2022-09-05] MEDS: ATORVASTATIN 10 MG TABLET PO (08:50)
[2022-09-05] MEDS: AZELASTINE HCL NASAL 0.1% 137 MCG/SPR 30 ML BTL 1 SPRAY NASAL ×2 (08:50→21:07)
[2022-09-05] MEDS: guaiFENesin 12 HR 600 MG TABCR 1200 MG PO ×2 (08:51→21:07)
[2022-09-05] MEDS: ENOXAPARIN 40 MG/0.4 ML SYRINGE SUB-Q (08:51)
[2022-09-05] MEDS: EMPAGLIFLOZIN 25 MG TABLET PO (08:51)
[2022-09-05] MEDS: busPIRone HCL 5 MG TABLET 10 MG PO ×3 (08:51→17:56)
[2022-09-05] MEDS: MELOXICAM 7.5 MG TABLET PO (08:52)
[2022-09-05] MEDS: SERTRALINE HCL 50 MG TABLET 200 MG PO (08:52)
[2022-09-05] MEDS: INSULIN ASPART (*BKC) 100 UNITS/ML SUB-Q ×6 (08:54→17:57)
[2022-09-05] MEDS: INSULIN GLARGINE (*BKC) 100 UNITS/ML 20 UNITS SUB-Q (10:30)
[2022-09-05] MEDS: MEMANTINE 5 MG TABLET PO ×2 (10:31→17:56)
[2022-09-05] MEDS: NEBIVOLOL HCL 5 MG TABLET 10 MG PO (10:32)
[2022-09-05 11:23] LABS: Influenza A QL RT-PCR Negative (Negative); Influenza B QL RT-PCR Negative (Negative); RSV RNA, RT-PCR Negative (Negative); SARS-CoV-2 RNA PCR Negative
[2022-09-05 12:36] LABS: Glucose Point of Care 291 mg/dl (65-105)
--- NOTE | 2022-09-05 12:52 | PCSTNOTE ---
Please refer to the Bedside Swallow Evaluation in the EMR. Please note, silent aspiration cannot be ruled out at bedside.
--- NOTE | 2022-09-05 14:29 | PM.CNPUL ---
Assessment and Plan Assessment and plan (1) Acute exacerbation of chronic obstructive pulmonary disease (COPD): Code(s): J44.1 - Chronic obstructive pulmonary disease with (acute) exacerbation Status: Acute Assessment and Plan: Regarding her GOLD grade 2 group E COPD the patient has 116 pack year tobacco use quit in 2019, PFTs on 01/17/2019 with an FEV1 of 1.17 L, 64% predicted, air trapping, hyperinflation, no bronchodilator response and a DLCO that normalized for lung volume. She needed no oxygen on home O2 assessment on 04/28/2022 and no oxygen per overnight oximetry on 10/13/2021. Patient has no evidence of hypercarbic respiratory failure with a blood gas of 7.41/38/78 on 12/08/2021. the patient was seen in the emergency department on 08/30 with an acute exacerbation of COPD and given outpatient prednisone which she failed and was admitted on 09/04 with worsening cough, dyspnea on exertion, wheezing, hypoxemia, increased phlegm production, change in phlegm to brown. She has a moderate COPD exacerbation. No evidence of pneumonia on her chest x-ray. Covid, RSV and influenza RT PCR studies are negative. Sputum and blood cultures are pending. 09/05 Currently the patient tells me she is 30% back to her normal and improved. She states that her cough is 95% resolved. Her wheezes or 50% resolved and she is breathing better. Her sputum has changed from brown to yellow to green color and there is decreased volume. Lower extremity Dopplers were negative for DVT. Echocardiogram demonstrated normal LVEF at 60-65%, grade 1 diastolic dysfunction, normal right atrial size, normal right ventricular size and function, PASP 35. Plan: At this time I will continue prednisone 40 mg p.o. Q day, I will increase the frequency of her albuterol and ipratropium nebulizers from q.6 hours to q.4 hours, I will add budesonide 0.5 mg b.i.d. and discontinue her trilogy as she is on maximal dose beta agonist, muscarinic antagonist and inhaled corticosteroid. She is on day 2 of azithromycin and I agree with continuation of this. Continue guaifenesin 1200 mg p.o. q.12 hours and I will also order a Cornet flutter valve to aid in sputum expectoration. Patient has home nebulizer that is broken and she will require a new nebulizer on discharge. She will need home O2 assessment an overnight oximetry evaluated prior to discharge. Will follow with you. History of Present Illness History of Present Illness Consult date: 09/05/22 Chief complaint: copd exacerbation Narrative: 09/05/2022: This is a new pulmonary consult for acute exacerbation of COPD. 81-year-old with a history of dementia, depression, anxiety, hypertension, hyperlipidemia, hypothyroidism, diabetes and COPD. Regarding her GOLD grade 2 group E COPD the patient has 116 pack year tobacco use quit in 2019, PFTs on 01/17/2019 with an FEV1 of 1.17 L, 64% predicted, air trapping, hyperinflation, no bronchodilator response and a DLCO that normalized for lung volume. She needed no oxygen on home O2 assessment on 04/28/2022 and no oxygen per overnight oximetry on 10/13/2021. Patient has no evidence of hypercarbic respiratory failure with a blood gas of 7.41/38/78 on 12/08/2021. Patient is followed in the pulmonary clinic and was last seen on 05/25/2022 and was maintained on breztri with a CAT score that had improved from 20/7 to a value of 21. Daliresp was to be started at a lower dose as she had GI issues with diarrhea on 500 q.day. Patient also has allergic rhinitis on Flonase and Astelin. She has bronchiectasis on her CT scan and was on an acapella valve. At baseline patient uses a walker and she can walk across the room and then has to stop for balance issues, knee pain as well as breathing issues. Patient presented to the emergency department on 08/30/2022 with cough, shortness of breath, wheezes. Room air saturations were 98%. White blood cell count was 13.2 with 0.8% eosinophil
[2022-09-05 17:31] LABS: Glucose Point of Care 231 mg/dl (65-105)
[2022-09-05] MEDS: PRAMIPEXOLE 0.25 MG TABLET PO (17:56)
[2022-09-05 20:35] LABS: Glucose Point of Care 291 mg/dl (65-105)
[2022-09-05] MEDS: ARIPiprazole 2 MG TABLET PO (21:07)
[2022-09-05] MEDS: PREGABALIN (*CRX) 50 MG CAPSULE PO (21:07)
--- NOTE | 2022-09-05 21:54 | PC.NURSE ---
Pt is refusing IV antibiotics and IV access at this time, pt was educated on importance of IV access in the hospital setting and IV antibiotics. Esther Ledesma notified, IV antibiotics changed to PO and IV access removed.
[2022-09-05] MEDS: AZITHROMYCIN 250 MG TABLET PO (23:19)
[2022-09-06] VITALS (18 sets, daily range): BP systolic 114–161; BP diastolic 56–66; PULSE 75–104; RESP 16–18; TEMP 36.2–37; O2SAT 93–96
[2022-09-06] MEDS: IPRATROPIUM BR 0.02% INH SOLN 0.5 MG/2.5 ML VIAL INHALATION ×6 (00:05→20:30)
[2022-09-06] MEDS: ALBUTEROL SULFATE NEB 2.5 MG/3 ML INH INHALATION ×6 (00:05→20:31)
[2022-09-06 02:24] LABS: Glucose Point of Care 165 mg/dl (65-105)
[2022-09-06 05:37] LABS: Basophils Absolute Auto 0.1 K/mm3 (0.0-0.1); Basophils Percent Auto 0.7 % (0.2-1.2); Eosinophils Absolute Auto 0.1 K/mm3 (0-0.3); Eosinophils Percent Auto 1.1 % (0-4.4); Hematocrit 37.8 % (37.0-47.0); Hemoglobin 12.3 g/dL (12.0-15.0); Immature Granulocyte Absolute 0.22 K/mm3 (0.00-0.031); Immature Granulocyte Percent A 1.8 % (0-0.5); Lymphocytes Absolute Auto 3.98 K/mm3 (0.9-3.2); Lymphocytes Percent Auto 32.2 % (18.3-44.2); Mean Corpuscular HGB Conc 32.5 g/dl (32-36); Mean Corpuscular Hemoglobin 29.9 pg (26-34); Mean Corpuscular Volume 91.7 fl (80-100); Mean Platelet Volume 9.8 fl (7.4-10.4); Monocytes Absolute Auto 1.1 K/mm3 (0.1-0.6); Monocytes Percent Auto 9.1 % (2.6-8.5); Neutrophils Absolute Auto 6.8 K/mm3 (1.3-6.7); Neutrophils Percent Auto 55.1 % (45.5-73.1); Platelet Count Result 214 k/mm3 (150-375); Red Blood Count 4.12 M/mm3 (4.2-5.4); Red Cell Distribution Width 13.4 % (11.5-14.5); White Blood Count 12.4 K/mm3 (4.5-10.0)
[2022-09-06 05:55] LABS: Alanine Aminotransferase 21 U/L (6-35); Albumin Level 3.7 g/dL (3.5-5.1); Alkaline Phosphatase 77 U/L (38-126); Anion Gap 7 mmol/L (8-16); Aspartate Amino Transferase 20 U/L (14-36); Bilirubin,Total 0.5 mg/dL (0.2-1.3); Blood Urea Nitrogen 20 mg/dL (7-17); CRP 2.6 mg/dL (<1.0); Calcium 8.8 mg/dL (8.4-10.2); Carbon Dioxide 27 mmol/L (22-30); Chloride 104 mmol/L (98-107); Estimated CRCL calculation 59 ml/min; Estimated Glomerular Filt Rate > 60; Glucose 175 mg/dL (65-110); Magnesium 2.1 mg/dL (1.6-2.3); Potassium 3.8 mmol/L (3.4-5.0); Sodium 138 mmol/L (137-145)
[2022-09-06 08:12] LABS: Glucose Point of Care 213 mg/dl (65-105)
[2022-09-06] MEDS: guaiFENesin 12 HR 600 MG TABCR 1200 MG PO ×2 (08:23→21:29)
[2022-09-06] MEDS: NEBIVOLOL HCL 5 MG TABLET 10 MG PO (08:23)
[2022-09-06] MEDS: predniSONE 20 MG TABLET 40 MG PO (08:24)
[2022-09-06] MEDS: MEMANTINE 5 MG TABLET PO ×2 (08:24→17:15)
[2022-09-06] MEDS: SERTRALINE HCL 50 MG TABLET 200 MG PO (08:24)
[2022-09-06] MEDS: EMPAGLIFLOZIN 25 MG TABLET PO (08:25)
[2022-09-06] MEDS: MELOXICAM 7.5 MG TABLET PO (08:25)
[2022-09-06] MEDS: AZELASTINE HCL NASAL 0.1% 137 MCG/SPR 30 ML BTL 1 SPRAY NASAL ×2 (08:25→21:29)
[2022-09-06] MEDS: AZITHROMYCIN 250 MG TABLET PO (08:25)
[2022-09-06] MEDS: ATORVASTATIN 10 MG TABLET PO (08:25)
[2022-09-06] MEDS: busPIRone HCL 5 MG TABLET 10 MG PO ×3 (08:25→17:14)
[2022-09-06] MEDS: ENOXAPARIN 40 MG/0.4 ML SYRINGE SUB-Q (08:30)
[2022-09-06] MEDS: INSULIN ASPART (*BKC) 100 UNITS/ML SUB-Q ×6 (08:31→17:17)
--- NOTE | 2022-09-06 08:55 | PM.PNPUL ---
Progress Note: A&P Assessment and Plan (1) Acute exacerbation of chronic obstructive pulmonary disease (COPD): Code(s): J44.1 - Chronic obstructive pulmonary disease with (acute) exacerbation Status: Acute Assessment and Plan: Regarding her GOLD grade 2 group E COPD the patient has 116 pack year tobacco use quit in 2019, PFTs on 01/17/2019 with an FEV1 of 1.17 L, 64% predicted, air trapping, hyperinflation, no bronchodilator response and a DLCO that normalized for lung volume. She needed no oxygen on home O2 assessment on 04/28/2022 and no oxygen per overnight oximetry on 10/13/2021. Patient has no evidence of hypercarbic respiratory failure with a blood gas of 7.41/38/78 on 12/08/2021. the patient was seen in the emergency department on 08/30 with an acute exacerbation of COPD and given outpatient prednisone which she failed and was admitted on 09/04 with worsening cough, dyspnea on exertion, wheezing, hypoxemia, increased phlegm production, change in phlegm to brown. She has a moderate COPD exacerbation. No evidence of pneumonia on her chest x-ray. Covid, RSV and influenza RT PCR studies are negative. Sputum and blood cultures are pending. 09/05 Currently the patient tells me she is 30% back to her normal and improved. She states that her cough is 95% resolved. Her wheezes or 50% resolved and she is breathing better. Her sputum has changed from brown to yellow to green color and there is decreased volume. Lower extremity Dopplers were negative for DVT. Echocardiogram demonstrated normal LVEF at 60-65%, grade 1 diastolic dysfunction, normal right atrial size, normal right ventricular size and function, PASP 35. Plan: At this time I will continue prednisone 40 mg p.o. Q day, I will increase the frequency of her albuterol and ipratropium nebulizers from q.6 hours to q.4 hours, I will add budesonide 0.5 mg b.i.d. and discontinue her trilogy as she is on maximal dose beta agonist, muscarinic antagonist and inhaled corticosteroid. She is on day 2 of azithromycin and I agree with continuation of this. Continue guaifenesin 1200 mg p.o. q.12 hours and I will also order a Cornet flutter valve to aid in sputum expectoration. Patient has home nebulizer that is broken and she will require a new nebulizer on discharge. She will need home O2 assessment an overnight oximetry evaluated prior to discharge. 09/06 Overall patient tells me she feels the same. She has been walking to the bathroom and states that her breathing on ambulation is better than when she arrived. She continues to have a cough and producing clear swell on. She is afebrile. Room air saturations 93-94%. White blood cell count 12.4, creatinine 0.7. She is using her Cornet flutter valve and expectorating phlegm. Plan: Patient continues to slowly improve and is walking with less shortness of breath. Continue prednisone 40 Q day (day 3 ), albuterol and ipratropium nebulizers q.4 hours. Continue azithromycin, day 3. Continue Mucinex 1200 mg p.o. q.12 hours and Cornet flutter valve. I will check an overnight oximetry on room air to assess her oxygenation at night and anticipation of possible discharge on 09/07. If the patient remains stable from a pulmonary perspective on 09/07 possible discharge home on these pulmonary medications: Prednisone 40 mg p.o. q.day, last dose 09/08. azithromycin 250 mg p.o. q.day, last dose 09/08 Jose Ri 190/9/4.8 at 2 puffs b.i.d. Rescue albuterol inhaler 2 puffs q.4 hours p.r.n. shortness of breath or wheezing Rescue albuterol nebulizer 2.5 mg q.4 hours p.r.n. shortness of breath or wheezing. Please order patient a new nebulizer on discharge oxygen at rest and at ambulation per home O2 assessment which I have ordered for 09/07 oxygen at night per home O2 assessment which I have ordered for tonight Discussed with Dr. Washington, will follow with you. Subjective Date/time seen: 09/06/22 08:55 Interval history:
[2022-09-06] MEDS: INSULIN GLARGINE (*BKC) 100 UNITS/ML 20 UNITS SUB-Q (10:51)
[2022-09-06 12:10] LABS: Glucose Point of Care 315 mg/dl (65-105)
--- NOTE | 2022-09-06 12:26 | PM.IMPN ---
Progress Note: A&P Assessment and Plan (1) Acute exacerbation of chronic obstructive pulmonary disease (COPD): Code(s): J44.1 - Chronic obstructive pulmonary disease with (acute) exacerbation Status: Acute Assessment and Plan: Patient presents with SOB and found to have a COPD exacerbation. LE venous dopplers negative for DVT. Speech therapy felt patient could swallow safely. Echo showing EF 60-65% with Grade I diastolic dysfunction. Clinically better. Pulmonary consulted (per pt request) and appreciate their input. Continue nebulizer treatments. Continue prednisone. Continue Azithromycin. Apnea link planned for tonight. Plan discharge tomorrow. (2) Pneumonia: Code(s): J18.9 - Pneumonia, unspecified organism Status: Acute Assessment and Plan: CXR on 08/30 was clear. Repeat CXR on this admission showing bronchiolitis vs PNA. Repeat COVID/RSV/Influenza negative. Probably PNA present on admission. Azithro was started. BCx NGTD. Repeat CXR showing right lower focal airspace disease c/w PNA. MRSA nasal swab pending. WBC trending down. Continue Azithro. (3) Type 2 diabetes mellitus with hyperglycemia: Qualifiers: Diabetes mellitus longterm insulin use: without continuous churn buttermaker use Qualified Code(s): E11.65 - Type 2 diabetes mellitus with hyperglycemia Code(s): E11.65 - Type 2 diabetes mellitus with hyperglycemia Status: Acute Assessment and Plan: A1c 10.4 in Jul. The patient's blood glucose was reviewed on 09/06 Glucose better overall Continue AccuCheks covering with sliding scale. Hypoglycemia protocol available as needed. Continue to monitor. Continue current treatment plan (4) Hypertension: Qualifiers: Hypertension type: essential hypertension Qualified Code(s): I10 - Essential (primary) hypertension Code(s): I10 - Essential (primary) hypertension Status: Chronic Assessment and Plan: Patient's blood pressure was reviewed on 09/06 Blood pressure remains well controlled. Will continue current medications. (5) Dementia: Code(s): F03.90 - Unspecified dementia, unspecified severity, without behavioral disturbance, psychotic disturbance, mood disturbance, and anxiety Status: Acute Assessment and Plan: Mood stable. Continue Namenda. Subjective Date/time seen: 09/06/22 12:26 Interval history: 81yo female with COPD, dementia, DM and HTN here for shortness of breath. Increased shortness of breath at night. Cough is better overall. Sputum now whitish color. She denies dyspnea on exertion when walking to the bathroom. Exam Narrative: AF 97.1 117/66 86 18 96% ra Gen - NARD sitting up in bed feeding herself Chest - bibasilar inspiratory crackles with scattered expiratory rhonchi CV - RRR. S1-S2. Abd - soft. NT/ND. Positive bowel sounds. No organomegaly or masses. Ext - no pedal edema. Psych - normal mood and affect. Skin - warm and dry. Objective Data Vital Signs Vital Signs: Vital Signs - 24 hr 09/05/22 13:55 09/05/22 14:07 09/05/22 14:09 Temperature 97.8 F Pulse Rate 78 77 80 Respiratory Rate 16 16 18 Blood Pressure 124/55 L Pulse Oximetry 96 Oxygen Delivery Fraction of Inspired Oxygen 09/05/22 20:00 09/05/22 20:11 09/05/22 20:17 Temperature Pulse Rate 78 78 76 Respiratory Rate 18 18 Blood Pressure Pulse Oximetry 95 Oxygen Delivery Room Air Fraction of Inspired Oxygen 09/05/22 23:30 09/06/22 00:05 09/06/22 00:15 Temperature 97.8 F Pulse Rate 85 86 81 Respiratory Rate 16 18 18 Blood Pressure 144/88 H Pulse Oximetry 94 Oxygen Delivery Fraction of Inspired Oxygen 09/05/22 21:50 09/06/22 04:26 09/06/22 04:37 Temperature Pulse Rate 79 77 Respiratory Rate 18 18 Blood Pressure Pulse Oximetry Oxygen Delivery Room Air Fraction of Inspired Oxygen 09/06/22 07:34 09/06/22 07:35 09/06/22 07:
[2022-09-06 16:59] LABS: Glucose Point of Care 231 mg/dl (65-105)
--- NOTE | 2022-09-06 17:02 | PC.NURSE ---
Diabetic education provided to pt and family. Written materials added to discharge paperwork and diabetic education booklet given as well. Importance of blood sugar checks and reducing carb intake, especially while on steroids provided. Pt verbalizes understanding, however pt has hx of dementia and requires assistance at home.
[2022-09-06] MEDS: PRAMIPEXOLE 0.25 MG TABLET PO (17:15)
[2022-09-06] MEDS: PREGABALIN (*CRX) 50 MG CAPSULE PO (21:29)
[2022-09-06] MEDS: ARIPiprazole 2 MG TABLET PO (21:29)
[2022-09-06 21:54] LABS: Glucose Point of Care 163 mg/dl (65-105)
--- NOTE | 2022-09-06 23:55 | PCRCNOTE ---
Pt prefers to hold off on apnea link at this time,only sleeps at small intervals and prefers not to miss Q4 tx
[2022-09-07] VITALS (13 sets, daily range): BP systolic 107; BP diastolic 64; PULSE 75–90; RESP 16–18; TEMP 36.6; O2SAT 82–97
[2022-09-07] MEDS: ACETAMINOPHEN 325 MG TABLET 650 MG PO (00:06)
[2022-09-07] MEDS: ALPRAZolam (*CRX) 0.125 MG TABLET PO (00:24)
[2022-09-07] MEDS: ALBUTEROL SULFATE NEB 2.5 MG/3 ML INH INHALATION ×4 (01:04→11:05)
[2022-09-07] MEDS: IPRATROPIUM BR 0.02% INH SOLN 0.5 MG/2.5 ML VIAL INHALATION ×4 (01:05→11:05)
[2022-09-07] MEDS: guaiFENesin/DEXTROMETHORPHAN 10 ML UDC 5 ML PO ×2 (02:33→12:48)
[2022-09-07 02:46] LABS: Glucose Point of Care 139 mg/dl (65-105)
[2022-09-07] MEDS: ATORVASTATIN 10 MG TABLET PO (09:38)
[2022-09-07] MEDS: guaiFENesin 12 HR 600 MG TABCR 1200 MG PO (09:38)
[2022-09-07] MEDS: MELOXICAM 7.5 MG TABLET PO (09:38)
[2022-09-07] MEDS: MEMANTINE 5 MG TABLET PO (09:38)
[2022-09-07] MEDS: busPIRone HCL 5 MG TABLET 10 MG PO ×2 (09:38→12:48)
[2022-09-07] MEDS: SERTRALINE HCL 50 MG TABLET 200 MG PO (09:38)
[2022-09-07] MEDS: predniSONE 20 MG TABLET 40 MG PO (09:38)
[2022-09-07] MEDS: NEBIVOLOL HCL 5 MG TABLET 10 MG PO (09:39)
[2022-09-07] MEDS: AZELASTINE HCL NASAL 0.1% 137 MCG/SPR 30 ML BTL 1 SPRAY NASAL (09:39)
[2022-09-07] MEDS: AZITHROMYCIN 250 MG TABLET PO (09:39)
[2022-09-07] MEDS: EMPAGLIFLOZIN 25 MG TABLET PO (09:39)
[2022-09-07] MEDS: INSULIN ASPART (*BKC) 100 UNITS/ML SUB-Q ×3 (09:43→12:49)
[2022-09-07] MEDS: INSULIN GLARGINE (*BKC) 100 UNITS/ML 20 UNITS SUB-Q (09:44)
[2022-09-07] MEDS: ENOXAPARIN 40 MG/0.4 ML SYRINGE SUB-Q (09:45)
--- NOTE | 2022-09-07 09:59 | PM.PNPUL ---
Progress Note: A&P Assessment and Plan (1) Acute exacerbation of chronic obstructive pulmonary disease (COPD): Code(s): J44.1 - Chronic obstructive pulmonary disease with (acute) exacerbation Status: Acute Assessment and Plan: Regarding her GOLD grade 2 group E COPD the patient has 116 pack year tobacco use quit in 2019, PFTs on 01/17/2019 with an FEV1 of 1.17 L, 64% predicted, air trapping, hyperinflation, no bronchodilator response and a DLCO that normalized for lung volume. She needed no oxygen on home O2 assessment on 04/28/2022 and no oxygen per overnight oximetry on 10/13/2021. Patient has no evidence of hypercarbic respiratory failure with a blood gas of 7.41/38/78 on 12/08/2021. the patient was seen in the emergency department on 08/30 with an acute exacerbation of COPD and given outpatient prednisone which she failed and was admitted on 09/04 with worsening cough, dyspnea on exertion, wheezing, hypoxemia, increased phlegm production, change in phlegm to brown. She has a moderate COPD exacerbation. No evidence of pneumonia on her chest x-ray. Covid, RSV and influenza RT PCR studies are negative. Sputum and blood cultures are pending. 09/05 Currently the patient tells me she is 30% back to her normal and improved. She states that her cough is 95% resolved. Her wheezes or 50% resolved and she is breathing better. Her sputum has changed from brown to yellow to green color and there is decreased volume. Lower extremity Dopplers were negative for DVT. Echocardiogram demonstrated normal LVEF at 60-65%, grade 1 diastolic dysfunction, normal right atrial size, normal right ventricular size and function, PASP 35. Plan: At this time I will continue prednisone 40 mg p.o. Q day, I will increase the frequency of her albuterol and ipratropium nebulizers from q.6 hours to q.4 hours, I will add budesonide 0.5 mg b.i.d. and discontinue her trilogy as she is on maximal dose beta agonist, muscarinic antagonist and inhaled corticosteroid. She is on day 2 of azithromycin and I agree with continuation of this. Continue guaifenesin 1200 mg p.o. q.12 hours and I will also order a Cornet flutter valve to aid in sputum expectoration. Patient has home nebulizer that is broken and she will require a new nebulizer on discharge. She will need home O2 assessment an overnight oximetry evaluated prior to discharge. 09/06 Overall patient tells me she feels the same. She has been walking to the bathroom and states that her breathing on ambulation is better than when she arrived. She continues to have a cough and producing clear swell on. She is afebrile. Room air saturations 93-94%. White blood cell count 12.4, creatinine 0.7. She is using her Cornet flutter valve and expectorating phlegm. Plan: Patient continues to slowly improve and is walking with less shortness of breath. Continue prednisone 40 Q day (day 3 ), albuterol and ipratropium nebulizers q.4 hours. Continue azithromycin, day 3. Continue Mucinex 1200 mg p.o. q.12 hours and Cornet flutter valve. I will check an overnight oximetry on room air to assess her oxygenation at night and anticipation of possible discharge on 09/07. 09/07 Overall patient states she is breathing better than when she arrived. She has been walking with less shortness of breath. She had a coughing fit in the middle of the night the lasted 15 minutes. Otherwise she has less phlegm production. Room air saturations 94%. She declined the apnea link because she wanted to receive her nebulizers at night. chest x-ray today with no active disease. From a pulmonary perspective patient can be discharged home on these pulmonary medications: Prednisone 40 mg p.o. q.day, last dose 09/08. Azithromycin 250 mg p.o. q.day, last dose 09/08 Isra 160/9/4.8 at 2 puffs b.i.d. Rescue albuterol inhaler 2 puffs q.4 hours p.r.n. shortness of breath or wheezing Rescue albuterol nebulizer 2.5 mg q.4 hours p.r.n. du
[2022-09-07 10:00] LABS: Glucose Point of Care 160 mg/dl (65-105)
[2022-09-07 10:00] LABS: Glucose Point of Care 315 mg/dl (65-105)
[2022-09-07 12:26] LABS: Glucose Point of Care 171 mg/dl (65-105)
--- NOTE | 2022-09-07 14:38 | PM.DS ---
DS: Admitting Diagnosis Discharge Date 09/07/22 Admitting Diagnosis sob DS: Discharge Diagnosis Discharge Diagnosis (1) Acute exacerbation of chronic obstructive pulmonary disease (COPD): Code(s): J44.1 - Chronic obstructive pulmonary disease with (acute) exacerbation Status: Acute Assessment and Plan: Patient presents with SOB and found to have a COPD exacerbation. LE venous dopplers negative for DVT. Speech therapy felt patient could swallow safely. Echo showing EF 60-65% with Grade I diastolic dysfunction. Clinically better. Pulmonary consulted (per pt request) and appreciate their input. Continue nebulizer treatments. Continue prednisone. Continue Azithromycin. Apnea link planned for tonight. Plan discharge tomorrow. (2) Pneumonia: Code(s): J18.9 - Pneumonia, unspecified organism Status: Acute Assessment and Plan: CXR on 08/30 was clear. Repeat CXR on this admission showing bronchiolitis vs PNA. Repeat COVID/RSV/Influenza negative. Probably PNA present on admission. Azithro was started. BCx NGTD. Repeat CXR showing right lower focal airspace disease c/w PNA. MRSA nasal swab pending. WBC trending down. Continue Azithro. (3) Type 2 diabetes mellitus with hyperglycemia: Qualifiers: Diabetes mellitus terminal computer operator insulin use: without terminal computer operator use Qualified Code(s): E11.65 - Type 2 diabetes mellitus with hyperglycemia Code(s): E11.65 - Type 2 diabetes mellitus with hyperglycemia Status: Acute Assessment and Plan: A1c 10.4 in Jul. The patient's blood glucose was reviewed on 09/06 Glucose better overall Continue AccuCheks covering with sliding scale. Hypoglycemia protocol available as needed. Continue to monitor. Continue current treatment plan (4) Hypertension: Qualifiers: Hypertension type: essential hypertension Qualified Code(s): I10 - Essential (primary) hypertension Code(s): I10 - Essential (primary) hypertension Status: Chronic Assessment and Plan: Patient's blood pressure was reviewed on 09/06 Blood pressure remains well controlled. Will continue current medications. (5) Dementia: Code(s): F03.90 - Unspecified dementia, unspecified severity, without behavioral disturbance, psychotic disturbance, mood disturbance, and anxiety Status: Acute Assessment and Plan: Mood stable. Continue Namenda. DS: Summary Hospital Course Hospital Course: 81-year-old female with COPD presenting with shortness of breath found to be in COPD exacerbation. She was started on steroids, breathing treatments, azithromycin. Pulmonology was consulted and did not think she had pneumonia. She was continued on albuterol and ipratropium nebulizers and budesonide was added. She was discharged in stable condition on the following medications per Pulmonary. Prednisone 40 mg p.o. q.day, last dose 09/08. Azithromycin 250 mg p.o. q.day, last dose 09/08 Isra 160/9/4.8? at 2 puffs b.i.d. Rescue albuterol inhaler 2 puffs q.4 hours p.r.n. shortness of breath or wheezing Rescue albuterol nebulizer 2.5 mg q.4 hours p.r.n. shortness of breath or wheezing.? Please order patient a new nebulizer on discharge. Benzonatate 200 mg PO TID PRN cough Oxygen at rest and at ambulation per home O2 assessment Room air at night See above for details. Time Spent with Patient Time attestation: Total time spent providing and/or coordinating discharge services: Exam Narrative: AF 97.1 117/66 86 18 96% ra Gen - NARD sitting up in bed feeding herself Chest - bibasilar inspiratory crackles with scattered expiratory rhonchi CV - RRR. S1-S2. Abd - soft. NT/ND. Positive bowel sounds. No organomegaly or masses. Ext - no pedal edema. Psych - normal mood and affect. Skin - warm and dry. DS: Data Data Completed and Pending Labs on day of discharge: Labs from last 24 hours 09/07/22 09/07/22 09/07/22 12:18 09:43 08:26
--- NOTE | 2022-09-07 15:50 | PCRCNOTE ---
HOME O2 EVAL COMPLETE. PATIENT DOES NOT REQUIRE HOME O2. RN NOTIFIED.
[2022-09-08 16:10] LABS: Pneumococcal Antigen Urine Not Detected (Not Detected)
[2022-09-10 02:18] LABS: Legionella pneumophila Ag Ur Not Detected (Not Detected)
== END 2022-09-07 15:40 | disposition home or self-care (01) ==
LOC: ANHED 07:25 → ANH2MED 09-05 05:38
PROVIDERS: Emergency Medicine; Family Medicine; Admitting Provider Internal Medicine; Emergency Provider Emergency Medicine; PCP Internal Medicine; Visit Provider Student in an Organized Health Care Education/Training Program
DX: J44.1 Chronic obstructive pulmonary disease with (acute) exacerbation (principal); J18.9 Pneumonia, unspecified organism; E11.65 Type 2 diabetes mellitus with hyperglycemia; I11.9 Hypertensive heart disease without heart failure; F41.9 Anxiety disorder, unspecified; F03.90 Unspecified dementia, unspecified severity, without behavioral disturbance, psychotic disturbance, mood disturbance, and anxiety; F32.A Depression, unspecified; Z20.822 Contact with and (suspected) exposure to COVID-19; E78.5 Hyperlipidemia, unspecified; I70.0 Atherosclerosis of aorta; M79.662 Pain in left lower leg; M79.661 Pain in right lower leg; E03.9 Hypothyroidism, unspecified; R91.8 Other nonspecific abnormal finding of lung field; R94.31 Abnormal electrocardiogram [ECG] [EKG]; Z98.890 Other specified postprocedural states; M19.90 Unspecified osteoarthritis, unspecified site; Z79.51 Long term (current) use of inhaled steroids; Z79.899 Other long term (current) drug therapy
CPT/HCPCS: 36415; 71045; 71046; 80048; 80053; 82948; 83735; 84484; 85025; 86140; 87040; 87070; 87077; 87081; 87185; 87205; 87449; 87637; 87899; 92610; 93005; 93306; 93970; 94618; 94640; 94667; 96365; 96366; 96367; 96372; 96375; 99285; A9270; G0378; J0456; J1650; J1815; J2930; J3475; J7030; J7512

== ENCOUNTER 2022-09-13 19:51 | Emergency (ER) | payer MEDICARE, SELFPAY ==
--- NOTE | ~2022-09-13 | XR_ITS ---
EXAMINATION: XR chest 2V DATE: 09/13/2022 22:29 INDICATION: Cough and fatigue TECHNIQUE: AP and lateral views of the chest are obtained. COMPARISON: 09/07/2022 FINDINGS: There are minimal bibasilar airspace opacities. Trace pleural effusions are present. There is no pneumothorax. The cardiomediastinal silhouette is normal. There is moderate thoracic spondylosi s. IMPRESSION: 1. Trace pleural effusions with mild bibasilar atelectasis. Reviewed, dictated and finalized at location F.
[2022-09-13 20:00] VITALS: BP 154/51; PULSE 99; RESP 19; TEMP 37.3; O2SAT 96
[2022-09-13 22:19] VITALS: PULSE 91
[2022-09-13 22:43] VITALS: PULSE 93; RESP 20; O2SAT 94
[2022-09-13 22:45] VITALS: BP 111/65; PULSE 98; RESP 22; O2SAT 96
--- NOTE | 2022-09-13 23:44 | ED.GENADULT ---
HPI - General Adult General Chief complaint: Unspecified Stated complaint: cough Time Seen by Provider: 09/13/22 23:16 History of Present Illness HPI narrative: Patient is 81-year-old female with history of COPD here due to vocal hoarseness. Patient states that she woke up with the hoarseness in her throat noted with speaking. She denies any sore throat, increased cough, shortness of breath, chest pain, fevers or chills. Patient states that she was admitted to the hospital last week for COPD exacerbation. She is improved from that standpoint. Has been compliant with her inhalers, antibiotics and steroids, finished up her course last week. Related Data Home Medications Medication Instructions Recorded Confirmed lansoprazole 15 mg capsule,delayed 15 mg PO DAILY PRN Abdominal 04/24/19 09/04/22 release Discomfort sertraline 100 mg tablet 200 mg PO DAILY 01/24/20 09/04/22 aripiprazole 2 mg tablet 2 mg PO QHS 08/25/21 09/04/22 buspirone 5 mg tablet 10 mg PO TID 08/25/21 09/04/22 memantine 5 mg tablet (Namenda) 5 mg PO BID 08/25/21 09/04/22 blood sugar diagnostic 09/21/21 09/05/22 blood-glucose meter 09/21/21 09/05/22 atorvastatin 10 mg tablet 10 mg PO DAILY 02/25/22 09/04/22 albuterol sulfate 90 mcg/actuation 2 inh inhalation Q4-6H PRN 09/04/22 09/04/22 aerosol inhaler Shortness Of Breath canagliflozin 300 mg tablet 300 mg PO DAILY 09/04/22 09/04/22 (Invokana) Allergies Allergy/AdvReac Type Severity Reaction Status Date / Time cephalexin Allergy Unknown Unknown Verified 09/13/22 22:31 ciprofloxacin Allergy Unknown Unknown Verified 09/13/22 22:31 clindamycin Allergy Unknown Unknown Verified 09/13/22 22:31 influenza virus vaccine, Allergy Unknown Swelling Verified 09/13/22 22:31 specific of Lip/Tongue/Throat Influenza Virus Vaccines Allergy Unknown Swelling Verified 09/13/22 22:31 of Lip/Tongue/Throat levofloxacin Allergy Unknown Unknown Verified 09/13/22 22:31 Penicillins Allergy Unknown Unknown Verified 09/13/22 22:31 pneumococcal vaccine Allergy Unknown Swelling Verified 09/13/22 22:31 of Lip/Tongue/Throat Sulfa (Sulfonamide Allergy Unknown Unknown Verified 09/13/22 22:31 Antibiotics) tetanus and diphtheria Allergy Unknown Swelling Verified 09/13/22 22:31 toxoids of Lip/Tongue/Throat tetanus immune globulin Allergy Unknown Swelling Verified 09/13/22 22:31 of Lip/Tongue/Throat Tetanus Vaccines and Toxoid Allergy Unknown Swelling Verified 09/13/22 22:31 of Lip/Tongue/Throat metformin AdvReac Diarrhea Verified 09/13/22 22:31 Review of Systems Review of Systems: Gen.: Denies fevers or chills Eyes: Denies eye pain or visual change ENT: Denies congestion Respiratory: Denies shortness of breath or cough CV: Denies chest pain or palpitations GI: Denies abdominal pain nausea, emesis or diarrhea denies burning, urgency, frequency or hematuria Musculoskeletal: Denies back pain or muscle pain Neuro: Denies numbness, tingling, weakness or focal weakness Skin: Denies rash Except as documented, all other systems reviewed and negative [facility] Past Medical History Medical History (Updated 09/14/22 @ 00:00 by Background Daemon) Anxiety Bladder cancer Chronic obstructive pulmonary disease Dementia Depression Hyperlipidemia Hypertension Hypothyroidism Osteoarthritis Seasonal allergies Type 2 diabetes mellitus Surgical History Surgical History History of bladder surgery (06/17/14) Transurethral resection of bladder tumor which showed noninvasive low-grade papillary urothelial carcinoma. History of cataract removal with insertion of prosthetic lens Family History Family History Mother Hypertension Patient's mother is Family history of thoracic aortic aneurysm Sibling Patient's sister is in good health Acute myocardial infarction
[2022-09-13 23:49] VITALS: BP 116/79; PULSE 78; RESP 13; O2SAT 98
== END 2022-09-13 23:50 | disposition home or self-care (01) ==
PROVIDERS: Emergency Provider Physician Assistant; PCP Internal Medicine
DX: J04.0 Acute laryngitis (principal); J44.9 Chronic obstructive pulmonary disease, unspecified; F03.90 Unspecified dementia, unspecified severity, without behavioral disturbance, psychotic disturbance, mood disturbance, and anxiety; E78.5 Hyperlipidemia, unspecified; I10 Essential (primary) hypertension; E11.9 Type 2 diabetes mellitus without complications; E03.9 Hypothyroidism, unspecified; M19.90 Unspecified osteoarthritis, unspecified site; F41.9 Anxiety disorder, unspecified; F32.A Depression, unspecified; Z85.51 Personal history of malignant neoplasm of bladder; Z98.49 Cataract extraction status, unspecified eye; Z96.1 Presence of intraocular lens; Z87.891 Personal history of nicotine dependence; Z79.4 Long term (current) use of insulin; Z79.84 Long term (current) use of oral hypoglycemic drugs
CPT/HCPCS: 71046; 99283

== ENCOUNTER 2022-09-20 05:20 | Emergency (ER) | payer MEDICARE, SELFPAY ==
--- NOTE | ~2022-09-20 | XR_ITS ---
EXAMINATION: XR chest 2V DATE: 09/20/2022 08:39 INDICATION: Shortness of breath and cough. TECHNIQUE: Frontal and lateral views of the chest were obtained on 3 radiographs. COMPARISON: Chest 2 views 09/13/2022, chest CT 01/24/2020 FINDINGS: A calcified left lung nodule is consistent with old granulomatous disease. There is mild sc arring at the lung bases. No pleural effusion or pneumothorax. The heart size is normal. IMPRESSION: 1. Mild scarring at the lung bases. Reviewed, dictated and finalized at location A.
[2022-09-20 05:38] VITALS: BP 125/57; PULSE 81; RESP 18; TEMP 36.2; O2SAT 94
--- NOTE | 2022-09-20 05:41 | PC.NURSE ---
called oswaldo, patients sister per request of patient, no answer and left message; [phone]
[2022-09-20 07:23] VITALS: PULSE 73; RESP 22; O2SAT 94
[2022-09-20 07:25] VITALS: PULSE 74
--- NOTE | 2022-09-20 07:29 | PC.NURSE ---
pt stated she did not want dominique in the room because she did not like you. pt refused to have iv or labs drawn. i dont want a needle stuck in me .
[2022-09-20 07:30] VITALS: O2SAT 94
--- NOTE | 2022-09-20 08:10 | PC.NURSE ---
pt pulled herself off hand riveter. when questioned why pt replied with why not, im here for breathing problems not my heart . pt proceeding to take off hospital gown and put her gown on.
--- NOTE | 2022-09-20 08:32 | PC.NURSE ---
pt requesting sister be contacted. pt spoke with ezra at [phone]. states will have cxr done because little sister demanded it.
--- NOTE | 2022-09-20 10:22 | ED.SOB ---
HPI - SOB/Dyspnea General Chief Complaint: Shortness of Breath/Dyspnea Stated Complaint: cough and short of breath, hx copd Time Seen by Provider: 09/20/22 08:14 Source: patient and RN notes reviewed Mode of arrival: ambulatory Limitations: no limitations History of Present Illness HPI Narrative: This is an 81 year old female with history of COPD who presents for evaluation of shortness of breath. PAtient states this morning she was having COPD episode with shortnes of breath. She states she had breathing treatment and she feels better. She states she is ready to go home and she does not need anything else. She denies chest pain, hemoptysis, fever, chills. She has cough with sputum. She does not want labs done but she is okay with chest xray. She denies edema at this time. Related Data Home Medications Medication Instructions Recorded Confirmed lansoprazole 15 mg capsule,delayed 15 mg PO DAILY PRN Abdominal 04/24/19 09/04/22 release Discomfort sertraline 100 mg tablet 200 mg PO DAILY 01/24/20 09/04/22 aripiprazole 2 mg tablet 2 mg PO QHS 08/25/21 09/04/22 buspirone 5 mg tablet 10 mg PO TID 08/25/21 09/04/22 memantine 5 mg tablet (Namenda) 5 mg PO BID 08/25/21 09/04/22 blood sugar diagnostic 09/21/21 09/05/22 blood-glucose meter 09/21/21 09/05/22 atorvastatin 10 mg tablet 10 mg PO DAILY 02/25/22 09/04/22 albuterol sulfate 90 mcg/actuation 2 inh inhalation Q4-6H PRN 09/04/22 09/04/22 aerosol inhaler Shortness Of Breath canagliflozin 300 mg tablet 300 mg PO DAILY 09/04/22 09/04/22 (Invokana) Allergies Allergy/AdvReac Type Severity Reaction Status Date / Time cephalexin Allergy Unknown Unknown Verified 09/13/22 22:31 ciprofloxacin Allergy Unknown Unknown Verified 09/13/22 22:31 clindamycin Allergy Unknown Unknown Verified 09/13/22 22:31 influenza virus vaccine, Allergy Unknown Swelling Verified 09/13/22 22:31 specific of Lip/Tongue/Throat Influenza Virus Vaccines Allergy Unknown Swelling Verified 09/13/22 22:31 of Lip/Tongue/Throat levofloxacin Allergy Unknown Unknown Verified 09/13/22 22:31 Penicillins Allergy Unknown Unknown Verified 09/13/22 22:31 pneumococcal vaccine Allergy Unknown Swelling Verified 09/13/22 22:31 of Lip/Tongue/Throat Sulfa (Sulfonamide Allergy Unknown Unknown Verified 09/13/22 22:31 Antibiotics) tetanus and diphtheria Allergy Unknown Swelling Verified 09/13/22 22:31 toxoids of Lip/Tongue/Throat tetanus immune globulin Allergy Unknown Swelling Verified 09/13/22 22:31 of Lip/Tongue/Throat Tetanus Vaccines and Toxoid Allergy Unknown Swelling Verified 09/13/22 22:31 of Lip/Tongue/Throat metformin AdvReac Diarrhea Verified 09/13/22 22:31 Review of Systems Constitutional: Constitutional: Denies weakness Cardiovascular: Cardiovascular: Denies syncope, Denies rapid heart rate, Denies irregular heart rhythm, Denies leg edema and Denies dyspnea Respiratory: Respiratory: Denies chest congestion, Reports cough, Denies hemoptysis, Denies excessive phlegm production and Reports dyspnea Gastrointestinal: Gastrointestinal: Denies abdominal pain, Denies hematochezia, Denies diarrhea and Denies vomiting Genitourinary: Genitourinary: Denies hematuria and Denies dysuria Musculoskeletal: Musculoskeletal: Denies joint swelling, Denies loss of height and Denies muscle weakness Neurologic: Denies syncope, Denies focal weakness and Denies weakness PMFSH Past Medical History Medical History Anxiety Bladder cancer Chronic obstructive pulmonary disease Dementia Depression Hyperlipidemia Hypertension Hypothyroidism Osteoarthritis Seasonal allergies Type 2 diabetes mellitus Surgical History Surgical History History of bladder surgery (06/17/14) Transurethral resection of bladder tumor which showed noninvasive low-grade papillary u
[2022-09-20 10:50] VITALS: BP 97/67; PULSE 75; RESP 20; O2SAT 94
== END 2022-09-20 10:50 | disposition home or self-care (01) ==
PROVIDERS: Emergency Provider General Practice; PCP Internal Medicine
DX: R06.00 Dyspnea, unspecified (principal); J44.9 Chronic obstructive pulmonary disease, unspecified; F03.90 Unspecified dementia, unspecified severity, without behavioral disturbance, psychotic disturbance, mood disturbance, and anxiety; E78.5 Hyperlipidemia, unspecified; E03.9 Hypothyroidism, unspecified; E11.9 Type 2 diabetes mellitus without complications; M19.90 Unspecified osteoarthritis, unspecified site; F32.A Depression, unspecified; F41.9 Anxiety disorder, unspecified; Z85.51 Personal history of malignant neoplasm of bladder; Z98.49 Cataract extraction status, unspecified eye; Z96.1 Presence of intraocular lens; Z87.891 Personal history of nicotine dependence; Z79.84 Long term (current) use of oral hypoglycemic drugs; Z79.4 Long term (current) use of insulin
CPT/HCPCS: 71046; 99283

== ENCOUNTER 2022-09-30 22:34 | Emergency (ER) | payer MEDICARE, SELFPAY ==
--- NOTE | ~2022-09-30 | XR_ITS ---
EXAMINATION: XR knee LT 3V DATE: 09/30/2022 23:06 INDICATION: Left knee pain TECHNIQUE: Three views of the left knee were obtained. COMPARISON: None. FINDINGS: Alignment is normal. No fracture or osteochondral lesion. There is mild to moderate tricomp artmental osteoarthritis of the knee. No joint effusion/synovitis. Soft tissues are unremarkable. IMPRESSION: 1. No acute osseous abnormality. Reviewed, dictated and finalized at location A.
[2022-09-30 22:39] VITALS: BP 116/99; PULSE 88; RESP 16; TEMP 36.4; O2SAT 95
--- NOTE | 2022-10-01 01:29 | ED.EXTPRO ---
HPI - Extremity Problem General Chief complaint: Extremity Problem,Nontraumatic Stated complaint: Left knee Time Seen by Provider: 10/01/22 01:15 Source: patient Mode of arrival: ambulatory Limitations: no limitations History of Present Illness HPI Narrative: This is a 81-year-old female with chronic knee pain who presents the ED via EMS for chief complaint of left knee pain. Patient reports her knee normally pops and feels better, but tonight it has not popped and it is hurting. Denies any new pattern of pain. Denies trauma or injury. Denies any further site of pain. Related Data Home Medications Medication Instructions Recorded Confirmed lansoprazole 15 mg capsule,delayed 15 mg PO DAILY PRN Abdominal 04/24/19 09/22/22 release Discomfort sertraline 100 mg tablet 200 mg PO DAILY 01/24/20 09/22/22 aripiprazole 2 mg tablet 2 mg PO QHS 08/25/21 09/22/22 buspirone 5 mg tablet 10 mg PO TID 08/25/21 09/22/22 blood sugar diagnostic 09/21/21 09/22/22 blood-glucose meter 09/21/21 09/22/22 atorvastatin 10 mg tablet 10 mg PO DAILY 02/25/22 09/22/22 albuterol sulfate 90 mcg/actuation 2 inh inhalation Q4-6H PRN 09/04/22 09/22/22 aerosol inhaler Shortness Of Breath canagliflozin 300 mg tablet 300 mg PO DAILY 09/04/22 09/22/22 (Invokana) memantine 5 mg tablet (Namenda) 10 mg PO BID 09/22/22 09/22/22 Allergies Allergy/AdvReac Type Severity Reaction Status Date / Time cephalexin Allergy Unknown Unknown Verified 09/30/22 22:36 ciprofloxacin Allergy Unknown Unknown Verified 09/30/22 22:36 clindamycin Allergy Unknown Unknown Verified 09/30/22 22:36 influenza virus vaccine, Allergy Unknown Swelling Verified 09/30/22 22:36 specific of Lip/Tongue/Throat Influenza Virus Vaccines Allergy Unknown Swelling Verified 09/30/22 22:36 of Lip/Tongue/Throat levofloxacin Allergy Unknown Unknown Verified 09/30/22 22:36 Penicillins Allergy Unknown Unknown Verified 09/30/22 22:36 pneumococcal vaccine Allergy Unknown Swelling Verified 09/30/22 22:36 of Lip/Tongue/Throat Sulfa (Sulfonamide Allergy Unknown Unknown Verified 09/30/22 22:36 Antibiotics) tetanus and diphtheria Allergy Unknown Swelling Verified 09/30/22 22:36 toxoids of Lip/Tongue/Throat tetanus immune globulin Allergy Unknown Swelling Verified 09/30/22 22:36 of Lip/Tongue/Throat Tetanus Vaccines and Toxoid Allergy Unknown Swelling Verified 09/30/22 22:36 of Lip/Tongue/Throat metformin AdvReac Diarrhea Verified 09/30/22 22:36 Review of Systems Review of Systems: CONSTITUTIONAL: Denies fever, chills, or sweats. SKIN: Denies rash or itching. MUSCULOSKELETAL: See HPI NEUROLOGIC: Denies headache, numbness, dizziness, or weakness. PSYCHIATRIC: Denies anxiety or depression. [facility] Past Medical History Medical History Anxiety Bladder cancer Chronic obstructive pulmonary disease Dementia Depression Hyperlipidemia Hypertension Hypothyroidism Osteoarthritis Seasonal allergies Type 2 diabetes mellitus Surgical History Surgical History History of bladder surgery (06/17/14) Transurethral resection of bladder tumor which showed noninvasive low-grade papillary urothelial carcinoma. History of cataract removal with insertion of prosthetic lens Family History Family History Mother Hypertension Patient's mother is Family history of thoracic aortic aneurysm Sibling Patient's sister is in good health Acute myocardial infarction TIA (transient ischemic attack) Father Family history of diabetes mellitus in first degree relative Family history of malignant neoplasm of brain, Onset Age: 85 Malignant neoplasm of prostate Bone tumor Father Diabetes mellitus Other Arthritis Brain cancer Social History Social History (Reviewed 09/21/22 @ 11:52 b
[2022-10-01] MEDS: HYDROcodone/acetaminophen (*CRX) 7.5-325 MG TABLET 1 TAB PO (01:53)
== END 2022-10-01 03:57 | disposition home or self-care (01) ==
PROVIDERS: Emergency Provider Physician Assistant; PCP Internal Medicine
DX: M17.12 Unilateral primary osteoarthritis, left knee (principal); F41.9 Anxiety disorder, unspecified; J44.9 Chronic obstructive pulmonary disease, unspecified; F03.90 Unspecified dementia, unspecified severity, without behavioral disturbance, psychotic disturbance, mood disturbance, and anxiety; E78.5 Hyperlipidemia, unspecified; I10 Essential (primary) hypertension; E03.9 Hypothyroidism, unspecified; E11.8 Type 2 diabetes mellitus with unspecified complications; Z87.891 Personal history of nicotine dependence; Z98.49 Cataract extraction status, unspecified eye; Z96.1 Presence of intraocular lens
CPT/HCPCS: 73562; 99283; A9270

== ENCOUNTER → 2022-10-31 13:23 | Outpatient (CLI) | payer MEDICARE, SELFPAY ==
--- NOTE | ~2022-10-31 | XR_ITS ---
EXAMINATION: XR chest 2V 10/31/2022 13:42 INDICATION: Abnormal lung sounds PROCEDURE: 2 view chest COMPARISON: Comparison to multiple prior studies sequentially, with oldest reviewed study dated 09/05. FINDINGS: The lungs are clear. The lungs are hyperinflated which is consistent with, but not diagnost ic of chronic obstructive pulmonary disease. The cardiomediastinal silhouette is within normal limits . There are no pleural effusions. There is no pneumothorax suspected. IMPRESSION: 1: NO ACUTE CARDIOPULMONARY DISEASE. Reviewed, dictated and finalized at location B.
== END ==
PROVIDERS: PCP Internal Medicine; Visit Provider Internal Medicine
DX: R09.89 Other specified symptoms and signs involving the circulatory and respiratory systems (principal); R50.9 Fever, unspecified
CPT/HCPCS: 71046

== ENCOUNTER 2023-02-03 10:21 | Outpatient (CLI) | payer MEDICARE, SELFPAY ==
--- NOTE | ~2023-02-03 | US_ITS ---
EXAMINATION: US soft tissue head and neck DATE: 02/03/2023 11:06 INDICATION: Localized swelling, mass and lump, neck. TECHNIQUE: Multiple grayscale and Doppler ultrasound images of the neck were obtained. COMPARISON: CT cervical spine 06/04/2021 FINDINGS: There is no abnormal mass or lymphadenopathy in the patient's area of concern in right post erior neck. IMPRESSION: 1. No abnormal mass or lymphadenopathy in the patient's area of concern in right posterior neck. Reviewed, dictated and finalized at location A. IMPRESSION: 1. No abnormal mass or lymphadenopathy in the patient's area of concern in righ t posterior neck.
== END 2023-02-03 10:22 | disposition home or self-care (01) ==
PROVIDERS: PCP Internal Medicine; Visit Provider Nurse Practitioner
DX: R22.1 Localized swelling, mass and lump, neck (principal)
CPT/HCPCS: 76536

== ENCOUNTER → 2023-02-08 11:29 | Outpatient (CLI) | payer MEDICARE, SELFPAY ==
--- NOTE | ~2023-02-08 | US_ITS ---
EXAMINATION:US venous doppler LE RT INDICATION:Lower extremity swelling TECHNIQUE: Multiple grayscale, color flow and Doppler images of the right lower extremity deep venous systems were obtained and reviewed. COMPARISON:09/05/2022 FINDINGS: The common femoral, superficial femoral and popliteal veins demonstrate normal respiratory variation, augmentation and compressibility. Color flow is also seen within the posterior tibial, pe roneal, greater saphenous and profunda veins. IMPRESSION: 1: No lower extremity deep venous thrombosis. Reviewed, dictated and finalized at location B.
== END ==
PROVIDERS: PCP Internal Medicine; Visit Provider Nurse Practitioner
DX: M79.89 Other specified soft tissue disorders (principal)
CPT/HCPCS: 93971

== ENCOUNTER 2023-02-21 13:24 | Emergency (ER) | payer MEDICARE, SELFPAY ==
[2023-02-21] VITALS (15 sets, daily range): BP systolic 110–157; BP diastolic 50–80; PULSE 66–82; RESP 13–22; TEMP 36.2; O2SAT 92–96
--- NOTE | ~2023-02-21 | US_ITS ---
EXAMINATION: US venous doppler LE BI DATE: 02/21/2023 20:55 INDICATION: bilateral LE swelling . TECHNIQUE: Grayscale images without and with compression and Doppler images of the bilateral lower ex tremity veins were obtained. COMPARISON: 02/08/2023 FINDINGS: The right common femoral vein, profunda (deep) femoral vein, femoral vein, popliteal vein, peroneal v ein, posterior tibial veins, gastrocnemius vein, and greater saphenous vein are patent. The left common femoral vein, profunda (deep) femoral vein, femoral vein, popliteal vein, peroneal v ein, posterior tibial veins, gastrocnemius vein, and greater saphenous vein are patent. IMPRESSION: Patent bilateral lower extremity veins. No evidence of deep venous thrombosis. Reviewed, dictated and finalized at location K.
--- NOTE | ~2023-02-21 | XR_ITS ---
EXAMINATION: XR chest 1V Exam Date/Time: 02/21/2023 20:40 CDT HISTORY: LE swelling HX COPD, HTN Comparison: 10/31/2022. RESULT: Lines, tubes, and devices: None. Lungs and pleura: Senescent changes, otherwise clear. Cardiomediastinal silhouette: Stable. Other: No acute osseous or upper abdominal finding. IMPRESSION: No acute cardiopulmonary process. Reviewed, dictated and finalized at location K.
--- NOTE | ~2023-02-21 | CT_ITS ---
EXAMINATION: CTA abd aorta runoff DATE: 02/21/2023 21:04 INDICATION: R groin pain, Capillar refill 4 seconds b/l LEs. TECHNIQUE: Computed tomography (CT) of the abdomen and pelvis was performed with 100 mL Omnipaque-350 intravenous contrast, in the arterial phase. 3-D volumetric images were created by the technologist on a separate workstation. Automated exposure control and iterative reconstruction technique were emp loyed. The dose-length product was 1648.73 mGy-cm. COMPARISON: CT cap 01/24/2020. FINDINGS: Lower thorax: Unremarkable Liver: Steatosis. Granulomatous calcification. Biliary/Gallbladder: Cholelithiasis, without inflammatory changes. No bile duct dilation. Pancreas: No mass or duct dilation. Spleen: Granulomatous calcification. Adrenals:No mass. Kidneys: No mass, stone, or hydronephrosis. GI tract: No small or large bowel dilation. Normal appendix. Diverticulosis without diverticulitis. Mesentery/Peritoneum: No ascites, mass, or free air. Retroperitoneum: No mass. Pelvis: Distended urinary bladder. Pelvic organs are otherwise within normal limits. Soft Tissues: Bilateral subcutaneous edema in the lower extremities. Bones: No acute osseous finding. Abdominal aorta: Moderate atherosclerotic calcification. Severe stenosis of the celiac axis origin. M ild calcifications without significant stenosis at the origins of the remaining major branch vessels. Mild fusiform dilation of the distal aorta up to 2.3 cm. Moderate atherosclerotic calcification of t he bilateral common iliac arteries without significant stenosis. Patent internal iliac vessels. Bilateral lower extremity arteries: Mild atherosclerotic calcifications in the arteries of the bilate ral lower extremity. Patent bilateral trifurcations. 2 vessel flow below the level of the ankle in noemi th lower extremities. IMPRESSION: Cholelithiasis without cholecystitis. Distended urinary bladder, correlate with clinical findings of urinary retention. Severe celiac artery origin stenosis. No significant arterial stenosis noted in the lower extremity arteries. There is 2 vessel flow below the level of the ankles bilaterally. Reviewed, dictated and finalized at location K. IMPRESSION: Cholelithiasis without cholecystitis. Distended urinary bladder, correlate with clinical findings of urinary retentio n. Severe celiac artery origin stenosis. No significant arterial stenosis noted in the lower extremity arteries. There i s 2 vessel flow below the level of the ankles bilaterally.
--- NOTE | 2023-02-21 19:23 | ECG_ITS ---
Measurements Intervals [place] Rate: 70 P: 76 FL: 168 QRS: -47 QRSD: 88 T: 72 QT: 407 QTc: 441 Interpretive Statements SINUS RHYTHM LEFT ANTERIOR FASCICULAR BLOCK BASELINE ARTIFACT- I, II, AVR, AVL, AVF, V5-V6 ABNORMAL ECG COMPARED TO ECG 09/04/2022 05:05:57 NO SIGNIFICANT CHANGES Electronically Signed On 02-22-2023 8:10:51 CDT by Parish Del Valle D.O.
--- NOTE | 2023-02-21 19:32 | ED.EXTPRO ---
HPI - Extremity Problem General Chief complaint: Extremity Problem,Nontraumatic Stated complaint: LOWER EXT SWELLING Time Seen by Provider: 02/21/23 19:08 Source: patient and family Limitations: no limitations History of Present Illness HPI Narrative: Patient presents to the emergency department is an 82-year-old female for bilateral lower extremity swelling. Patient states she noticed the swelling over the past couple days and has been progressively getting worse and denies any history of the swelling in the past. Patient notes that she has compression stockings coming in the mail but otherwise has been elevating her lower extremities. Patient denies history of blood clots. Patient denies chest pain, shortness of breath, recent injuries, recent illness, difficulty urinating, dysuria, hematuria, nausea, vomiting, diarrhea, numbness, weakness, back pain, rash. Patient denies any history of heart disease or use of diuretics. Patient denies seeing a heart doctor in the past. Patient does admit to having an ultrasound performed in late January of her right lower extremity that was negative for blood clots. Patient denies cough, fever, sore throat. Patient states that she had physical therapy performed about 2 weeks ago on her lower extremities as she has been chronically weak and she feels like there was a tweak at that time when she was doing her exercises and its been painful in her right groin ever since. Related Data Home Medications Medication Instructions Recorded Confirmed sertraline 100 mg tablet 200 mg PO DAILY 01/24/20 02/28/23 aripiprazole 2 mg tablet 2 mg PO QHS 08/25/21 02/28/23 buspirone 5 mg tablet 10 mg PO TID 08/25/21 01/18/23 blood sugar diagnostic 09/21/21 02/28/23 blood-glucose meter 09/21/21 02/28/23 albuterol sulfate 90 mcg/actuation 1 - 2 inh inhalation Q4-6H PRN 01/13/23 02/28/23 aerosol inhaler Shortness Of Breath fluticasone propionate 50 1 spray intranasal BID PRN nasal 01/13/23 02/28/23 mcg/actuation nasal congestion spray,suspension Allergies Allergy/AdvReac Type Severity Reaction Status Date / Time cephalexin Allergy Unknown Unknown Verified 02/28/23 14:00 ciprofloxacin Allergy Unknown Unknown Verified 02/28/23 14:00 clindamycin Allergy Unknown Unknown Verified 02/28/23 14:00 influenza virus vaccine, Allergy Unknown Swelling Verified 02/28/23 14:00 specific of Lip/Tongue/Throat Influenza Virus Vaccines Allergy Unknown Swelling Verified 02/28/23 14:00 of Lip/Tongue/Throat levofloxacin Allergy Unknown Unknown Verified 02/28/23 14:00 Penicillins Allergy Unknown Unknown Verified 02/28/23 14:00 pneumococcal vaccine Allergy Unknown Swelling Verified 02/28/23 14:00 of Lip/Tongue/Throat Sulfa (Sulfonamide Allergy Unknown Unknown Verified 02/28/23 14:00 Antibiotics) tetanus and diphtheria Allergy Unknown Swelling Verified 02/28/23 14:00 toxoids of Lip/Tongue/Throat tetanus immune globulin Allergy Unknown Swelling Verified 02/28/23 14:00 of Lip/Tongue/Throat Tetanus Vaccines and Toxoid Allergy Unknown Swelling Verified 02/28/23 14:00 of Lip/Tongue/Throat metformin AdvReac Diarrhea Verified 02/28/23 14:00 Review of Systems Review of Systems: A 10 system review of systems was completed on the patient and is negative except for what is stated in the HPI. Nursing and ancillary documentation was reviewed. [facility] Past Medical History Medical History Anxiety Bladder cancer Chronic obstructive pulmonary disease Dementia Depression Hyperlipidemia Hypertension Hypothyroidism Osteoarthritis Seasonal allergies Type 2 diabetes mellitus Surgical History Surgical History History of bladder surgery (06/17/14) Transurethral resection of bladder tumor which showed noninvasive low-grade papillary urothelial carcinoma. Histo
[2023-02-21 19:57] LABS: Appearance Urine Clear (Clear); Bacteria Urine 1+ /hpf; Bilirubin Urine Negative (Negative); Blood Urine 1+ (Negative); Color Urine Yellow (Yellow); Glucose Urine UA 3+ mg/dL (Negative); Ketones Urine Negative (Negative); Leukocyte Esterase Ur 2+ LEU/UL (Negative); Nitrate Urine Negative (Negative); Non Pathogenic Casts 0-2; Protein Urine Negative (Negative); RBC Urine 0-2 /hpf (0-2); Specific Grav Ur 1.026 (1.001-1.035); Squamous Epithelial Cell Urine Occasional /hpf (Few); Urobilinogen Urine 0.2 mg/dL (<2.0); WBC Urine 21-50 /hpf
[2023-02-21] MEDS: HYDROcodone/acetaminophen (*CRX) 5-325 MG TABLET 1 TAB PO (20:01)
[2023-02-21 20:08] LABS: Add Urine Microscopic? YES
[2023-02-21 20:13] LABS: Basophils Percent Auto 0.5 % (0.2-1.2); Eosinophils Absolute Auto 0.2 K/mm3 (0-0.3); Eosinophils Percent Auto 2.8 % (0-4.4); Hematocrit 45.6 % (37.0-47.0); Hemoglobin 14.5 g/dL (12.0-15.0); Immature Granulocyte Absolute 0.04 K/mm3 (0.00-0.031); Immature Granulocyte Percent A 0.5 % (0-0.5); Lymphocytes Absolute Auto 2.85 K/mm3 (0.9-3.2); Lymphocytes Percent Auto 32.9 % (18.3-44.2); Mean Corpuscular HGB Conc 31.8 g/dl (32-36); Mean Corpuscular Hemoglobin 30.3 pg (26-34); Mean Corpuscular Volume 95.4 fl (80-100); Mean Platelet Volume 9.7 fl (7.4-10.4); Monocytes Absolute Auto 0.9 K/mm3 (0.1-0.6); Monocytes Percent Auto 9.8 % (2.6-8.5); Neutrophils Absolute Auto 4.6 K/mm3 (1.3-6.7); Neutrophils Percent Auto 53.5 % (45.5-73.1); Platelet Count Result 176 k/mm3 (150-375); Red Blood Count 4.78 M/mm3 (4.2-5.4); Red Cell Distribution Width 13.8 % (11.5-14.5); White Blood Count 8.7 K/mm3 (4.5-10.0)
[2023-02-21 20:28] LABS: Alanine Aminotransferase 22 U/L (6-35); Albumin Level 4.5 g/dL (3.5-5.1); Alkaline Phosphatase 59 U/L (38-126); Anion Gap 6 mmol/L (8-16); Aspartate Amino Transferase 25 U/L (14-36); Bilirubin,Total 0.6 mg/dL (0.2-1.3); Blood Urea Nitrogen 22 mg/dL (7-17); Carbon Dioxide 31 mmol/L (22-30); Chloride 101 mmol/L (98-107); Estimated CRCL calculation 60 ml/min; Estimated Glomerular Filt Rate > 60; Glucose 115 mg/dL (65-110); Potassium 4.3 mmol/L (3.4-5.0); Sodium 138 mmol/L (137-145)
[2023-02-21 20:31] LABS: Prothrombin Time 13.2 Seconds (11.1-14.7)
[2023-02-21 20:32] LABS: Partial Thromboplastin Time 24.2 SECONDS (22.3-36.8)
[2023-02-21 20:39] LABS: NT Pro B Type Natriuretic Pept 187 pg/mL (19.9-100); Troponin I < 0.012 ng/mL (0.000-0.034)
[2023-02-21] MEDS: NITROFURANTOIN MONOHYD MACROCR 100 MG CAP PO (23:15)
--- NOTE | 2023-02-21 23:32 | PC.NURSE ---
pt report and care given to ZARINA Walker. all questions answered.
== END 2023-02-21 23:34 | disposition home or self-care (01) ==
PROVIDERS: Emergency Provider Student in an Organized Health Care Education/Training Program; PCP Internal Medicine
DX: R60.0 Localized edema (principal); N39.0 Urinary tract infection, site not specified; F03.90 Unspecified dementia, unspecified severity, without behavioral disturbance, psychotic disturbance, mood disturbance, and anxiety; J44.9 Chronic obstructive pulmonary disease, unspecified; E78.5 Hyperlipidemia, unspecified; I10 Essential (primary) hypertension; E03.9 Hypothyroidism, unspecified; E11.9 Type 2 diabetes mellitus without complications; Z85.51 Personal history of malignant neoplasm of bladder; Z87.891 Personal history of nicotine dependence
CPT/HCPCS: 36415; 71045; 75635; 80053; 81001; 83735; 83880; 84443; 84484; 85025; 85610; 85730; 87086; 87088; 93005; 93970; 99284; A9270; Q9967

== ENCOUNTER 2023-10-10 11:24 | Emergency (ER) | payer MEDICARE, SELFPAY ==
--- NOTE | ~2023-10-10 | XR_ITS ---
XR knee LT 3V 10/10/2023 13:26 Indication: Left knee pain and swelling Procedure: 3 views left knee Comparison: No prior studies for comparison. Findings: There is moderate osteoarthritis of the left knee. No fracture, subluxation or dislocation. No joint effusion. No foreign bodies. Impression: 1: Moderate osteoarthritis of the left knee. Reviewed, dictated and finalized at location B. Impression: 1: Moderate osteoarthritis of the left knee.
--- NOTE | ~2023-10-10 | US_ITS ---
EXAMINATION: US venous doppler [facility] DATE: 10/10/2023 13:45 INDICATION: Left lower limb swelling and pain. TECHNIQUE: Grayscale ultrasound images without and with compression and Doppler ultrasound images of the left lower extremity veins were obtained. COMPARISON: Ultrasound 02/21/2023 FINDINGS: The visualized portions of left common femoral vein, profunda (deep) femoral vein, femoral vein, popl iteal vein, peroneal veins, posterior tibial veins, and greater saphenous vein outflow are patent. IMPRESSION: 1. No deep venous thrombosis. Reviewed, dictated and finalized at location E.
[2023-10-10 11:31] VITALS: BP 133/78; PULSE 84; RESP 16; TEMP 36.5; O2SAT 96
--- NOTE | 2023-10-10 12:07 | ED.EXTPRO ---
HPI - Extremity Problem General Chief complaint: Extremity Problem,Nontraumatic Stated complaint: leg pain Time Seen by Provider: 10/10/23 11:59 History of Present Illness HPI Narrative: Patient is an 82 year old female with history of anxiety, depression, COPD, HLD, HTN, OA here with left leg pain. She notes she lives in chronic pain in her bilateral knees due to arthritis. She states that yesterday the pain significantly worsened and begins in her left knee shooting downward towards her left foot. She denies any recent falls, no recent increase in physical activity. She uses a walker and wheelchair at baseline, lives at assisted living facility. She denies any associated chest pain, shortness of breath. No history of PE or DVT. She denies any leg redness, fever, chills. No additional complaints. Related Data Home Medications Medication Instructions Recorded Confirmed sertraline 100 mg tablet 200 mg PO DAILY 01/24/20 07/24/23 aripiprazole 2 mg tablet 2 mg PO QHS 08/25/21 07/24/23 buspirone 5 mg tablet 10 mg PO TID 08/25/21 07/24/23 blood sugar diagnostic 09/21/21 07/24/23 blood-glucose meter 09/21/21 07/24/23 fluticasone propionate 50 1 spray intranasal BID PRN nasal 01/13/23 07/24/23 mcg/actuation nasal congestion spray,suspension Allergies Allergy/AdvReac Type Severity Reaction Status Date / Time cephalexin Allergy Unknown Unknown Verified 10/10/23 11:37 ciprofloxacin Allergy Unknown Unknown Verified 10/10/23 11:37 clindamycin Allergy Unknown Unknown Verified 10/10/23 11:37 influenza virus vaccine, Allergy Unknown Swelling Verified 09/14/23 10:07 specific of Lip/Tongue/Throat Influenza Virus Vaccines Allergy Unknown Swelling Verified 10/10/23 11:37 of Lip/Tongue/Throat levofloxacin Allergy Unknown Unknown Verified 10/10/23 11:37 Penicillins Allergy Unknown Unknown Verified 10/10/23 11:37 pneumococcal vaccine Allergy Unknown Swelling Verified 10/10/23 11:37 of Lip/Tongue/Throat Sulfa (Sulfonamide Allergy Unknown Unknown Verified 10/10/23 11:37 Antibiotics) tetanus and diphtheria Allergy Unknown Swelling Verified 10/10/23 11:37 toxoids of Lip/Tongue/Throat tetanus immune globulin Allergy Unknown Swelling Verified 10/10/23 11:37 of Lip/Tongue/Throat Tetanus Vaccines and Toxoid Allergy Unknown Swelling Verified 10/10/23 11:37 of Lip/Tongue/Throat metformin AdvReac Diarrhea Verified 10/10/23 11:37 Review of Systems Review of Systems: All systems reviewed & are unremarkable except as noted in HPI and below PMFSH Past Medical History Medical History (Updated 10/10/23 @ 14:09 by Willow Solano MD) Anxiety Bladder cancer Chronic obstructive pulmonary disease Dementia Depression Fever Hyperlipidemia Hypertension Hypothyroidism Localized swelling, mass and lump, neck Osteoarthritis Pneumonia Seasonal allergies Shingles Type 2 diabetes mellitus Surgical History Surgical History History of bladder surgery (06/17/14) Transurethral resection of bladder tumor which showed noninvasive low-grade papillary urothelial carcinoma. History of cataract removal with insertion of prosthetic lens Family History Family History Mother Hypertension Patient's mother is Family history of thoracic aortic aneurysm Sibling Patient's sister is in good health Acute myocardial infarction TIA (transient ischemic attack) Father Family history of diabetes mellitus in first degree relative Family history of malignant neoplasm of brain, Onset Age: 85 Malignant neoplasm of prostate Bone tumor Father Diabetes mellitus Other Arthritis Brain cancer Social History Social History Social History: Surrogate medical decision maker: Kristine Kirkpatrick status: Full code. Smo
[2023-10-10] MEDS: IBUPROFEN 600 MG TABLET PO (13:10)
--- NOTE | 2023-10-10 14:46 | PC.NURSE ---
Pt going back to [place] via personal vehicle.
== END 2023-10-10 14:46 ==
PROVIDERS: Emergency Provider Student in an Organized Health Care Education/Training Program; PCP Internal Medicine
DX: M17.0 Bilateral primary osteoarthritis of knee (principal); J44.9 Chronic obstructive pulmonary disease, unspecified; I10 Essential (primary) hypertension; E78.5 Hyperlipidemia, unspecified; E11.9 Type 2 diabetes mellitus without complications; E03.9 Hypothyroidism, unspecified; F41.9 Anxiety disorder, unspecified; Z85.51 Personal history of malignant neoplasm of bladder; Z87.01 Personal history of pneumonia (recurrent); Z87.891 Personal history of nicotine dependence; Z96.1 Presence of intraocular lens; Z98.49 Cataract extraction status, unspecified eye; Z79.4 Long term (current) use of insulin
CPT/HCPCS: 73562; 93971; 99284; A9270

== ENCOUNTER 2023-10-17 10:40 | Inpatient (IN) | payer MEDICARE, SELFPAY ==
[2023-10-17] VITALS (16 sets, daily range): BP systolic 106–131; BP diastolic 47–64; PULSE 81–98; RESP 16–94; TEMP 35.8–37.1; O2SAT 20–96
--- NOTE | ~2023-10-17 | XR_ITS ---
XR chest 2V 10/17/2023 11:56 Indication: Shortness of breath and cough Procedure: 2 view chest Comparison: Comparison to multiple prior studies sequentially, with oldest reviewed study dated 09/13. Findings: Patchy bilateral airspace disease, compatible with pneumonia. No pleural effusion. No pneum othorax. Heart size normal. Impression: 1: Patchy bilateral pneumonia. Reviewed, dictated and finalized at location B. Impression: 1: Patchy bilateral pneumonia.
--- NOTE | ~2023-10-17 | XR_ITS ---
EXAMINATION: XR chest 1V portable DATE: 10/22/2023 15:14 INDICATION: Shortness of breath TECHNIQUE: AP view of the chest was obtained. COMPARISON: Chest radiograph dated 10/17/2023 FINDINGS: Slight improvement in airspace opacities in bilateral lower lung zones. No pleural effusion or pneumo thorax. Calcified nodule at the left lung base consistent with old granulomatous disease. Heart size is normal. IMPRESSION: 1. Slight decrease in opacities at the bilateral lower lung zones which could represent improving pne umonia or atelectasis. Reviewed, dictated and finalized at location A. IMPRESSION: 1. Slight decrease in opacities at the bilateral lower lung zones which could r epresent improving pneumonia or atelectasis.
--- NOTE | 2023-10-17 10:54 | ECG_ITS ---
SEE SCANNED COPY FOR CONFIRMED REPORT. MTDD
--- NOTE | 2023-10-17 11:04 | PC.NURSE ---
BSSR given to ZARINA Prabhakar.
[2023-10-17 12:17] LABS: Basophils Percent Auto 0.3 % (0.2-1.2); Eosinophils Absolute Auto 0.1 K/mm3 (0-0.3); Eosinophils Percent Auto 0.5 % (0-4.4); Hematocrit 41.4 % (37.0-47.0); Hemoglobin 13.6 g/dL (12.0-15.0); Immature Granulocyte Absolute 0.05 K/mm3 (0.00-0.031); Immature Granulocyte Percent A 0.4 % (0-0.5); Lymphocytes Absolute Auto 2.17 K/mm3 (0.9-3.2); Lymphocytes Percent Auto 18.5 % (18.3-44.2); Mean Corpuscular HGB Conc 32.9 g/dl (32-36); Mean Corpuscular Hemoglobin 31.2 pg (26-34); Mean Platelet Volume 9.7 fl (7.4-10.4); Monocytes Percent Auto 8.7 % (2.6-8.5); Neutrophils Absolute Auto 8.4 K/mm3 (1.3-6.7); Neutrophils Percent Auto 71.6 % (45.5-73.1); Platelet Count Result 159 k/mm3 (150-375); Red Blood Count 4.36 M/mm3 (4.2-5.4); Red Cell Distribution Width 14.4 % (11.5-14.5); White Blood Count 11.7 K/mm3 (4.5-10.0)
[2023-10-17 12:31] LABS: Alanine Aminotransferase 21 U/L (6-35); Albumin Level 4.4 g/dL (3.5-5.1); Alkaline Phosphatase 79 U/L (38-126); Anion Gap 10 mmol/L (4-12); Aspartate Amino Transferase 26 U/L (14-36); Bilirubin,Total 1.1 mg/dL (0.2-1.3); Blood Urea Nitrogen 25 mg/dL (7-17); Calcium 9.1 mg/dL (8.4-10.2); Carbon Dioxide 25 mmol/L (22-30); Chloride 106 mmol/L (98-107); Estimated CRCL calculation 56 ml/min; Estimated Glomerular Filt Rate > 60; Glucose 197 mg/dL (65-110); Potassium 3.9 mmol/L (3.4-5.0); Sodium 141 mmol/L (137-145)
--- NOTE | 2023-10-17 12:53 | ED.AMS ---
HPI - Altered Mental Status General Chief Complaint: Altered Mental Status Stated Complaint: altered LOC, wheezing Time Seen by Provider: 10/17/23 12:07 History of Present Illness HPI narrative: 83-year-old female history of COPD presented to the emergency department for evaluation of worsening shortness of breath and increased generalized weakness over the last few days. Patient does report increased cough and fatigue. Patient is normally not on oxygen but did have a oxygen saturation of 90% on room air. This did improve on 2 L of oxygen by nasal cannula. Related Data Home Medications Medication Instructions Recorded Confirmed sertraline 100 mg tablet 200 mg PO DAILY 01/24/20 10/17/23 aripiprazole 2 mg tablet 2 mg PO QHS 08/25/21 10/17/23 buspirone 5 mg tablet 10 mg PO TID 08/25/21 10/17/23 blood-glucose meter 09/21/21 10/17/23 fluticasone propionate 50 1 spray intranasal BID PRN nasal 01/13/23 10/17/23 mcg/actuation nasal congestion spray,suspension budesonide 160 mcg-glycopyr 9 2 inh inhalation BID 10/17/23 10/17/23 mcg-formot 4.8 mcg/actuation HFA inhaler (Breztri Aerosphere) canagliflozin 300 mg tablet 300 mg PO DAILY 10/17/23 10/17/23 (Invokana) insulin aspart U-100 100 unit/mL 5 unit subcut TID 10/17/23 10/17/23 (3 mL) subcutaneous pen (Novolog FlexPen U-100 Insulin aspart) insulin degludec 100 unit/mL (3 20 unit subcut DAILY 10/17/23 10/17/23 mL) subcutaneous pen (Tresiba FlexTouch U-100 insulin) lansoprazole 15 mg capsule,delayed 15 mg PO DAILY PRN Abdominal 10/17/23 10/17/23 release Discomfort sitagliptin phosphate 100 mg 100 mg PO DAILY 10/17/23 10/17/23 tablet (Januvia) Allergies Allergy/AdvReac Type Severity Reaction Status Date / Time cephalexin Allergy Unknown Unknown Verified 10/10/23 11:37 ciprofloxacin Allergy Unknown Unknown Verified 10/10/23 11:37 clindamycin Allergy Unknown Unknown Verified 10/10/23 11:37 influenza virus vaccine, Allergy Unknown Swelling Verified 09/14/23 10:07 specific of Lip/Tongue/Throat Influenza Virus Vaccines Allergy Unknown Swelling Verified 10/10/23 11:37 of Lip/Tongue/Throat levofloxacin Allergy Unknown Unknown Verified 10/10/23 11:37 Penicillins Allergy Unknown Unknown Verified 10/10/23 11:37 pneumococcal vaccine Allergy Unknown Swelling Verified 10/10/23 11:37 of Lip/Tongue/Throat Sulfa (Sulfonamide Allergy Unknown Unknown Verified 10/10/23 11:37 Antibiotics) tetanus and diphtheria Allergy Unknown Swelling Verified 10/10/23 11:37 toxoids of Lip/Tongue/Throat tetanus immune globulin Allergy Unknown Swelling Verified 10/10/23 11:37 of Lip/Tongue/Throat Tetanus Vaccines and Toxoid Allergy Unknown Swelling Verified 10/10/23 11:37 of Lip/Tongue/Throat metformin AdvReac Diarrhea Verified 10/10/23 11:37 Review of Systems Review of Systems: All systems reviewed & are unremarkable except as noted in HPI and below PMFSH Past Medical History Medical History (Updated 10/17/23 @ 13:40 by Sandy Thompson PA-C) Anxiety Bladder cancer Chronic obstructive pulmonary disease Dementia Depression Hyperlipidemia Hypertension Hypothyroidism Osteoarthritis Pneumonia Seasonal allergies Shingles Type 2 diabetes mellitus Surgical History Surgical History History of bladder surgery (06/17/14) Transurethral resection of bladder tumor which showed noninvasive low-grade papillary urothelial carcinoma. History of cataract removal with insertion of prosthetic lens Family History Family History Mother Hypertension Patient's mother is Family history of thoracic aortic aneurysm Sibling Patient's sister is in good health Acute myocardial infarction TIA (transient ischemic attack) Father Family history of diabetes mellitus in first degree relative Family hi
[2023-10-17] MEDS: ALBUTEROL SULFATE NEB 2.5 MG/3 ML INH INHALATION ×2 (13:18→20:30)
--- NOTE | 2023-10-17 13:37 | PM.IMHP ---
H&P: HPI History of Present Illness Date/Time: 10/17/23 13:45 Chief Complaint: Shortness of breath. Narrative: This is an 83-year-old female with dementia, chronic obstructive pulmonary disease, type 2 diabetes mellitus, hypertension, anxiety, and depression who presented to the emergency department via EMS from home for evaluation of shortness of breath. She is a fair historian but seems to be a bit confused due to her underlying dementia thus some of the following is supplemented via a review of her electronic medical records. She gives a several day history of mild sore throat, nonproductive cough, shortness of breath, and swelling in the legs. She lives alone in an assisted living apartment at [place] and states she does not spend much time around other people so she does not believe that she has had any sick contacts. She denies fever, sinus congestion, chest and pleuritic pain, orthopnea, paroxysmal nocturnal dyspnea, nausea, vomiting, diarrhea, calf pain, syncope, and near syncope. In the ED: She was afebrile on arrival with stable blood pressures. Labs were significant for a WBC count of 11.7, BUN 25, glucose 197. MRSA screen was negative. Chest x-ray showed patchy bilateral pneumonia. She has a multitude of allergies to antibiotics of which she has difficulties describing her reaction. After review of this list, she has been started on doxycycline and she is being admitted for further treatment. Review of Systems Review of Systems: 12 systems were reviewed and are negative except for as per HPI. [facility] Past Medical History Medical History (Updated 10/17/23 @ 13:40 by Sandy Thompson PA-C) Anxiety Bladder cancer Chronic obstructive pulmonary disease Dementia Depression Hyperlipidemia Hypertension Hypothyroidism Osteoarthritis Pneumonia Seasonal allergies Shingles Type 2 diabetes mellitus Surgical History Surgical History History of bladder surgery (06/17/14) Transurethral resection of bladder tumor which showed noninvasive low-grade papillary urothelial carcinoma. History of cataract removal with insertion of prosthetic lens Family History Family History Mother Hypertension Patient's mother is Family history of thoracic aortic aneurysm Sibling Patient's sister is in good health Acute myocardial infarction TIA (transient ischemic attack) Father Family history of diabetes mellitus in first degree relative Family history of malignant neoplasm of brain, Onset Age: 85 Malignant neoplasm of prostate Bone tumor Father Diabetes mellitus Other Arthritis Brain cancer Social History Social History (Updated 10/17/23 @ 20:39 by Sandy Thompson PA-C) Social History: Surrogate medical decision maker: Kristine Browning, sibling. Code status: Full code. Smoking packs per day: 2 Smoking cigarettes per day: 40.0 Years smoked: 58 Smoking pack-years: 116.00 Smoking status: Former smoker Tobacco type: cigarettes Second hand tobacco smoke exposure: Yes Smoking end date: 03/19/19 Alcohol intake: never Substance use: never Substance use type: does not use Do You Feel Safe in your Home?: Yes Lack of Transportation: No Lack of Food: Never True Current Housing: I Have Housing Concerned About Future Housing: No Difficulty Paying Gas/Electric Bills: No Difficulty Paying for Meds: No Currently Unemployed: No Education: Decline to Answer Difficulty w/ Childcare or Family Care: No Living arrangements: assisted living Additional living arrangements comments: Patient is living at [facility]. Spiritual care concerns: No Agree to blood products: Yes Meds Home Medications and Allergies Home Medications Medication Instructions Recorded Confirmed Type nebulizer and compressor (Home #1 ea 05/14/19 0
[2023-10-17] MEDS: AZITHROMYCIN 500 MG/NS 250 ML 500 MG/250 ML BAG 250 MG IVPB (13:38)
[2023-10-17] MEDS: methylPREDNISolone SOD SUCC 125 MG VIAL IV PUSH (13:39)
[2023-10-17 14:45] LABS: MRSA (PCR) NOT DETECTED (NOT DETECTE)
--- NOTE | 2023-10-17 14:50 | ADMGEN ---
This patient, Viola Dominguez, was admitted to 3 [facility] Room 320-01. Patient/family oriented to hospital policies and general routines including ID bracelet, bed and alarms, visiting hours, pain management, procedures, bathroom and other care routines, personal items, smoking policy, room service/diet, and visiting hours. Information on how to activate the Rapid Response Team has been discussed. Patient/Family are encouraged to report perceived risks to care and to ask questions if they do not understand what they are told or what they should do.
--- NOTE | 2023-10-17 14:54 | PC.NURSE ---
[facility] called @[phone] for status update. all questions answered.
[2023-10-17 15:29] LABS: Glucose Point of Care 164 mg/dl (65-105)
[2023-10-17] MEDS: DOXYCYCLINE 100 MG/NS 100 ML 100 MG/100 ML BAG IVPB (16:02)
[2023-10-17] MEDS: methylPREDNISolone SOD SUCC 125 MG VIAL 60 MG IV PUSH (17:58)
[2023-10-17] MEDS: INSULIN ASPART (*BKC) 100 UNITS/ML SUB-Q (21:05)
[2023-10-17] MEDS: guaiFENesin 12 HR 600 MG TABCR PO (21:05)
[2023-10-17 21:14] LABS: Glucose Point of Care 254 mg/dl (65-105)
[2023-10-17 21:54] LABS: Influenza A QL RT-PCR Negative (Negative); Influenza B QL RT-PCR Negative (Negative); RSV RNA, RT-PCR Negative (Negative); SARS-CoV-2 RNA PCR Negative (Negative)
[2023-10-17] MEDS: DOXYCYCLINE HYCLATE 100 MG TABLET PO (23:19)
[2023-10-18] VITALS (16 sets, daily range): BP systolic 120–125; BP diastolic 56–64; PULSE 70–94; RESP 18–20; TEMP 35.8–36.1; O2SAT 93–97
--- NOTE | 2023-10-18 | ECHO_ITS ---
Patient Info Name: Viola Dominguez Age: 83 years : 1940 Gender: Female Ht: 65 in Wt: 228 lbs BSA: 2.23 m2 HR: 83 bpm BP: 125 / 62 mmHg Heart Rhythm: Sinus Rhythm Technical Quality: Fair Exam Date: 10/18/2023 1:23 PM Exam Location: Echo Lab Patient Status: Outpatient Admit Date: 10/17/2023 Staff Ordering Physician: Shy Moyer PA-C Eye Dropper Assembler: Rhona Leger RDCS Attending Provider: Samra Hudson MD Referring Physician: João COX; Exam Type: CA echo doppler color flow Study Info Indications J96.91 - Respiratory failure, unspecified with hypoxia Complete two-dimensional, color flow and Doppler transthoracic echocardiogram is performed. Summary 1. Complete two-dimensional, color flow and Doppler transthoracic echocardiogram is performed. 2. Left ventricular chamber dimension is normal. 3. Left ventricular systolic function is normal, estimated at 65-70%. 4. The left ventricular diastolic function is grade I diastolic dysfunction. 5. Right ventricular systolic function is normal. 6. There is mild mitral valve regurgitation. 7. There is mild tricuspid valve regurgitation. Left Ventricle Left ventricular chamber dimension is normal. Left ventricular systolic function is normal, estimated at 65-70%. There is no increased left ventricular wall thickness. The left ventricular diastolic function is grade I diastolic dysfunction. Right Ventricle Right ventricular chamber dimension is normal. Right ventricular systolic function is normal. Left Atria Left atrial chamber dimension is normal. Right Atria Right atrial chamber dimension is normal. Atrial Septum Intact interatrial septum visualized by color flow imaging. Aortic Valve The aortic valve is probable trileaflet. There is no aortic valve stenosis. There is no aortic valve regurgitation. There is mild aortic valve calcification. Pulmonic Valve The pulmonic valve is not well visualized. Mitral Valve There is mild mitral valve regurgitation. Tricuspid Valve There is mild tricuspid valve regurgitation. Pericardium/Pleural There is no pericardial effusion. Inferior Vena Cava Normal inferior vena cava with >50% collapse upon inspiration consistent with normal right atrial pressure, 3 mmHg. Aorta The aortic root size at the sinus of Valsalva is normal. Left Ventricular Outflow Tract Name Value Normal LVOT 2D LVOT Diameter 2.0 cm LVOT Doppler LVOT Peak Gradient 9 mmHg LVOT Mean Gradient 5 mmHg LVOT VTI 32 cm LVOT VTI/AV VTI Ratio 1.2 LVOT Stroke Volume 100 ml LVOT CO 8.6 l/min LVOT CI 3.8 l/min/m2 Pulmonic Valve Name Value Normal RVOT Doppler RVOT Peak Gradient 3 mmHg PV Doppler
[2023-10-18] MEDS: ALBUTEROL SULFATE NEB 2.5 MG/3 ML INH INHALATION ×4 (02:56→20:22)
[2023-10-18 05:42] LABS: Hematocrit 40.5 % (37.0-47.0); Hemoglobin 12.7 g/dL (12.0-15.0); Mean Corpuscular HGB Conc 31.4 g/dl (32-36); Mean Corpuscular Hemoglobin 30.5 pg (26-34); Mean Corpuscular Volume 97.1 fl (80-100); Mean Platelet Volume 10.1 fl (7.4-10.4); Platelet Count Result 160 k/mm3 (150-375); Red Blood Count 4.17 M/mm3 (4.2-5.4); Red Cell Distribution Width 13.8 % (11.5-14.5); White Blood Count 9.2 K/mm3 (4.5-10.0)
[2023-10-18 05:53] LABS: Anion Gap 10 mmol/L (4-12); Blood Urea Nitrogen 26 mg/dL (7-17); Calcium 9.1 mg/dL (8.4-10.2); Carbon Dioxide 21 mmol/L (22-30); Chloride 108 mmol/L (98-107); Estimated CRCL calculation 63 ml/min; Estimated Glomerular Filt Rate > 60; Glucose 180 mg/dL (65-110); Magnesium 2.2 mg/dL (1.6-2.3); Sodium 139 mmol/L (137-145)
[2023-10-18 07:40] LABS: Glucose Point of Care 143 mg/dl (65-105)
[2023-10-18] MEDS: DOXYCYCLINE HYCLATE 100 MG TABLET PO ×2 (08:10→20:18)
[2023-10-18] MEDS: predniSONE 20 MG TABLET 40 MG PO (08:10)
[2023-10-18] MEDS: guaiFENesin 12 HR 600 MG TABCR PO ×2 (08:11→20:17)
--- NOTE | 2023-10-18 08:17 | PM.IMPN ---
Progress Note: A&P Assessment and Plan (1) Pneumonia: Code(s): J18.9 - Pneumonia, unspecified organism Status: Acute Assessment and Plan: CXR: Patchy bilateral pneumonia - Risk Factors: none - Complicating Factors: none - started on CAP tx: doxycycline due to patients long list of antibiotic allergies - Viral PCR: negative for Flu/COVID/RSV - M. pneumoniae, L. pneumophila Ag, and Pneumococcal Ag pending - 2L NC supplemental O2 required. Not on O2 supplementation at baseline. - supportive treatment tyl and ibu prn nebs prn prednisone ordered for significant wheezing - trend labs (2) Hypoxia: Code(s): R09.02 - Hypoxemia Status: Acute Assessment and Plan: Likely due to patients on going pneumonia on top of COPD. Venous dopplers ordered due to ongoing leg swelling with shortness of breath. However patient is refusing at this time. A venous doppler was negative on 10/10/23. An echo was obtained and impression LVEF 65-70% with grade I diastolic dysfunction and mild mitral and tricuspid valve regurgitation. IV lasix 40 mg x1. (3) Chronic obstructive pulmonary disease: Qualifiers: COPD type: unspecified COPD Qualified Code(s): J44.9 - Chronic obstructive pulmonary disease, unspecified Code(s): J44.9 - Chronic obstructive pulmonary disease, unspecified Status: Acute Assessment and Plan: In no acute exacerbation. (4) Hypertension: Qualifiers: Hypertension type: essential hypertension Qualified Code(s): I10 - Essential (primary) hypertension Code(s): I10 - Essential (primary) hypertension Status: Chronic Assessment and Plan: Stable. - Monitor (5) Type 2 diabetes mellitus: Qualifiers: Diabetes mellitus complication status: without complication Diabetes mellitus prison insulin use: without exterminator use Qualified Code(s): E11.9 - Type 2 diabetes mellitus without complications Code(s): E11.9 - Type 2 diabetes mellitus without complications Status: Acute Assessment and Plan: - hypoglycemia protocol - POC blood glucose - correct regimen ordered - low dose TIDWM and HS Time Spent With Patient Time with patient: 25 - 35 minutes Subjective Date/time seen: 10/18/23 08:17 Interval history: 83-year-old female with dementia, chronic obstructive pulmonary disease, type 2 diabetes mellitus, hypertension, anxiety, and depression who presented to the emergency department via EMS from home for evaluation of shortness of breath.? Patient is alert and oriented lying in bed. Patient remains on 2L NC. She states she is on no supplemental O2 at baseline. She denies shortness of breath and chest pain. Patient continues to have a cough, however refuses to give a sputum culture. Discussed with the patient the importance of working with PT/OT while inpatient to avoid worsening weakness. Patient states she does not want to work with PT/OT, she wants to sit in bed. Reiterated that PT/OT are ordered to ensure patient remains mobile and keeps her strength. She states she will think about working with them. Per RN patient removed her IV overnight and is now refusing replacement. RN states that yesterday patient was refusing oral medications and has been picking and choosing her care. Discussed with patient the importance of IV placement especially due to the fact that I was planning on ordering lasix due to patients ongoing lower extremity edema. She agreed to IV placement at that time. A venous doppler was ordered due to patients on going lower extremity edema, however patient refused the dopplers due to lower extremity pain. An echo was ordered and shows preserved EF with grade I diastolic dysfunction. Patient received IV lasix 40 mg x1 for lower extremity edema. She denies chest pain, shortness of breath, nausea/vomiting, palpitations, and changes in bowel/bladder. Review of Systems Review of Systems: All systems reviewed & a
[2023-10-18 11:25] LABS: Glucose Point of Care 220 mg/dl (65-105)
[2023-10-18] MEDS: FUROSEMIDE INJ 40 MG/4 ML VIAL IV PUSH (11:46)
[2023-10-18] MEDS: INSULIN ASPART (*BKC) 100 UNITS/ML SUB-Q ×3 (11:46→20:18)
[2023-10-18 16:13] LABS: Glucose Point of Care 309 mg/dl (65-105)
[2023-10-18 16:13] LABS: Glucose Point of Care 279 mg/dl (65-105)
[2023-10-18] MEDS: MEMANTINE 5 MG TABLET 10 MG PO (16:26)
[2023-10-18] MEDS: ACETAMINOPHEN 325 MG TABLET 650 MG PO ×2 (16:26→21:57)
[2023-10-18] MEDS: TOLNAFTATE 1% POWDER 45 GM BTL 1 APPLIC TOPICAL ×2 (16:26→20:18)
[2023-10-18] MEDS: busPIRone HCL 5 MG TABLET 10 MG PO (16:27)
[2023-10-18 20:43] LABS: Glucose Point of Care 313 mg/dl (65-105)
[2023-10-18 21:03] LABS: Glucose Point of Care 270 mg/dl (65-105)
[2023-10-19] VITALS (18 sets, daily range): BP systolic 113–144; BP diastolic 42–60; PULSE 71–86; RESP 18–20; TEMP 36.1–36.5; O2SAT 92–96
[2023-10-19 00:34] LABS: Glucose Point of Care 186 mg/dl (65-105)
[2023-10-19] MEDS: ALBUTEROL SULFATE NEB 2.5 MG/3 ML INH INHALATION ×4 (02:45→20:10)
[2023-10-19 05:44] LABS: Basophils Percent Auto 0.3 % (0.2-1.2); Eosinophils Absolute Auto 0.1 K/mm3 (0-0.3); Eosinophils Percent Auto 0.9 % (0-4.4); Hematocrit 39.9 % (37.0-47.0); Hemoglobin 12.8 g/dL (12.0-15.0); Immature Granulocyte Absolute 0.06 K/mm3 (0.00-0.031); Immature Granulocyte Percent A 0.7 % (0-0.5); Lymphocytes Absolute Auto 2.48 K/mm3 (0.9-3.2); Lymphocytes Percent Auto 27.7 % (18.3-44.2); Mean Corpuscular HGB Conc 32.1 g/dl (32-36); Mean Corpuscular Hemoglobin 31.1 pg (26-34); Mean Corpuscular Volume 96.8 fl (80-100); Mean Platelet Volume 10.1 fl (7.4-10.4); Monocytes Absolute Auto 0.9 K/mm3 (0.1-0.6); Monocytes Percent Auto 9.7 % (2.6-8.5); Neutrophils Absolute Auto 5.4 K/mm3 (1.3-6.7); Neutrophils Percent Auto 60.7 % (45.5-73.1); Platelet Count Result 174 k/mm3 (150-375); Red Blood Count 4.12 M/mm3 (4.2-5.4); Red Cell Distribution Width 13.9 % (11.5-14.5)
[2023-10-19 05:56] LABS: Alanine Aminotransferase 18 U/L (6-35); Albumin Level 3.8 g/dL (3.5-5.1); Alkaline Phosphatase 70 U/L (38-126); Anion Gap 8 mmol/L (4-12); Aspartate Amino Transferase 20 U/L (14-36); Bilirubin,Total 0.7 mg/dL (0.2-1.3); Blood Urea Nitrogen 27 mg/dL (7-17); Carbon Dioxide 23 mmol/L (22-30); Chloride 107 mmol/L (98-107); Estimated CRCL calculation 57 ml/min; Estimated Glomerular Filt Rate > 60; Glucose 209 mg/dL (65-110); Potassium 3.4 mmol/L (3.4-5.0); Sodium 138 mmol/L (137-145)
[2023-10-19 06:14] LABS: Hemoglobin A1C 7.9 % (<5.7)
--- NOTE | 2023-10-19 07:13 | PM.IMPN ---
Progress Note: A&P Assessment and Plan (1) Pneumonia: Code(s): J18.9 - Pneumonia, unspecified organism Status: Acute Assessment and Plan: CXR: Patchy bilateral pneumonia - Risk Factors: none - Complicating Factors: none - started on CAP tx: doxycycline due to patients long list of antibiotic allergies - Viral PCR: negative for Flu/COVID/RSV - M. pneumoniae, L. pneumophila Ag, and Pneumococcal Ag pending - No longer requiring O2 supplementation - supportive treatment tyl and ibu prn nebs prn prednisone ordered for significant wheezing - trend labs - incentive spirometer ordered (2) Hypoxia: Code(s): R09.02 - Hypoxemia Status: Acute Assessment and Plan: Likely due to patients on going pneumonia on top of COPD. Venous dopplers ordered due to ongoing leg swelling with shortness of breath. However patient is refusing at this time. A venous doppler was negative on 10/10/23. An echo was obtained and impression LVEF 65-70% with grade I diastolic dysfunction and mild mitral and tricuspid valve regurgitation. IV lasix 40 mg x1. (3) Diastolic dysfunction: Code(s): I51.89 - Other ill-defined heart diseases Status: Acute Assessment and Plan: Severe lower extremity swelling. Patient refused lower extremity venous dopplers. Echo 10/17 revealed LVEF 65-70% with grade I diastolic dysfunction and mild mitral and tricuspid valve regurgitation. IV lasix x1. Started on 40 mg lasix PO. - Monitor volume status - Monitor CMP (4) Type 2 diabetes mellitus: Qualifiers: Diabetes mellitus complication status: without complication Diabetes mellitus long-term insulin use: without long-term use Qualified Code(s): E11.9 - Type 2 diabetes mellitus without complications Code(s): E11.9 - Type 2 diabetes mellitus without complications Status: Acute Assessment and Plan: - hypoglycemia protocol - POC blood glucose - correct regimen ordered - low dose TIDWM and HS (5) Chronic obstructive pulmonary disease: Qualifiers: COPD type: unspecified COPD Qualified Code(s): J44.9 - Chronic obstructive pulmonary disease, unspecified Code(s): J44.9 - Chronic obstructive pulmonary disease, unspecified Status: Acute Assessment and Plan: In no acute exacerbation. (6) Hypertension: Qualifiers: Hypertension type: essential hypertension Qualified Code(s): I10 - Essential (primary) hypertension Code(s): I10 - Essential (primary) hypertension Status: Chronic Assessment and Plan: Stable. - Monitor Time Spent With Patient Time with patient: 25 - 35 minutes Subjective Date/time seen: 10/19/23 07:13 Interval history: 83-year-old female with dementia, chronic obstructive pulmonary disease, type 2 diabetes mellitus, hypertension, anxiety, and depression who presented to the emergency department via EMS from home for evaluation of shortness of breath.? Patient is lying in bed comfortably. She is no longer requiring supplemental O2 and the wheezing has improved. Started incentive spirometer. She denies shortness of breath, chest pain, palpitations at this time. She continues to pick and chose what care she wants done during the admission. Discussed the importance of taking her medications and working with PT/OT and patient states understanding. She refused PT today, but did work with OT who continues to recommend SNF placement. Care coordination is working on placement and insurance authorization. Review of Systems Review of Systems: All systems reviewed & are unremarkable except as noted in HPI and below Exam Narrative: AF HR 71 RR 18 SpO2 93 RA BP 144/60 General: female in no acute respiratory distress who is nontoxic appearing, sitting up in bed. HEENT: Normocephalic. Atraumatic. Pupils equal round reactive to light. Extraocular movement intact. Sclera clear and anicteric. No facial asymmetry. Chest:
[2023-10-19 08:01] LABS: Glucose Point of Care 192 mg/dl (65-105)
[2023-10-19] MEDS: ENOXAPARIN 40 MG/0.4 ML SYRINGE SUB-Q (08:17)
[2023-10-19] MEDS: MEMANTINE 5 MG TABLET 10 MG PO ×2 (08:18→16:30)
[2023-10-19] MEDS: busPIRone HCL 5 MG TABLET 10 MG PO ×3 (08:18→16:30)
[2023-10-19] MEDS: DOXYCYCLINE HYCLATE 100 MG TABLET PO ×2 (08:18→20:23)
[2023-10-19] MEDS: FUROSEMIDE 40 MG TABLET PO (08:18)
[2023-10-19] MEDS: ATORVASTATIN 10 MG TABLET PO (08:18)
[2023-10-19] MEDS: SERTRALINE HCL 50 MG TABLET 200 MG PO (08:18)
[2023-10-19] MEDS: MELOXICAM 7.5 MG TABLET PO (08:18)
[2023-10-19] MEDS: guaiFENesin 12 HR 600 MG TABCR PO ×2 (08:19→20:23)
[2023-10-19] MEDS: NEBIVOLOL HCL 5 MG TABLET 10 MG PO (08:19)
[2023-10-19] MEDS: predniSONE 20 MG TABLET 40 MG PO (08:19)
[2023-10-19] MEDS: TOLNAFTATE 1% POWDER 45 GM BTL 1 APPLIC TOPICAL ×2 (09:00→20:26)
[2023-10-19 11:24] LABS: Glucose Point of Care 292 mg/dl (65-105)
[2023-10-19] MEDS: INSULIN ASPART (*BKC) 100 UNITS/ML SUB-Q ×3 (12:30→20:24)
--- NOTE | 2023-10-19 14:59 | PCPTNOTE ---
Attempted to see patient for Physical Therapy. Patient shook her head no and said, No when asked to do therapy activities. Patient stated that she had to use the bed parr. Patient's sister was also in the room and told patient that she needed to participate in Physical Therapy. RN notified.
[2023-10-19 16:41] LABS: Glucose Point of Care 301 mg/dl (65-105)
[2023-10-19 21:01] LABS: Glucose Point of Care 251 mg/dl (65-105)
[2023-10-20] VITALS (16 sets, daily range): BP systolic 107–132; BP diastolic 55–81; PULSE 67–82; RESP 13–20; TEMP 35.9–36.7; O2SAT 93–98
[2023-10-20] MEDS: ACETAMINOPHEN 325 MG TABLET 650 MG PO (02:02)
[2023-10-20 06:04] LABS: Basophils Percent Auto 0.5 % (0.2-1.2); Eosinophils Absolute Auto 0.2 K/mm3 (0-0.3); Eosinophils Percent Auto 1.7 % (0-4.4); Hemoglobin 12.6 g/dL (12.0-15.0); Immature Granulocyte Absolute 0.09 K/mm3 (0.00-0.031); Lymphocytes Absolute Auto 3.12 K/mm3 (0.9-3.2); Lymphocytes Percent Auto 35.3 % (18.3-44.2); Mean Corpuscular HGB Conc 32.3 g/dl (32-36); Mean Corpuscular Hemoglobin 30.7 pg (26-34); Mean Corpuscular Volume 94.9 fl (80-100); Mean Platelet Volume 10.1 fl (7.4-10.4); Monocytes Absolute Auto 0.9 K/mm3 (0.1-0.6); Monocytes Percent Auto 10.3 % (2.6-8.5); Neutrophils Absolute Auto 4.5 K/mm3 (1.3-6.7); Neutrophils Percent Auto 51.2 % (45.5-73.1); Platelet Count Result 173 k/mm3 (150-375); Red Blood Count 4.11 M/mm3 (4.2-5.4); Red Cell Distribution Width 13.9 % (11.5-14.5); White Blood Count 8.8 K/mm3 (4.5-10.0)
[2023-10-20 06:19] LABS: Alanine Aminotransferase 20 U/L (6-35); Albumin Level 3.5 g/dL (3.5-5.1); Alkaline Phosphatase 65 U/L (38-126); Anion Gap 6 mmol/L (4-12); Aspartate Amino Transferase 20 U/L (14-36); Bilirubin,Total 0.7 mg/dL (0.2-1.3); Blood Urea Nitrogen 22 mg/dL (7-17); Calcium 8.9 mg/dL (8.4-10.2); Carbon Dioxide 25 mmol/L (22-30); Chloride 108 mmol/L (98-107); Estimated CRCL calculation 64 ml/min; Estimated Glomerular Filt Rate > 60; Glucose 198 mg/dL (65-110); Potassium 3.6 mmol/L (3.4-5.0); Sodium 139 mmol/L (137-145)
[2023-10-20 07:22] LABS: Glucose Point of Care 178 mg/dl (65-105)
[2023-10-20] MEDS: ALBUTEROL SULFATE NEB 2.5 MG/3 ML INH INHALATION ×3 (08:26→21:01)
[2023-10-20] MEDS: FUROSEMIDE 40 MG TABLET PO (08:57)
[2023-10-20] MEDS: busPIRone HCL 5 MG TABLET 10 MG PO ×3 (08:57→17:18)
[2023-10-20] MEDS: SERTRALINE HCL 50 MG TABLET 200 MG PO (08:57)
[2023-10-20] MEDS: guaiFENesin 12 HR 600 MG TABCR PO ×2 (08:57→20:28)
[2023-10-20] MEDS: ENOXAPARIN 40 MG/0.4 ML SYRINGE SUB-Q (08:57)
[2023-10-20] MEDS: DOXYCYCLINE HYCLATE 100 MG TABLET PO ×2 (08:57→20:28)
[2023-10-20] MEDS: MEMANTINE 5 MG TABLET 10 MG PO ×2 (08:57→17:18)
[2023-10-20] MEDS: NEBIVOLOL HCL 5 MG TABLET 10 MG PO (08:58)
[2023-10-20] MEDS: predniSONE 20 MG TABLET 40 MG PO (08:58)
[2023-10-20] MEDS: ATORVASTATIN 10 MG TABLET PO (08:58)
[2023-10-20] MEDS: MELOXICAM 7.5 MG TABLET PO (08:58)
[2023-10-20 11:27] LABS: Glucose Point of Care 280 mg/dl (65-105)
[2023-10-20] MEDS: INSULIN ASPART (*BKC) 100 UNITS/ML SUB-Q (11:31)
--- NOTE | 2023-10-20 13:50 | PM.IMPN ---
Progress Note: A&P Assessment and Plan (1) Pneumonia: Code(s): J18.9 - Pneumonia, unspecified organism Status: Acute Assessment and Plan: CXR: Patchy bilateral pneumonia - Risk Factors: none - Complicating Factors: none - started on CAP tx: doxycycline due to patients long list of antibiotic allergies - Viral PCR: negative for Flu/COVID/RSV - M. pneumoniae, L. pneumophila Ag, and Pneumococcal Ag pending - No longer requiring O2 supplementation - supportive treatment tyl and ibu prn nebs prn prednisone ordered for significant wheezing - trend labs - incentive spirometer ordered (2) Hypoxia: Code(s): R09.02 - Hypoxemia Status: Acute Assessment and Plan: Likely due to patients on going pneumonia on top of COPD. Venous dopplers ordered due to ongoing leg swelling with shortness of breath. However patient is refusing at this time. A venous doppler was negative on 10/10/23. An echo was obtained and impression LVEF 65-70% with grade I diastolic dysfunction and mild mitral and tricuspid valve regurgitation. IV lasix 40 mg x1. - resolved (3) Diastolic dysfunction: Code(s): I51.89 - Other ill-defined heart diseases Status: Acute Assessment and Plan: Severe lower extremity swelling. Patient refused lower extremity venous dopplers. Echo 10/17 revealed LVEF 65-70% with grade I diastolic dysfunction and mild mitral and tricuspid valve regurgitation. IV lasix x1. Started on 40 mg lasix PO. Patients lower extremities with pitting edema. Will give another dose of lasix IV. - Monitor volume status - Monitor CMP (4) Type 2 diabetes mellitus: Qualifiers: Diabetes mellitus shelter insulin use: without shelter use Diabetes mellitus complication status: without complication Qualified Code(s): E11.9 - Type 2 diabetes mellitus without complications Code(s): E11.9 - Type 2 diabetes mellitus without complications Status: Acute Assessment and Plan: - hypoglycemia protocol - POC blood glucose - correct regimen ordered - low dose TIDWM and HS (5) Chronic obstructive pulmonary disease: Qualifiers: COPD type: unspecified COPD Qualified Code(s): J44.9 - Chronic obstructive pulmonary disease, unspecified Code(s): J44.9 - Chronic obstructive pulmonary disease, unspecified Status: Acute Assessment and Plan: In no acute exacerbation. (6) Hypertension: Qualifiers: Hypertension type: essential hypertension Qualified Code(s): I10 - Essential (primary) hypertension Code(s): I10 - Essential (primary) hypertension Status: Chronic Assessment and Plan: Stable. - Monitor Time Spent With Patient Time with patient: 25 - 35 minutes Subjective Date/time seen: 10/20/23 13:50 Interval history: 83-year-old female with dementia, chronic obstructive pulmonary disease, type 2 diabetes mellitus, hypertension, anxiety, and depression who presented to the emergency department via EMS from home for evaluation of shortness of breath.? Patient is lying in bed comfortably. She states that she is not feeling the best today, complaining of abdominal pain and a headache. She denies shortness of breath, chest pain, palpitations at this time. Her lungs Patient continues to have lower extremity swelling, however still refuses lower extremity dopplers. She is aware of what we would be looking for, but states she does not wish to have the dopplers done. She remains on lasix PO. Will give a one time dose of lasix IV. Discussed with her the importance of working with PT/OT to maintain her strength. She became frustrated and states understanding. Patient started having a bowel movement during my exam and abdominal pain resolved. Review of Systems Review of Systems: All systems reviewed & are unremarkable except as noted in HPI and below Exam Narrative: AF HR 67 RR 18 SpO2 95 BP 132/55 General: female in no acute respir
[2023-10-20] MEDS: FUROSEMIDE INJ 40 MG/4 ML VIAL IV PUSH (14:03)
[2023-10-20 16:07] LABS: Glucose Point of Care > 500 mg/dl (65-105)
[2023-10-20 16:07] LABS: Glucose Point of Care > 500 mg/dl (65-105)
[2023-10-20] MEDS: INSULIN GLARGINE (*BKC) 100 UNITS/ML 20 UNITS SUB-Q (17:10)
[2023-10-20] MEDS: INSULIN ASPART (*BKC) 100 UNITS/ML 15 UNITS SUB-Q (17:11)
[2023-10-20] MEDS: guaiFENesin 600 MG/DEXTROMETHORPHAN 30 MG SR TAB 12 HR 1 TAB PO ×2 (17:18→20:28)
[2023-10-20 18:29] LABS: Glucose Point of Care 479 mg/dl (65-105)
[2023-10-20 20:15] LABS: Glucose Point of Care 357 mg/dl (65-105)
[2023-10-20] MEDS: TOLNAFTATE 1% POWDER 45 GM BTL 1 APPLIC TOPICAL (20:29)
--- NOTE | 2023-10-20 21:50 | PC.NURSE ---
Patient c/o increased anxiety this evening and is requesting another dose of her buspar. Spoke with Dane Quiroga about patient request and Dane says okay to order one time dose of Buspar 10mg.
[2023-10-20] MEDS: busPIRone HCL 10 MG TABLET PO (22:00)
[2023-10-20 23:03] LABS: Glucose Point of Care 242 mg/dl (65-105)
[2023-10-21] VITALS (17 sets, daily range): BP systolic 113–120; BP diastolic 46–54; PULSE 63–78; RESP 12–20; TEMP 36.2–36.8; O2SAT 92–100
[2023-10-21] MEDS: ALBUTEROL SULFATE NEB 2.5 MG/3 ML INH INHALATION ×4 (02:11→19:56)
[2023-10-21 06:26] LABS: Basophils Absolute Auto 0.1 K/mm3 (0.0-0.1); Basophils Percent Auto 0.6 % (0.2-1.2); Eosinophils Absolute Auto 0.2 K/mm3 (0-0.3); Eosinophils Percent Auto 1.7 % (0-4.4); Hematocrit 41.2 % (37.0-47.0); Hemoglobin 13.5 g/dL (12.0-15.0); Immature Granulocyte Absolute 0.15 K/mm3 (0.00-0.031); Immature Granulocyte Percent A 1.4 % (0-0.5); Lymphocytes Absolute Auto 3.76 K/mm3 (0.9-3.2); Mean Corpuscular HGB Conc 32.8 g/dl (32-36); Mean Corpuscular Hemoglobin 30.8 pg (26-34); Mean Corpuscular Volume 94.1 fl (80-100); Monocytes Percent Auto 9.4 % (2.6-8.5); Neutrophils Absolute Auto 5.3 K/mm3 (1.3-6.7); Neutrophils Percent Auto 50.9 % (45.5-73.1); Platelet Count Result 194 k/mm3 (150-375); Red Blood Count 4.38 M/mm3 (4.2-5.4); Red Cell Distribution Width 13.5 % (11.5-14.5); White Blood Count 10.5 K/mm3 (4.5-10.0)
[2023-10-21 06:35] LABS: Alanine Aminotransferase 26 U/L (6-35); Albumin Level 3.8 g/dL (3.5-5.1); Alkaline Phosphatase 74 U/L (38-126); Anion Gap 5 mmol/L (4-12); Aspartate Amino Transferase 24 U/L (14-36); Bilirubin,Total 0.7 mg/dL (0.2-1.3); Blood Urea Nitrogen 21 mg/dL (7-17); Calcium 9.1 mg/dL (8.4-10.2); Carbon Dioxide 28 mmol/L (22-30); Chloride 103 mmol/L (98-107); Estimated CRCL calculation 64 ml/min; Estimated Glomerular Filt Rate > 60; Glucose 182 mg/dL (65-110); Potassium 3.2 mmol/L (3.4-5.0); Sodium 136 mmol/L (137-145)
[2023-10-21 07:30] LABS: Glucose Point of Care 198 mg/dl (65-105)
--- NOTE | 2023-10-21 07:31 | PM.IMPN ---
Progress Note: A&P Assessment and Plan (1) Pneumonia: Code(s): J18.9 - Pneumonia, unspecified organism Status: Acute Assessment and Plan: CXR: Patchy bilateral pneumonia - Risk Factors: none - Complicating Factors: none - started on CAP tx: doxycycline due to patients long list of antibiotic allergies - Viral PCR: negative for Flu/COVID/RSV - M. pneumoniae, L. pneumophila Ag, and Pneumococcal Ag pending - No longer requiring O2 supplementation - supportive treatment tyl and ibu prn nebs prn prednisone discontinued due to improved wheezing and continued hyperglycemia - trend labs - incentive spirometer ordered (2) Hypoxia: Code(s): R09.02 - Hypoxemia Status: Acute Assessment and Plan: Likely due to patients on going pneumonia on top of COPD. Venous dopplers ordered due to ongoing leg swelling with shortness of breath. However patient is refusing at this time. A venous doppler was negative on 10/10/23. An echo was obtained and impression LVEF 65-70% with grade I diastolic dysfunction and mild mitral and tricuspid valve regurgitation. IV lasix 40 mg x1. - resolved (3) Diastolic dysfunction: Code(s): I51.89 - Other ill-defined heart diseases Status: Acute Assessment and Plan: Severe lower extremity swelling. Patient refused lower extremity venous dopplers. Echo 10/17 revealed LVEF 65-70% with grade I diastolic dysfunction and mild mitral and tricuspid valve regurgitation. IV lasix x1. Started on 40 mg lasix PO. Patients lower extremities with pitting edema. - Monitor volume status. Patient intake is over 4L today likely contributing to ongoing edema despite diuresis. Will fluid restrict to 2L. - Omega obrien ordered - Monitor CMP (4) Type 2 diabetes mellitus: Qualifiers: Diabetes mellitus complication status: without complication Diabetes mellitus watermaster insulin use: without watermaster use Qualified Code(s): E11.9 - Type 2 diabetes mellitus without complications Code(s): E11.9 - Type 2 diabetes mellitus without complications Status: Acute Assessment and Plan: Overnight POC glucose > 500. A one time dose of 15 units Novolog was ordered. Patient started on Lantus 20 units daily and Novolog 7 units TIDWM. She will remain on the moderate sliding scale insulin. Discussed plan with Dr. Chacon.?Patient remains hyperglycemic. Will discontinue prednisone at this time due to patient no longer wheezing and it causing increased glucose levels. - hypoglycemia protocol - POC blood glucose (5) Chronic obstructive pulmonary disease: Qualifiers: COPD type: unspecified COPD Qualified Code(s): J44.9 - Chronic obstructive pulmonary disease, unspecified Code(s): J44.9 - Chronic obstructive pulmonary disease, unspecified Status: Acute Assessment and Plan: In no acute exacerbation. (6) Hypertension: Qualifiers: Hypertension type: essential hypertension Qualified Code(s): I10 - Essential (primary) hypertension Code(s): I10 - Essential (primary) hypertension Status: Chronic Assessment and Plan: Stable. - Monitor Time Spent With Patient Time with patient: 25 - 35 minutes Subjective Date/time seen: 10/21/23 07:31 Interval history: 83-year-old female with dementia, chronic obstructive pulmonary disease, type 2 diabetes mellitus, hypertension, anxiety, and depression who presented to the emergency department via EMS from home for evaluation of shortness of breath.? Patient is pleasant sitting up in bed with friend at bedside. Per patient okay to discuss current treatment plan with friend present. Patient continues to have a productive cough. Mucinex DM ordered. She denies shortness of breath, chest pain, and palpitations. Her lower extremities remain severely edematous despite diuresis with PO lasix. On I/O patient has over 4L of intake today. Will conitnue 40 mg PO lasix, fluid restrict to 2L a
[2023-10-21] MEDS: INSULIN ASPART (*BKC) 100 UNITS/ML 7 UNITS SUB-Q ×3 (08:30→16:46)
[2023-10-21] MEDS: busPIRone HCL 5 MG TABLET 10 MG PO ×3 (08:34→16:24)
[2023-10-21] MEDS: FUROSEMIDE 40 MG TABLET PO (08:34)
[2023-10-21] MEDS: POTASSIUM CHLORIDE 20 MEQ ER TABLET 40 MEQ PO (08:34)
[2023-10-21] MEDS: ATORVASTATIN 10 MG TABLET PO (08:35)
[2023-10-21] MEDS: DOXYCYCLINE HYCLATE 100 MG TABLET PO ×2 (08:35→20:48)
[2023-10-21] MEDS: NEBIVOLOL HCL 5 MG TABLET 10 MG PO (08:35)
[2023-10-21] MEDS: SERTRALINE HCL 50 MG TABLET 200 MG PO (08:35)
[2023-10-21] MEDS: predniSONE 20 MG TABLET 40 MG PO (08:35)
[2023-10-21] MEDS: MEMANTINE 5 MG TABLET 10 MG PO ×2 (08:35→16:24)
[2023-10-21] MEDS: guaiFENesin 600 MG/DEXTROMETHORPHAN 30 MG SR TAB 12 HR 1 TAB PO ×2 (08:36→20:48)
[2023-10-21] MEDS: MELOXICAM 7.5 MG TABLET PO (08:36)
[2023-10-21] MEDS: ENOXAPARIN 40 MG/0.4 ML SYRINGE SUB-Q (08:36)
[2023-10-21] MEDS: guaiFENesin 12 HR 600 MG TABCR PO (08:36)
[2023-10-21] MEDS: TOLNAFTATE 1% POWDER 45 GM BTL 1 APPLIC TOPICAL ×2 (08:37→20:48)
--- NOTE | 2023-10-21 09:59 | PCPTNOTE ---
Patient declined PT at this time. Patient states she just walked to the bathroom and would like to rest before performing therapy. PT will continue to follow per plan of care.
[2023-10-21] MEDS: ACETAMINOPHEN 325 MG TABLET 650 MG PO ×2 (10:22)
[2023-10-21 11:27] LABS: Glucose Point of Care 231 mg/dl (65-105)
[2023-10-21] MEDS: INSULIN ASPART (*BKC) 100 UNITS/ML SUB-Q ×2 (11:41→16:47)
--- NOTE | 2023-10-21 13:30 | PCOTNOTE ---
Attempted to see pt for Occupational therapy treatment. Pt declined to participate due to stating I have a sinus infection...my eyes hurt, my head, face... Pt was educated/encouraged to increase mobility for strengthening/wellbeing with pt continuing to decline. RN was present and also educated pt on importance of therapy with no success. Will continue per poc duration/frequency tomorrow.
--- NOTE | 2023-10-21 13:54 | PCPTNOTE ---
Patient refused treatment this afternoon stating she has a sinus infection It is a killer and my head feels heavy. I just can't do therapy now. I will be fine when this clears up. PT will continue to follow per plan of care.
[2023-10-21 16:34] LABS: Glucose Point of Care 282 mg/dl (65-105)
[2023-10-21 20:09] LABS: Glucose Point of Care 240 mg/dl (65-105)
[2023-10-21 20:19] LABS: Pneumococcal Antigen Urine NOT DETECTED
[2023-10-21] MEDS: INSULIN GLARGINE (*BKC) 100 UNITS/ML 20 UNITS SUB-Q (20:48)
[2023-10-21 22:03] LABS: Legionella pneumophila Ag Ur NOT DETECTED
[2023-10-22] VITALS (19 sets, daily range): BP systolic 107–140; BP diastolic 53–60; PULSE 65–95; RESP 14–20; TEMP 35.5–36.3; O2SAT 91–97
[2023-10-22] MEDS: ALBUTEROL SULFATE NEB 2.5 MG/3 ML INH INHALATION ×3 (02:53→12:56)
[2023-10-22 05:15] LABS: Basophils Absolute Auto 0.1 K/mm3 (0.0-0.1); Basophils Percent Auto 0.7 % (0.2-1.2); Eosinophils Absolute Auto 0.3 K/mm3 (0-0.3); Eosinophils Percent Auto 2.3 % (0-4.4); Immature Granulocyte Absolute 0.22 K/mm3 (0.00-0.031); Lymphocytes Absolute Auto 3.94 K/mm3 (0.9-3.2); Lymphocytes Percent Auto 35.1 % (18.3-44.2); Mean Corpuscular HGB Conc 32.5 g/dl (32-36); Mean Corpuscular Volume 95.2 fl (80-100); Mean Platelet Volume 9.8 fl (7.4-10.4); Monocytes Absolute Auto 1.1 K/mm3 (0.1-0.6); Monocytes Percent Auto 9.4 % (2.6-8.5); Neutrophils Absolute Auto 5.7 K/mm3 (1.3-6.7); Neutrophils Percent Auto 50.5 % (45.5-73.1); Platelet Count Result 177 k/mm3 (150-375); Red Cell Distribution Width 14.1 % (11.5-14.5); White Blood Count 11.2 K/mm3 (4.5-10.0)
[2023-10-22 05:24] LABS: Alanine Aminotransferase 28 U/L (6-35); Albumin Level 3.7 g/dL (3.5-5.1); Alkaline Phosphatase 65 U/L (38-126); Anion Gap 3 mmol/L (4-12); Aspartate Amino Transferase 26 U/L (14-36); Bilirubin,Total 0.6 mg/dL (0.2-1.3); Blood Urea Nitrogen 27 mg/dL (7-17); Calcium 8.7 mg/dL (8.4-10.2); Carbon Dioxide 29 mmol/L (22-30); Chloride 104 mmol/L (98-107); Estimated CRCL calculation 57 ml/min; Estimated Glomerular Filt Rate > 60; Glucose 203 mg/dL (65-110); Potassium 3.6 mmol/L (3.4-5.0); Sodium 136 mmol/L (137-145)
[2023-10-22 08:04] LABS: Glucose Point of Care 202 mg/dl (65-105)
[2023-10-22] MEDS: INSULIN ASPART (*BKC) 100 UNITS/ML SUB-Q ×2 (08:13→17:11)
[2023-10-22] MEDS: INSULIN ASPART (*BKC) 100 UNITS/ML 7 UNITS SUB-Q ×3 (08:13→17:11)
[2023-10-22] MEDS: ENOXAPARIN 40 MG/0.4 ML SYRINGE SUB-Q (08:15)
[2023-10-22] MEDS: MEMANTINE 5 MG TABLET 10 MG PO ×2 (08:17→17:12)
[2023-10-22] MEDS: DOXYCYCLINE HYCLATE 100 MG TABLET PO ×2 (08:17→20:22)
[2023-10-22] MEDS: busPIRone HCL 5 MG TABLET 10 MG PO ×3 (08:17→17:12)
[2023-10-22] MEDS: guaiFENesin 600 MG/DEXTROMETHORPHAN 30 MG SR TAB 12 HR 1 TAB PO ×2 (08:17→20:22)
[2023-10-22] MEDS: NEBIVOLOL HCL 5 MG TABLET 10 MG PO (08:18)
[2023-10-22] MEDS: SERTRALINE HCL 50 MG TABLET 200 MG PO (08:18)
[2023-10-22] MEDS: ATORVASTATIN 10 MG TABLET PO (08:19)
[2023-10-22] MEDS: MELOXICAM 7.5 MG TABLET PO (08:19)
[2023-10-22] MEDS: FUROSEMIDE 40 MG TABLET PO (08:19)
[2023-10-22] MEDS: TOLNAFTATE 1% POWDER 45 GM BTL 1 APPLIC TOPICAL ×2 (08:19→20:22)
[2023-10-22] MEDS: ACETAMINOPHEN 325 MG TABLET 650 MG PO (08:34)
--- NOTE | 2023-10-22 08:34 | PCOTNOTE ---
Attempted to see pt for Occupational therapy treatment. Pt declined to participate in any self care tasks, functional tasks out of bed, and/or strengthening. Pt states, I'm dizzy, I'm hurting...I know the benefits of therapy. Pt continues to declined therapy treatment. Will attempt later today.
[2023-10-22 11:50] LABS: Glucose Point of Care 147 mg/dl (65-105)
--- NOTE | 2023-10-22 13:12 | PCPTNOTE ---
Patient refused treatment this session. Patient states she is not up to doing therapy today. Educated patient on the importance of participating in therapy to improve strength and mobility. Patient verbalizes understanding but continues to refuse.
--- NOTE | 2023-10-22 14:02 | PM.IMPN ---
Progress Note: A&P Assessment and Plan (1) Pneumonia: Code(s): J18.9 - Pneumonia, unspecified organism Status: Acute Assessment and Plan: CXR: Patchy bilateral pneumonia - Risk Factors: none - Complicating Factors: none - started on CAP tx: doxycycline due to patients long list of antibiotic allergies - Viral PCR: negative for Flu/COVID/RSV - M. pneumoniae pending, L. pneumophila Ag, and Pneumococcal Ag negative - No longer requiring O2 supplementation - supportive treatment tyl and ibu prn nebs prn prednisone discontinued due to improved wheezing and continued hyperglycemia - trend labs - incentive spirometer ordered (2) Hypoxia: Code(s): R09.02 - Hypoxemia Status: Acute Assessment and Plan: Likely due to patients on going pneumonia on top of COPD. Venous dopplers ordered due to ongoing leg swelling with shortness of breath. Recent venous duplex on 10/10/2023 was negative repeat was refused by the patient. An echo was obtained and impression LVEF 65-70% with grade I diastolic dysfunction and mild mitral and tricuspid valve regurgitation. IV lasix 40 mg x1. - resolved (3) Diastolic dysfunction: Code(s): I51.89 - Other ill-defined heart diseases Status: Acute Assessment and Plan: Severe lower extremity swelling. Patient refused lower extremity venous dopplers. Echo 10/17 revealed LVEF 65-70% with grade I diastolic dysfunction and mild mitral and tricuspid valve regurgitation. IV lasix x1. Started on 40 mg lasix PO. Patients lower extremities with pitting edema. - Monitor volume status. Patient intake is over 4L today likely contributing to ongoing edema despite diuresis. Will fluid restrict to 2L. - Omega obrien ordered - Monitor CMP Will check BNP (4) Type 2 diabetes mellitus: Qualifiers: Diabetes mellitus vermin exterminator insulin use: without vermin exterminator use Diabetes mellitus complication status: without complication Qualified Code(s): E11.9 - Type 2 diabetes mellitus without complications Code(s): E11.9 - Type 2 diabetes mellitus without complications Status: Acute Assessment and Plan: Overnight POC glucose > 500. Switch back on insulin basal bolus regimen - hypoglycemia protocol - POC blood glucose (5) Chronic obstructive pulmonary disease: Qualifiers: COPD type: unspecified COPD Qualified Code(s): J44.9 - Chronic obstructive pulmonary disease, unspecified Code(s): J44.9 - Chronic obstructive pulmonary disease, unspecified Status: Acute Assessment and Plan: In no acute exacerbation. (6) Hypertension: Qualifiers: Hypertension type: essential hypertension Qualified Code(s): I10 - Essential (primary) hypertension Code(s): I10 - Essential (primary) hypertension Status: Chronic Assessment and Plan: Stable. - Monitor Subjective Date/time seen: 10/22/23 14:02 Interval history: 83-year-old female with dementia, chronic obstructive pulmonary disease, type 2 diabetes mellitus, hypertension, anxiety, and depression who presented to the emergency department via EMS from home for evaluation of shortness of breath.? No overnight events. Does not like the fluid restrictions that she has been placed on. Reports some shortness of breath with exertion. Minimal cough. No leg swelling. Review of Systems Review of Systems: All systems reviewed & are unremarkable except as noted in HPI and below Exam Narrative: General: female in no acute respiratory distress who is nontoxic appearing, sitting up in bed. HEENT: Normocephalic. Atraumatic. Pupils equal round reactive to light. Extraocular movement intact. Sclera clear and anicteric. No facial asymmetry. Chest: Lungs are diminished with mild lower lobe crackles. No wheezing. CV: Heart was regular rate and rhythm. S1-S2. No murmurs, gallops, or rubs. Abd: Abdomen was soft. Nontender. Nondistended. Positive bowel sounds. No o
[2023-10-22 16:20] LABS: NT Pro B Type Natriuretic Pept 365 pg/mL (19.9-100)
[2023-10-22 16:58] LABS: Glucose Point of Care 300 mg/dl (65-105)
[2023-10-22 17:18] LABS: Appearance Urine Clear (Clear); Bacteria Urine None Seen /hpf; Bilirubin Urine Negative (Negative); Blood Urine 1+ (Negative); Color Urine Yellow (Yellow); Glucose Urine UA 2+ mg/dL (Negative); Ketones Urine Negative (Negative); Leukocyte Esterase Ur 2+ LEU/UL (Negative); Nitrate Urine Negative (Negative); Non Pathogenic Casts 0-2; Protein Urine Negative (Negative); RBC Urine 0-2 /hpf (0-2); Specific Grav Ur 1.015 (1.001-1.035); Squamous Epithelial Cell Urine None Seen /hpf (Few); Urobilinogen Urine 0.2 mg/dL (<2.0); pH Urine 5.5 (5.0-9.0)
[2023-10-22 17:46] LABS: Add Urine Microscopic? YES
[2023-10-22] MEDS: INSULIN GLARGINE (*BKC) 100 UNITS/ML 20 UNITS SUB-Q (20:22)
[2023-10-22] MEDS: IPRATROPIUM 0.5 MG/ALBUTEROL SULFATE 2.5 MG AMPUL.NEB 3 ML INHALATION (20:30)
[2023-10-22 20:32] LABS: Glucose Point of Care 192 mg/dl (65-105)
[2023-10-23] VITALS (15 sets, daily range): BP systolic 107–131; BP diastolic 42–67; PULSE 69–93; RESP 17–22; TEMP 36.2–36.4; O2SAT 91–96
[2023-10-23 06:10] LABS: Basophils Absolute Auto 0.1 K/mm3 (0.0-0.1); Basophils Percent Auto 0.9 % (0.2-1.2); Eosinophils Absolute Auto 0.3 K/mm3 (0-0.3); Eosinophils Percent Auto 3.3 % (0-4.4); Hematocrit 41.9 % (37.0-47.0); Hemoglobin 13.1 g/dL (12.0-15.0); Immature Granulocyte Percent A 2.1 % (0-0.5); Lymphocytes Absolute Auto 2.75 K/mm3 (0.9-3.2); Lymphocytes Percent Auto 29.3 % (18.3-44.2); Mean Corpuscular HGB Conc 31.3 g/dl (32-36); Mean Corpuscular Hemoglobin 30.2 pg (26-34); Mean Corpuscular Volume 96.5 fl (80-100); Mean Platelet Volume 9.7 fl (7.4-10.4); Monocytes Absolute Auto 0.9 K/mm3 (0.1-0.6); Monocytes Percent Auto 9.7 % (2.6-8.5); Neutrophils Absolute Auto 5.1 K/mm3 (1.3-6.7); Neutrophils Percent Auto 54.7 % (45.5-73.1); Platelet Count Result 177 k/mm3 (150-375); Red Blood Count 4.34 M/mm3 (4.2-5.4); Red Cell Distribution Width 13.8 % (11.5-14.5); White Blood Count 9.4 K/mm3 (4.5-10.0)
[2023-10-23 06:18] LABS: Alanine Aminotransferase 29 U/L (6-35); Albumin Level 3.4 g/dL (3.5-5.1); Alkaline Phosphatase 64 U/L (38-126); Anion Gap 4 mmol/L (4-12); Aspartate Amino Transferase 29 U/L (14-36); Bilirubin,Total 0.5 mg/dL (0.2-1.3); Blood Urea Nitrogen 26 mg/dL (7-17); Calcium 8.6 mg/dL (8.4-10.2); Carbon Dioxide 27 mmol/L (22-30); Chloride 105 mmol/L (98-107); Estimated CRCL calculation 63 ml/min; Estimated Glomerular Filt Rate > 60; Glucose 223 mg/dL (65-110); Magnesium 1.9 mg/dL (1.6-2.3); Potassium 3.7 mmol/L (3.4-5.0); Sodium 136 mmol/L (137-145)
[2023-10-23 07:56] LABS: Glucose Point of Care 203 mg/dl (65-105)
[2023-10-23] MEDS: INSULIN ASPART (*BKC) 100 UNITS/ML 7 UNITS SUB-Q ×3 (08:01→16:30)
[2023-10-23] MEDS: INSULIN ASPART (*BKC) 100 UNITS/ML SUB-Q ×3 (08:02→16:30)
[2023-10-23] MEDS: MEMANTINE 5 MG TABLET 10 MG PO ×2 (08:07→16:22)
[2023-10-23] MEDS: guaiFENesin 600 MG/DEXTROMETHORPHAN 30 MG SR TAB 12 HR 1 TAB PO ×2 (08:07→21:34)
[2023-10-23] MEDS: NEBIVOLOL HCL 5 MG TABLET 10 MG PO (08:07)
[2023-10-23] MEDS: SERTRALINE HCL 50 MG TABLET 200 MG PO (08:08)
[2023-10-23] MEDS: FUROSEMIDE 40 MG TABLET PO (08:08)
[2023-10-23] MEDS: MELOXICAM 7.5 MG TABLET PO (08:08)
[2023-10-23] MEDS: ATORVASTATIN 10 MG TABLET PO (08:08)
[2023-10-23] MEDS: busPIRone HCL 5 MG TABLET 10 MG PO ×3 (08:11→16:22)
[2023-10-23] MEDS: ENOXAPARIN 40 MG/0.4 ML SYRINGE SUB-Q (08:11)
[2023-10-23] MEDS: DOXYCYCLINE HYCLATE 100 MG TABLET PO ×2 (08:11→21:34)
[2023-10-23] MEDS: TOLNAFTATE 1% POWDER 45 GM BTL 1 APPLIC TOPICAL ×2 (08:12→21:35)
[2023-10-23] MEDS: IPRATROPIUM 0.5 MG/ALBUTEROL SULFATE 2.5 MG AMPUL.NEB 3 ML INHALATION ×3 (08:35→19:27)
[2023-10-23 11:14] LABS: Glucose Point of Care 218 mg/dl (65-105)
--- NOTE | 2023-10-23 11:25 | PC.NURSE ---
To MRI per wheelchair.
--- NOTE | 2023-10-23 11:44 | PM.IMPN ---
Progress Note: A&P Assessment and Plan (1) Pneumonia: Code(s): J18.9 - Pneumonia, unspecified organism Status: Acute Assessment and Plan: CXR: Patchy bilateral pneumonia - Risk Factors: none - Complicating Factors: none - started on CAP tx: doxycycline due to patients long list of antibiotic allergies - Viral PCR: negative for Flu/COVID/RSV - M. pneumoniae pending, L. pneumophila Ag, and Pneumococcal Ag negative - No longer requiring O2 supplementation - supportive treatment tyl and ibu prn nebs prn prednisone discontinued due to improved wheezing and continued hyperglycemia - trend labs - incentive spirometer ordered (2) Hypoxia: Code(s): R09.02 - Hypoxemia Status: Acute Assessment and Plan: Likely due to patients on going pneumonia on top of COPD. Venous dopplers ordered due to ongoing leg swelling with shortness of breath. Recent venous duplex on 10/10/2023 was negative repeat was refused by the patient. An echo was obtained and impression LVEF 65-70% with grade I diastolic dysfunction and mild mitral and tricuspid valve regurgitation. IV lasix 40 mg x1. - resolved (3) Diastolic dysfunction: Code(s): I51.89 - Other ill-defined heart diseases Status: Acute Assessment and Plan: Severe lower extremity swelling. Patient refused lower extremity venous dopplers. Echo 10/17 revealed LVEF 65-70% with grade I diastolic dysfunction and mild mitral and tricuspid valve regurgitation. IV lasix x1. Started on 40 mg lasix PO. Patients lower extremities with pitting edema. - Monitor volume status. Patient intake is over 4L today likely contributing to ongoing edema despite diuresis. Will fluid restrict to 2L. - Peg obrien ordered - Monitor CMP Will check BNP (4) Type 2 diabetes mellitus: Qualifiers: Diabetes mellitus complication status: without complication Diabetes mellitus termite control representative insulin use: without retirement use Qualified Code(s): E11.9 - Type 2 diabetes mellitus without complications Code(s): E11.9 - Type 2 diabetes mellitus without complications Status: Acute Assessment and Plan: Overnight POC glucose > 500. Switch back on insulin basal bolus regimen - hypoglycemia protocol - POC blood glucose (5) Chronic obstructive pulmonary disease: Qualifiers: COPD type: unspecified COPD Qualified Code(s): J44.9 - Chronic obstructive pulmonary disease, unspecified Code(s): J44.9 - Chronic obstructive pulmonary disease, unspecified Status: Acute Assessment and Plan: In no acute exacerbation. (6) Hypertension: Qualifiers: Hypertension type: essential hypertension Qualified Code(s): I10 - Essential (primary) hypertension Code(s): I10 - Essential (primary) hypertension Status: Chronic Assessment and Plan: Stable. - Monitor Time Spent With Patient Time with patient: 25 - 35 minutes Subjective Date/time seen: 10/23/23 11:44 Interval history: 83-year-old female with dementia, chronic obstructive pulmonary disease, type 2 diabetes mellitus, hypertension, anxiety, and depression who presented to the emergency department via EMS from home for evaluation of shortness of breath.? Patient is pleasant lying in bed. She had no overnight events and remains inpatient due to pending authorization for placement. Discussed the fluid restriction with the patient and she states understanding. She remains on the fluid restriction at this time with PO lasix ordered. Her edema has improved with this regimen and the peg hose. She denies chest pain, shortness of breath, nausea/vomiting and changes in bowel/bladder. Encouraged patient to work with PT/OT as tolerated. Review of Systems Review of Systems: All systems reviewed & are unremarkable except as noted in HPI and below Exam Narrative: General: female in no acute respiratory distress who is nontoxic appearing, sitting up in bed. HEENT:
--- NOTE | 2023-10-23 12:15 | PC.NURSE ---
Returned from MRI per wheelchair.
[2023-10-23 16:30] LABS: Glucose Point of Care 240 mg/dl (65-105)
[2023-10-23 21:25] LABS: Glucose Point of Care 285 mg/dl (65-105)
[2023-10-23] MEDS: INSULIN GLARGINE (*BKC) 100 UNITS/ML 20 UNITS SUB-Q (21:35)
[2023-10-24] VITALS (11 sets, daily range): BP systolic 106–117; BP diastolic 58–67; PULSE 74–91; RESP 17–20; TEMP 36.6; O2SAT 95
[2023-10-24 07:30] LABS: Glucose Point of Care 240 mg/dl (65-105)
[2023-10-24] MEDS: IPRATROPIUM 0.5 MG/ALBUTEROL SULFATE 2.5 MG AMPUL.NEB 3 ML INHALATION ×2 (08:31→13:32)
[2023-10-24] MEDS: SERTRALINE HCL 50 MG TABLET 200 MG PO (09:18)
[2023-10-24] MEDS: ENOXAPARIN 40 MG/0.4 ML SYRINGE SUB-Q (09:18)
[2023-10-24] MEDS: NEBIVOLOL HCL 5 MG TABLET 10 MG PO (09:18)
[2023-10-24] MEDS: guaiFENesin 600 MG/DEXTROMETHORPHAN 30 MG SR TAB 12 HR 1 TAB PO (09:18)
[2023-10-24] MEDS: FUROSEMIDE 40 MG TABLET PO (09:19)
[2023-10-24] MEDS: busPIRone HCL 5 MG TABLET 10 MG PO ×2 (09:19→12:11)
[2023-10-24] MEDS: ATORVASTATIN 10 MG TABLET PO (09:19)
[2023-10-24] MEDS: MELOXICAM 7.5 MG TABLET PO (09:19)
[2023-10-24] MEDS: MEMANTINE 5 MG TABLET 10 MG PO (09:19)
[2023-10-24] MEDS: DOXYCYCLINE HYCLATE 100 MG TABLET PO (09:19)
[2023-10-24] MEDS: TOLNAFTATE 1% POWDER 45 GM BTL 1 APPLIC TOPICAL (09:20)
[2023-10-24] MEDS: INSULIN ASPART (*BKC) 100 UNITS/ML 7 UNITS SUB-Q ×2 (09:24→12:11)
[2023-10-24] MEDS: INSULIN ASPART (*BKC) 100 UNITS/ML SUB-Q ×2 (09:24→12:12)
[2023-10-24 11:05] LABS: Alanine Aminotransferase 27 U/L (6-35); Albumin Level 3.6 g/dL (3.5-5.1); Alkaline Phosphatase 64 U/L (38-126); Anion Gap 7 mmol/L (4-12); Aspartate Amino Transferase 25 U/L (14-36); Bilirubin,Total 0.6 mg/dL (0.2-1.3); Blood Urea Nitrogen 20 mg/dL (7-17); Calcium 8.8 mg/dL (8.4-10.2); Carbon Dioxide 24 mmol/L (22-30); Chloride 104 mmol/L (98-107); Estimated CRCL calculation 63 ml/min; Estimated Glomerular Filt Rate > 60; Glucose 395 mg/dL (65-110); Potassium 3.5 mmol/L (3.4-5.0); Sodium 135 mmol/L (137-145)
[2023-10-24 11:11] LABS: Basophils Absolute Auto 0.1 K/mm3 (0.0-0.1); Basophils Percent Auto 0.7 % (0.2-1.2); Eosinophils Absolute Auto 0.2 K/mm3 (0-0.3); Eosinophils Percent Auto 2.2 % (0-4.4); Hematocrit 41.6 % (37.0-47.0); Hemoglobin 13.7 g/dL (12.0-15.0); Immature Granulocyte Absolute 0.12 K/mm3 (0.00-0.031); Immature Granulocyte Percent A 1.4 % (0-0.5); Lymphocytes Absolute Auto 1.78 K/mm3 (0.9-3.2); Lymphocytes Percent Auto 20.9 % (18.3-44.2); Mean Corpuscular HGB Conc 32.9 g/dl (32-36); Mean Corpuscular Volume 94.1 fl (80-100); Mean Platelet Volume 10.3 fl (7.4-10.4); Monocytes Absolute Auto 0.7 K/mm3 (0.1-0.6); Monocytes Percent Auto 8.7 % (2.6-8.5); Neutrophils Absolute Auto 5.6 K/mm3 (1.3-6.7); Neutrophils Percent Auto 66.1 % (45.5-73.1); Platelet Count Result 185 k/mm3 (150-375); Red Blood Count 4.42 M/mm3 (4.2-5.4); Red Cell Distribution Width 14.2 % (11.5-14.5); White Blood Count 8.5 K/mm3 (4.5-10.0)
[2023-10-24 11:20] LABS: Glucose Point of Care 373 mg/dl (65-105)
[2023-10-24 15:20] LABS: SARS-CoV-2 RNA PCR Negative (Negative)
--- NOTE | 2023-10-24 16:59 | PM.DS ---
DS: Admitting Diagnosis Discharge Date 10/24/23 Admitting Diagnosis Pneumonia hypoxia diastolic dysfunction type 2 diabetes COPD hypertension DS: Discharge Diagnosis Discharge Diagnosis (1) Pneumonia: Code(s): J18.9 - Pneumonia, unspecified organism Status: Acute (2) Hypoxia: Code(s): R09.02 - Hypoxemia Status: Acute (3) Diastolic dysfunction: Code(s): I51.89 - Other ill-defined heart diseases Status: Acute (4) Type 2 diabetes mellitus: Qualifiers: Diabetes mellitus intermediate insulin use: without intermediate use Diabetes mellitus complication status: without complication Qualified Code(s): E11.9 - Type 2 diabetes mellitus without complications Code(s): E11.9 - Type 2 diabetes mellitus without complications Status: Acute (5) Chronic obstructive pulmonary disease: Qualifiers: COPD type: unspecified COPD Qualified Code(s): J44.9 - Chronic obstructive pulmonary disease, unspecified Code(s): J44.9 - Chronic obstructive pulmonary disease, unspecified Status: Acute (6) Hypertension: Qualifiers: Hypertension type: essential hypertension Qualified Code(s): I10 - Essential (primary) hypertension Code(s): I10 - Essential (primary) hypertension Status: Chronic DS: Summary Hospital Course Reason for hospitalization: Pneumonia hypoxia diastolic dysfunction type 2 diabetes COPD hypertension Hospital Course: 83-year-old female with dementia, chronic obstructive pulmonary disease, type 2 diabetes mellitus, hypertension, anxiety, and depression who presented to the emergency department via EMS from home for evaluation of shortness of breath.?Chest XR revealed patchy bilateral pneumonia. Patient started on doxycycline due to extensive list of antibiotic allergies. Completed course during hospital admission. She was originally requiring oxygen supplementation, however this resolved and she was discharged on room air. Patient continues to have lower extremity edema. She refused venous dopplers. An echo was obtained and revealed LVEF 65-70% with grade I diastolic dysfunction and mild mitral and tricuspid valve regurgitation. Started on 40 mg lasix PO. Edema has since been improving with the use of omega hose as well. Patient discharged in a stable condition to SNF. She is to follow up with her PCP in 1 week. Status at Discharge Functional status at discharge: uses cane/walker Time Spent with Patient Time attestation: Total time spent providing and/or coordinating discharge services: Time spent: Greater than 30 minutes Exam Narrative: General: female in no acute respiratory distress who is nontoxic appearing, sitting up in bed. HEENT: Normocephalic. Atraumatic. Pupils equal round reactive to light. Extraocular movement intact. Sclera clear and anicteric. No facial asymmetry. Chest: Lungs are diminished. No crackles or wheezing. CV: Heart was regular rate and rhythm. S1-S2. No murmurs, gallops, or rubs. Abd: Abdomen was soft. Nontender. Nondistended. Positive bowel sounds. No organomegaly or masses. Ext: improvement to pitting edema with Omega hose on. No clubbing, cyanosis. 2+ DP pulses bilaterally. Neuro: Patient is alert and oriented x4. Speech is clear. Psych: Normal mood and affect. Patient is pleasant and cooperative. Skin: Warm and dry. No rashes noted. DS: Data Data Completed and Pending Completed studies during hospitalization: Chest XR Chest XR Labs on day of discharge: Labs from last 24 hours 10/24/23 10/24/23 10/24/23 14:36 11:07 10:48 WBC 8.5 RBC 4.42 Hgb 13.7 Hct 41.6 MCV 94.1 MCH 31.0 MCHC 32.9 RDW 14.2 Plt Count 185 MPV 10.3 Immature Gran % (Auto) 1.4 H Neut % (Auto) 66.1 Lymph % (Auto) 20.9 [place] % (Auto) 8.7 H Eos % (Auto) 2.2 Baso % (Auto) 0.7 Lymph # (Auto) 1.78 [place] # (Auto) 0.7 H Eos # (Auto) 0.2 Baso # (Auto)
[2023-10-24 18:33] LABS: Mycoplasma IgM Antibody Titer 111 U/mL
== END 2023-10-24 16:05 | DRG 194 ==
LOC: ANHED 13:20 → ANH3MEDSUR 13:43
PROVIDERS: Internal Medicine; Physician Assistant; Student in an Organized Health Care Education/Training Program; Admitting Provider Family Medicine; Emergency Provider Emergency Medicine; PCP Internal Medicine; Visit Provider Internal Medicine
DX: J18.9 Pneumonia, unspecified organism (principal); J44.0 Chronic obstructive pulmonary disease with (acute) lower respiratory infection; E11.65 Type 2 diabetes mellitus with hyperglycemia; F03.90 Unspecified dementia, unspecified severity, without behavioral disturbance, psychotic disturbance, mood disturbance, and anxiety; F41.9 Anxiety disorder, unspecified; E78.5 Hyperlipidemia, unspecified; E03.9 Hypothyroidism, unspecified; F32.A Depression, unspecified; I11.9 Hypertensive heart disease without heart failure; I08.1 Rheumatic disorders of both mitral and tricuspid valves; M19.90 Unspecified osteoarthritis, unspecified site; R60.0 Localized edema; Z11.52 Encounter for screening for COVID-19; Z20.822 Contact with and (suspected) exposure to COVID-19; Z79.84 Long term (current) use of oral hypoglycemic drugs; Z79.4 Long term (current) use of insulin; Z88.0 Allergy status to penicillin; Z85.51 Personal history of malignant neoplasm of bladder; Z87.891 Personal history of nicotine dependence
CPT/HCPCS: 36415; 71045; 71046; 80048; 80053; 81001; 82948; 83036; 83735; 83880; 85025; 85027; 86738; 87040; 87449; 87635; 87637; 87641; 87899; 93005; 93306; 94640; 96365; 96367; 96372; 96375; 96376; 97116; 97161; 97165; 97530; 97535; 99285; A9270; G0378; J0456; J1650; J1815; J1940; J2919; J7512